=== PATIENT | female | born 1985 | race Caucasian/White ===

== ENCOUNTER 2021-03-14 15:53 | Emergency (ER) | payer MEDICAID, SELFPAY ==
--- NOTE | ~2021-03-14 | XR_ITS ---
EXAMINATION: XR CHEST CLINICAL INFORMATION: Cough and pain COMPARISON: 09/13/2017. TECHNIQUE: 2 views of the chest were obtained. FINDINGS: No significant abnormality is noted involving the heart, lungs, mediastinum, bony thorax or soft tissues. XR/XR chest 2V IMPRESSION: Unremarkable examination.
--- NOTE | 2021-03-14 18:36 | ED_ITS ---
HPI - URI/Sore Throat General Chief Complaint: Upper Respiratory Symptoms Stated Complaint: sore throat, cp, headache Time Seen by Provider: 03/14/21 18:30 Source: patient and spanish medical interpreter Mode of arrival: ambulatory Limitations: language barrier History of Present Illness HPI Narrative: 35-year-old female previously healthy here with complaints of sore throat, chest discomfort with coughing, bilateral ear pain since yesterday. No fevers, chills or shortness of breath. Patient has not received a COVID vaccine. Related Data Previous Rx's Medication Instructions Recorded benzonatate 100 mg capsule 100 mg PO TID PRN #10 cap 03/14/21 (Tessalon Perles) cyclobenzaprine 10 mg tablet 10 mg PO TID PRN #10 tab 03/14/21 ibuprofen 600 mg tablet 600 mg PO Q8H PRN #15 tab 03/14/21 Allergies Allergy/AdvReac Type Severity Reaction Status Date / Time shellfish derived Allergy Severe SWELLING Unverified 03/14/21 18:47 [SHELLFISH DERIVED] Review of Systems Review of Systems: Yes all other systems are reviewed and are negative Constitutional: Constitutional: Reports no additional constitutional complaints, Denies body ache(s), Denies chills, Denies fever(s), Denies headache(s) and Denies weakness Eyes: Eyes: Reports no additional eye complaints and Denies change in vision ENT: Reports system reviewed and no additional complaints, except as documented, Denies dizziness, Reports otalgia, Denies headache(s), Denies nasal congestion, Denies nasal discharge, Denies neck pain and Reports sore throat Cardiovascular: Cardiovascular: Reports no additional cardiovascular complaints, Reports chest pain (With coughing only), Denies leg edema and Denies dyspnea Respiratory: Respiratory: Reports no additional respiratory complaints, Reports cough and Denies dyspnea Gastrointestinal: Gastrointestinal: Reports no additional gastrointestinal complaints, Denies abdominal pain, Denies diarrhea, Denies nausea and Denies vomiting Genitourinary: Genitourinary: Reports no additional female genitourinary complaints and Denies urinary incontinence Musculoskeletal: Musculoskeletal: Reports no additional musculoskeletal complaints, Denies back pain, Denies arthralgias, Denies joint swelling, Denies neck pain, Denies numbness and Denies tingling Integumentary/Breasts: Skin/Breast: Reports system reviewed and no additional complaints, except as docu and Denies rash Neurologic: Reports system reviewed and no additional complaints, except as documented, Denies Abnormal speech present, Denies dizziness, Denies headache(s), Denies numbness, Denies tingling and Denies weakness PMFSH Past Medical History Attestation statement: The following information was validated with the patient. Source: old records reviewed and nursing notes reviewed Medical History (Updated 03/14/21 @ 20:06 by Romy Black NP) COVID-19 Social History Social History Advance Directives: No Advance Directives Information Provided: Yes Patient : No Physical Exam Vital Signs: Vital Signs: Last Vital Signs Temp 98.8 F 03/14/21 18:43 Pulse 66 03/14/21 18:43 Resp 16 03/14/21 18:43 BP 136/87 03/14/21 18:43 Pulse Ox 100 03/14/21 18:43 Body Mass Index 34.3 Const: General: cooperative, healthy appearing, comfortable and no acute distress Orientation/consciousness: patient oriented x3 Limitations: no limitations HENMT: Head: Yes normal to inspection Ears: hearing grossly normal bilaterally and TM's normal bilaterally General nose exam: Normal external nose present Face and sinus: Yes normal facial exam Mouth: Normal oral and palatal mucosa present Throat: Yes posterior oropharynx normal, Yes uvula midline, Yes abnormal tonsil (Bilateral erythema. No exudate) and No peritonsillar mass Eyes: General: appearance normal, both eyes and all related structures Pupils: Equal, round and reactive pupils present Neck: Neck: Yes normal visual inspection, Yes full ROM and Yes no lymphadenopathy Chest: Chest palpation & inspection: normal inspection of the chest Resp: Effort & Inspection: normal respiratory effort Auscultation: clear to auscultation bilaterally Cardio: Rate: regular rate Rhythm: regular rhythm Peripheral pulses: Peripheral pulses 2+ throughout GI: Inspection: Yes normal to inspection Palpation (GI): Soft to palpation and nontender Auscultation: normal bowel sounds Back/Spine/Pelvis: Thoracic/Lumbar Spine: thoracic and lumbar spine normal to inspection Skin: General skin exam: no rashes or lesions noted Neuro: General: patient oriented x3, no focal motor deficits and normal sensation to monofilament Cranial nerves: Yes Equal, round and reactive pupils present Cognition (Neuro): normal cognition Speech: No Abnormal speech present Gait exam (Neuro): Normal gait present Motor exam (neuro): 5/5 motor strength present throughout Extrem: General: Yes normal to inspection Course Course Course Narrative: 35-year-old female here with upper respiratory symptoms since yesterday. Will check COVID screen, strep screen, chest x-ray 2020-COVID screen and strep negative. Chest x-ray shows no acute finding. Hemodynamically stable. Saturations are stable. There was report that the patient was feeling short of breath however she speaking full sentences with no tachypnea noted. PERC score 0. Patient is well-appearing is tolerating p.o.. Reviewed worrisome signs and symptoms and when to return to the emergency department. Comfortable discharge home. MDM - URI/Sore Throat Medical Records Attestation: I reviewed the patient's medical records. Lab Data Attestation: I reviewed the patient's lab results. Labs: Lab Results 03/14/21 03/14/21 Range/Units 18:57 18:57 COVID-19 (STEFANI) Negative (Negative) COVID-19 Clin Com See Note S. pyogenes GrpA ANUSHA Negative (Negative) Imaging Data Chest x-ray: Attestation: I personally reviewed and interpreted this imaging study as follows: Radiologist's impression: [place] [id number] XRay Report Signed Patient: Mary Gonzalez MR#: [id number] : 1985 Acct:[id number] Age/Sex: 35 / F ADM Date: 03/14/21 Loc: .ED Attending Dr: Ordering Physician: Romy Black NP Date of Service: 03/14/21 Procedure(s): XR chest 2V Accession Number(s): [id number] cc: Romy Black NP~ EXAMINATION: XR CHEST CLINICAL INFORMATION: Cough and pain COMPARISON: 09/13/2017. TECHNIQUE: 2 views of the chest were obtained. FINDINGS: No significant abnormality is noted involving the heart, lungs, mediastinum, bony thorax or soft tissues. XR/XR chest 2V IMPRESSION: Unremarkable examination. Discharge Plan Discharge Clinical Impression: Upper respiratory infection, Chest wall muscle strain Patient Disposition: Home, Self-Care Instructions: Upper Respiratory Infection (ED), Chest Wall Pain (ED) Additional Instructions: Your COVID screen and strep test are negative Increase fluids, rest Your chest x-ray showed no evidence of pneumonia Prescriptions: New benzonatate [Tessalon Perles] 100 mg capsule 100 mg PO TID PRN (Reason: cough) Qty: 10 RF: 0 cyclobenzaprine 10 mg tablet 10 mg PO TID PRN (Reason: muscle spasm) Qty: 10 RF: 0 ibuprofen 600 mg tablet 600 mg PO Q8H PRN (Reason: pain) Qty: 15 RF: 0 Referrals: Betsy Naqvi MD [Primary Care Provider] - 2 days Stand Alone Forms: Work/School Release Interventions: ED Discharge Assessment Last Done: 03/14/21 20:19 Print Language: Ukrainian
[2021-03-14 18:43] VITALS: BP 136/87; PULSE 66; RESP 16; TEMP 37.1; O2SAT 100; BMI 34.3
[2021-03-14 19:16] LABS: Strep A Nucleic Acid Negative (Negative)
[2021-03-14 19:27] LABS: COVID-19 Test Negative (Negative); IDNOW Serial# 9DD0AD1C
== END 2021-03-14 20:20 | disposition home or self-care (01) ==
PROVIDERS: Nurse Practitioner Family; Emergency Provider Internal Medicine; PCP Pediatrics
DX: J06.9 Acute upper respiratory infection, unspecified (principal); R51.9 Headache, unspecified; H92.03 Otalgia, bilateral; Z79.899 Other long term (current) drug therapy; Z20.822 Contact with and (suspected) exposure to COVID-19
CPT/HCPCS: 36415; 71046; 87635; 87651; 99283

== ENCOUNTER 2021-05-20 15:05 | Outpatient (REF) | payer MEDICAID, SELFPAY ==
--- NOTE | ~2021-05-20 | XR_ITS ---
EXAMINATION: XR HIP, LEFT CLINICAL INFORMATION: Left hip pain since trauma 2 days ago. Unable to ambulate. COMPARISON: None TECHNIQUE: Two views of the left hip. FINDINGS: There is no fracture or dislocation. 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 The left bony pelvis appears intact. No joint narrowing or erosive change. XR/XR hip LT min 2V IMPRESSION: No fracture or dislocation.
== END 2021-05-20 15:06 | disposition home or self-care (01) ==
LOC: HO.XRAY 15:05
PROVIDERS: Absent Provider Pediatrics; PCP Pediatrics; Visit Provider Internal Medicine
DX: M25.552 Pain in left hip (principal)
CPT/HCPCS: 73502

== ENCOUNTER 2021-07-08 09:45 | Outpatient (REF) | payer MEDICAID, SELFPAY ==
--- NOTE | ~2021-07-08 | US_ITS ---
EXAMINATION: US ABDOMEN COMPLETE CLINICAL INFORMATION: Elevated liver transaminase levels. COMPARISON: None TECHNIQUE: Real-time imaging of the abdominal viscera. FINDINGS: PANCREAS: The pancreas is partly obscured. Visualized portions are unremarkable. ABDOMINAL AORTA: The proximal, mid, and distal segments are normal in caliber. INFERIOR VENA CAVA: Visualized portions are normal. LIVER: The liver is mildly echogenic consistent with hepatic steatosis. Focal fatty sparing is seen in the gallbladder fossa and kika hepatis. The liver contour is normal. Liver size is unremarkable. No focal hepatic lesion. There is no intrahepatic biliary duct dilatation seen. GALLBLADDER: Normal. The gallbladder is physiologically distended without evidence of stones, sludge, polyps, wall thickening or pericholecystic fluid. COMMON BILE DUCT: Normal in caliber measuring 0.3 cm in diameter. RIGHT KIDNEY: Normal. No hydronephrosis. No renal calculi or focal parenchymal lesions. The kidney measures 12.2 cm in maximum dimension. LEFT KIDNEY: Normal. No hydronephrosis. No renal calculi or focal parenchymal lesions. The kidney measures 11.0 cm in maximum dimension. SPLEEN: Normal. The spleen measures 11.4 cm in maximum dimension. FREE FLUID: None. US/US abdomen complete IMPRESSION: Mildly increased hepatic echogenicity consistent with hepatic steatosis. Focal fatty sparing is evident. No other abnormality.
== END 2021-07-08 09:46 | disposition home or self-care (01) ==
LOC: HO.HMGCX 09:45
PROVIDERS: Visit Provider Pediatrics
DX: R74.01 Elevation of levels of liver transaminase levels (principal)
CPT/HCPCS: 76700

== ENCOUNTER 2021-07-28 13:07 | Outpatient (REF) | payer MEDICAID, SELFPAY ==
[2021-07-28 15:00] LABS: MANUAL DIFF FLAG NO
[2021-07-28 15:08] LABS: Basophils Absolute Auto 0.1 X10*3/uL (0.0-0.2); Basophils Percent Auto 0.7 % (0-2); Eosinophils Absolute Auto 0.4 X10*3/uL (0.0-0.4); Eosinophils Percent Auto 3.4 % (0-4); Hematocrit 42.1 % (37.0-47.0); Hemoglobin 13.5 g/dl (12.0-16.0); Imm Gran Abs Auto 0.02 X10*3/uL (0.00-0.03); Imm Gran Pct Auto 0.2 % (0.0-0.4); Lymphocytes Absolute Auto 1.8 X10*3/uL (1.2-4.9); Lymphocytes Percent Auto 16.6 % (20-40); Mean Corpuscular HGB Conc 32.1 g/dl (31.0-35.0); Mean Corpuscular Hemoglobin 27.3 pg (27.0-33.0); Mean Corpuscular Volume 85.1 fL (80.0-98.0); Mean Platelet Volume 9.6 fL (9.4-12.3); Monocytes Absolute Auto 0.7 X10*3/uL (0.1-1.2); Monocytes Percent Auto 6.5 % (2-11); Neutrophils Percent Auto 72.6 % (45-73); Platelet Count 293 X10*3/uL (160-400); Red Blood Count 4.95 X10*6/uL (4.20-5.50)
[2021-07-28 15:38] LABS: Alanine Aminotransferase 328 U/L (0-31); Albumin Level 4.6 g/dL (3.5-5.0); Alkaline Phosphatase 76 U/L (39-117); Anion Gap 12 (12-20); Aspartate Amino Transferase 178 U/L (5-31); Bilirubin Total 0.4 mg/dL (0.0-1.0); Blood Urea Nitrogen 9 mg/dL (9-16); Calcium 10.3 mg/dL (8.4-10.2); Carbon Dioxide 30 mmol/L (22-29); Chloride 104 mmol/L (96-108); Estimated Glomerular Filt Rate > 60; Gamma Glutamyl Transpeptidase 324 U/L (7-33); Glucose Random 82 mg/dL (60-115); Potassium 4.7 mmol/L (3.3-5.1); Sodium 141 mmol/L (135-145); Total Protein 7.8 g/dL (6.5-8.0)
[2021-07-28 15:56] LABS: Ferritin 163 ng/mL (10-122)
[2021-07-29 08:21] LABS: HBS Num1 168.88 mIU/mL (0-7.99); HIV AB/AG Nonreactive (Nonreactive); HIV Num 1 0.04 S/CO (0.00-0.99); ~Hepatitis B Surface Antibody REACTIVE (Nonreactive)
[2021-07-29 08:35] LABS: HBc Num1 0.09 S/CO (0.00-0.79); HBsAGNum1 0.23 S/CO (0.00-0.99); Hepatitis B Core Antibody Nonreactive (Nonreactive); Hepatitis B Surface Antigen Negative (Negative)
[2021-07-29 14:15] LABS: Anti Nuclear Antibody Screen NEGATIVE (NEGATIVE)
[2021-08-01 13:16] LABS: Alpha Fetoprotein 4.2 ng/mL
[2021-08-02 15:27] LABS: Mitochondrial Antibodies NEGATIVE (NEGATIVE)
[2021-08-03 14:02] LABS: Smooth Muscle Antibody <20 U (<20)
== END 2021-07-28 13:08 | disposition home or self-care (01) ==
LOC: HO.LAB 13:07
PROVIDERS: PCP Pediatrics; Referring Provider Pediatrics; Visit Provider Nurse Practitioner
DX: Z11.4 Encounter for screening for human immunodeficiency virus [HIV] (principal); R79.89 Other specified abnormal findings of blood chemistry; K21.9 Gastro-esophageal reflux disease without esophagitis
CPT/HCPCS: 36415; 80053; 82105; 82728; 82977; 85025; 86015; 86038; 86039; 86255; 86256; 86704; 86706; 87340; 87389; 99202

== ENCOUNTER 2021-08-01 10:00 | Outpatient (RCR) | payer MEDICAID, SELFPAY | END 2021-08-23 13:51 | disposition home or self-care (01) | LOC: HO.PT 10:00 | PROVIDERS: PCP Pediatrics; Visit Provider Family Medicine | DX: M54.50 Low back pain, unspecified (principal); M25.552 Pain in left hip | CPT/HCPCS: 97110; 97162; 97530 ==

== ENCOUNTER 2021-08-24 11:05 | Outpatient (REF) | payer MEDICAID, SELFPAY ==
--- NOTE | ~2021-08-24 | US_ITS ---
EXAMINATION: US ABDOMEN LIMITED WITH LIVER ELASTOGRAPHY CLINICAL INFORMATION: [place] COMPARISON: Previous exam June 2021 TECHNIQUE: Real-time imaging of the abdominal viscera. Noninvasive ultrasound liver fibrosis assessment is performed using Justin ElastPQ point quantification shear wave elastography (2D-SWE) with a C5-2 MHz transducer. Multiple elastography samples are obtained. FINDINGS: PANCREAS: The visualized pancreatic body is normal in appearance. The remainder of the pancreas is obscured from visualization by the overlying bowel gas. LIVER: Liver echotexture is increased probably representing fatty infiltration. There are hypoechoic areas in the liver probably representing areas of focal fatty sparing. No other focal liver lesion is seen. There is no biliary duct dilatation. The liver is slightly enlarged. The right lobe measures 20 cm in length. The left lobe measures 12 cm in length. Portal flow is normal/hepatopedal Shear wave liver elastography median stiffness is 1. 9 m/s (reference: normal median stiffness is 1.3 m/s or less). IQR/median stiffness to assess sampling precision is 0.1 (reference: good quality data set is IQR/median stiffness of 0.15 or less). GALLBLADDER: Normal. The gallbladder is physiologically distended without evidence of stones, sludge, polyps, wall thickening or pericholecystic fluid. COMMON BILE DUCT: Normal in caliber measuring 0.3 cm in diameter. RIGHT KIDNEY: Normal. No hydronephrosis. No renal calculi or focal parenchymal lesions. The kidney measures 11.3 cm in maximum dimension. FREE FLUID: None. US/US abdomen angulo w elastography IMPRESSION: 1. Impression slightly enlarged echogenic liver suggestive of fatty infiltration with areas of focal fatty sparing. 2. Liver elastography: Adequate liver sampling. Suggestive of compensated advanced chronic liver disease but need further test for confirmation. REFERENCE: Society of Radiologists in Ultrasound Liver Stiffness Thresholds (2020): LIVER STIFFNESS THRESHOLDS: *Liver Stiffness equal or less than 1.3 m/s: High probability of being normal. *Liver Stiffness less than 1.7 m/s: In the absence of other known clinical signs, rules out compensated advanced chronic liver disease. *Liver Stiffness 1.7-2.1 m/s: Suggestive of compensated advanced chronic liver disease but need further test for confirmation. *Liver Stiffness over 2.1 m/s: Rules in compensated advanced chronic liver disease. *Liver Stiffness over 2.4 m/s: Suggestive of clinically significant portal hypertension. QUALITY OF DATA SET: *IQR/Median value equal or less than 0.15 implies a quality data set. *IQR/Median value over 0.15 implies a poor quality data set. SIGNIFICANT CHANGE FROM PRIOR EXAM: Significant change if liver stiffness measurement is 10% or greater from prior exam. OTHER CONSIDERATIONS: The stage of liver fibrosis may be overestimated in the setting of acute hepatitis, liver inflammation, elevated liver function tests, hepatic vascular congestion, obstructive cholestasis, non-fasting state, and infiltrative diseases such as amyloidosis and lymphoma. In some patients with NAFLD, the liver stiffness thresholds for compensated advanced chronic liver disease may be lower. In causes other than viral hepatitis and NAFLD, liver stiffness thresholds are not well established.
== END 2021-08-24 11:06 | disposition home or self-care (01) ==
LOC: HO.US 11:05
PROVIDERS: PCP Pediatrics; Visit Provider Nurse Practitioner
DX: R79.89 Other specified abnormal findings of blood chemistry (principal); K75.81 Nonalcoholic steatohepatitis (NASH)
CPT/HCPCS: 76705; 76981

== ENCOUNTER 2022-02-01 08:50 | Emergency (ER) | payer MEDICAID, SELFPAY ==
--- NOTE | ~2022-02-01 | XR_ITS ---
EXAMINATION: XR HAND, LEFT CLINICAL INFORMATION: Pain and swelling COMPARISON: None TECHNIQUE: PA, lateral, and oblique views of the left hand. FINDINGS: The bones and soft tissues are normal. No fracture. Alignment is anatomic. Joint spaces are maintained. No erosions or soft tissue calcifications. XR/XR hand LT min 3V IMPRESSION: Normal left hand.
[2022-02-01 09:02] VITALS: BP 130/86; PULSE 72; RESP 16; TEMP 36.6; O2SAT 95; BMI 37.4
--- NOTE | 2022-02-01 09:12 | ED.GENADULT ---
HPI - General Adult General Chief complaint: Extremity Problem Stated complaint: left hand pain swollen Time Seen by Provider: 02/01/22 09:12 Source: patient and foreign language interpreter Mode of arrival: ambulatory Limitations: language barrier History of Present Illness HPI narrative: Patient is a 36 year old female presenting to the emergency department today with left hand and wrist pain. Patient states that starting yesterday, her left wrist began to hurt and cause pain down into her left hand. Patient denies any dizziness, lightheadedness, abdominal pain, nausea, vomiting, fever, chills, blurry vision, double vision, loss of vision, chest pain, difficulty breathing, shortness of breath, back pain, night sweats, pain with urination, increased urinary frequency, increased urinary urgency, blood in her urine or stool, syncope or a near syncopal episode, recent trauma or falls, bowel incontinence, bladder incontinence, bowel retention, bladder retention, or any other complaints at this time. Onset (ago): day(s) (1) Severity: mild Severity scale (1-10): 3 Relieving factors: none Exacerbating factors: movement Associated symptoms: denies other symptoms Treatments prior to arrival: none Related Data Home Medications Medication Instructions Recorded Confirmed albuterol sulfate 90 mcg/actuation 0 mcg inhalation 07/28/21 aerosol inhaler (ProAir HFA) duloxetine 20 mg capsule,delayed 20 mg PO DAILY 07/28/21 release fluticasone propionate 110 2 puff inhalation BID 07/28/21 mcg/actuation HFA aerosol inhaler (Flovent HFA) Previous Rx's Medication Instructions Recorded benzonatate 100 mg capsule 100 mg PO TID PRN cough #10 caps 03/14/21 (Bertha Jean) cyclobenzaprine 10 mg tablet 10 mg PO TID PRN muscle spasm #10 03/14/21 tabs ibuprofen 600 mg tablet 600 mg PO Q8H PRN pain #15 tabs 03/14/21 famotidine 40 mg tablet (Pepcid) 40 mg PO BEDTIME #30 tabs 07/28/21 naproxen 500 mg tablet 500 mg PO BID 7 days #14 tabs 02/01/22 Allergies Allergy/AdvReac Type Severity Reaction Status Date / Time shellfish derived Allergy Severe SWELLING Verified 07/28/21 13:33 [SHELLFISH DERIVED] Review of Systems Constitutional: Constitutional: Reports no additional constitutional complaints, Denies chills, Denies fever(s) and Denies night sweats Eyes: Eyes: Reports no additional eye complaints, Denies blurry vision, Denies change in vision, Denies diplopia, Denies eye discharge, Denies loss of vision and Denies eye pain ENT: Denies dizziness Cardiovascular: Cardiovascular: Reports no additional cardiovascular complaints, Denies chest pain, Denies lightheadedness, Denies Loss of Consciousness and Denies dyspnea Respiratory: Respiratory: Reports no additional respiratory complaints and Denies dyspnea Gastrointestinal: Gastrointestinal: Reports no additional gastrointestinal complaints, Denies abdominal pain, Denies melena, Denies hematochezia, Denies change in bowel habits and Denies change in stool character Genitourinary: Genitourinary: Denies hematuria, Denies urinary frequency, Denies dysuria, Denies urinary incontinence, Denies urinary hesitancy and Denies urinary urgency Musculoskeletal: Musculoskeletal: Reports no additional musculoskeletal complaints, Denies numbness and Denies tingling Comments: left wrist pain Neurologic: Denies dizziness, Denies loss of vision, Denies numbness and Denies tingling Psychiatric: Psychiatric: Reports no additional psychiatric complaints Endocrine: Endocrine: Reports no additional endocrine complaints Hematologic/Lymphatic: Hematologic/Lymphatic: Reports no additional hematologic/lymphatic complaints Allergic/Immunologic: Allergic/Immunologic: Reports no additional allergic/immunologic complaints PMFSH Past Medical History Attestation statement: The following information was validated with the patient. Source: old records reviewed Medical History COVID-19 Social History Social History Advance Directives: No Advance Directives Information Provided: Yes Physical Exam ED Vital Signs: Vital Signs - 24 hr 02/01/22 09:02 Temperature 98 F Pulse Rate 72 Respiratory Rate 16 Blood Pressure 130/86 Pulse Oximetry 95 Oxygen Delivery Method Room Air BMI result Body Mass Index 37.4 Const General: cooperative, no acute distress, alert and awake Nutritional Appearance: well nourished Orientation/consciousness: patient oriented x3 Limitations: no limitations HENMT Head: Yes normal to inspection and Yes atraumatic Ears: hearing grossly normal bilaterally and external ears normal General nose exam: Normal external nose present, no nasal discharge noted and no epistaxis Face and sinus: Yes normal facial exam, No abrasion and No laceration Mouth: Normal oral and palatal mucosa present, no drooling and no muffled voice Eyes General: appearance normal, both eyes and all related structures Periorbital: periorbital findings normal Eyelids: Yes eyelids normal Conjunctivae: conjunctivae normal Pupils: Equal, round and reactive pupils present EOM: EOMs intact bilaterally Neck Neck: Yes normal visual inspection, Yes full ROM and Yes no lymphadenopathy Chest Chest palpation & inspection: normal inspection of the chest Resp Effort & Inspection: normal respiratory effort and able to speak in complete sentences Auscultation: clear to auscultation bilaterally Cardio Rate: regular rate Rhythm: regular rhythm GI Inspection: Yes normal to inspection Neuro General: patient oriented x3 and moves all extremities Cranial nerves: Yes Equal, round and reactive pupils present Cognition (Neuro): normal cognition Motor exam (neuro): 5/5 motor strength present throughout Sensory Exam: Normal double simultaneous stimulation for sensation Coordination: [id number] test normal Extrem Other: Pain secondary to ROM. Tinel test positive. General: Yes normal to inspection, Yes full ROM and Yes capillary refill normal Psych Appearance: grossly normal Mental Status: mental status grossly normal Affect: normal affect Attitude: cooperative Thought process: Normal thought process present Thought content: Normal thought content present Insight: Good insight present (Psych) Procedures Orthopedic Splinting/Casting Injury #1: Side: left Upper Extremity Injury Location: wrist Upper Extremity Immobilizer: wrist splint Medical Decision Making [facility] Narrative Medical decision making narrative: Patient is a 36 year old female presenting to the emergency department today with left wrist pain. Patient's physical exam showed a positive tinel test of the left wrist. Patient's left hand x-ray showed no acute process. I explained my physical exam findings as well as all test results to the patient. I answered all questions asked by the patient. Patient received IM Toradol which she stated helped her symptoms significantly. Patient's left wrist was placed in a velcro splint, without incident. I stressed the importance of the patient taking her medication as prescribed. I stressed the importance of the patient following up with her primary care provider and an orthopedic provider. I stressed the importance of the patient returning to the emergency department immediately if her symptoms were to worsen or if she were to develop any dizziness, shortness of breath, difficulty breathing, chest pain, blurry vision, loss of vision, nausea, vomiting, abdominal pain, fever, chills, back pain, or any other complaints. Patient verbalized agreement and understanding with this treatment plan and discharge. Differential Diagnosis Differential Diagnosis: Carpal tunnel syndrome Medical Records Medical records reviewed: Yes I reviewed the patient's medical records. Imaging Data Left hand x-ray: Attestation: I personally reviewed and interpreted this imaging study as follows: My impression: No acute process. Radiologist's impression: EXAMINATION: XR HAND, LEFT CLINICAL INFORMATION: Pain and swelling? COMPARISON: None? TECHNIQUE: PA, lateral, and oblique views of the left hand. FINDINGS: The bones and soft tissues are normal. No fracture. Alignment is anatomic. Joint spaces are maintained. No erosions or soft tissue calcifications.? XR/XR hand LT min 3V IMPRESSION: Normal left hand. Dictated By: Clau Cantu MD Signed By: Electronically signed by Clau Cantu MD 02/01/22 1058 Discharge Plan Discharge Clinical Impression: Carpal tunnel syndrome Patient Disposition: Home, Self-Care Instructions: Carpal Tunnel Surgery (DC) Additional Instructions: Follow up with your primary care provider and an orthopedic provider. Return to the emergency department immediately if your symptoms worsen or if you develop any dizziness, shortness of breath, difficulty breathing, chest pain, blurry vision, loss of vision, nausea, vomiting, abdominal pain, fever, chills, back pain, or any other complaints. Fab un seguimiento con grace proveedor de atenci?n primaria y un proveedor ortop?dico. Regrese al departamento de emergencias de inmediato si valorie s?ntomas empeoran o si presenta mareos, falta de aire, dificultad para respirar, dolor en el pecho, visi?n borrosa, p?rdida de la visi?n, n?useas, v?mitos, dolor abdominal, fiebre, escalofr?os, dolor de espalda o cualquier otras quejas. Prescriptions: New naproxen 500 mg tablet 500 mg PO BID 7 Days Qty: 14 0RF Rx Instructions: Do NOT start until 02/02/2022 No Action benzonatate [Tessalon Perles] 100 mg capsule 100 mg PO TID PRN (Reason: cough) Qty: 10 0RF cyclobenzaprine 10 mg tablet 10 mg PO TID PRN (Reason: muscle spasm) Qty: 10 0RF ibuprofen 600 mg tablet 600 mg PO Q8H PRN (Reason: pain) Qty: 15 0RF Flovent HFA 110 mcg/actuation HFA aerosol inhaler 2 puff inhalation BID duloxetine 20 mg capsule,delayed release(DR/EC) 20 mg PO DAILY albuterol sulfate [ProAir HFA] 90 mcg/actuation HFA aerosol inhaler 0 mcg inhalation famotidine [Pepcid] 40 mg tablet 40 mg PO BEDTIME Qty: 30 6RF Referrals: [facility] [place] [facility] [Provider Group] (Follow up with an orthopedic provider. Seguimiento con un proveedor ortop?dico.) Betsy Naqvi MD [Primary Care Provider] - (Follow up with your primary care provider. Fab un seguimiento con grace proveedor de atenci?n primaria.) Stand Alone Forms: Work/School Release Interventions: ED Discharge Assessment Last Done: 02/01/22 10:38 Discharge Date/Time: 02/01/22 10:39 Print Language: Slovak
[2022-02-01] MEDS: Ketorolac Tromethamine 15 MG/ML VIAL IM (10:16)
== END 2022-02-01 10:39 | disposition home or self-care (01) ==
PROVIDERS: Emergency Provider Emergency Medicine; PCP Pediatrics
DX: G56.02 Carpal tunnel syndrome, left upper limb (principal)
CPT/HCPCS: 73130; 96372; 99284; J1885

== ENCOUNTER 2022-05-04 17:31 | Emergency (ER) | payer MEDICAID, SELFPAY ==
--- NOTE | ~2022-05-04 | US_ITS ---
EXAMINATION: US VENOUS WITH DOPPLER UPPER EXTREMITY, RIGHT CLINICAL INFORMATION: On blood thinners right arm swelling, lump, history of PE COMPARISON: None TECHNIQUE: Ultrasound of the upper extremity is performed using compression sonography and color and pulse Doppler flow with assessment of augmentation of flow. There is also imaging and Doppler assessment of the jugular and subclavian veins. Spectral analysis with color-flow imaging is performed. FINDINGS: Respiratory variation, normal compression, and augmented flow are noted throughout the upper extremity including the axillary, brachial, cubital, and radial and ulnar veins. There is normal flow in the internal jugular and subclavian veins. There is no visible deep or superficial thrombophlebitis. If the patient's symptoms progress, a followup ultrasound in 5 -7 days might be of value to exclude proximal propagation from a nonvisualized distal arm vein. US/US venous duplex UE RT IMPRESSION: No DVT demonstrated in the right upper extremity. 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 Mid forearm. Measures 1.1 x 0.6 x 1.3 cm. Approximately 5 mm deep to the skin This could represent an abscess versus complex cystic lesion of other etiology. Correlation recommended clinically. If further evaluation is warranted consider MR
[2022-05-04 18:12] VITALS: BP 135/80; PULSE 74; RESP 18; TEMP 36.2; O2SAT 100; BMI 45.7
--- NOTE | 2022-05-04 20:32 | ED.SKABFB ---
HPI - Skin/Abscess/Foreign Bdy General Chief complaint: Skin/Abscess/Foreign Body Stated complaint: lump in right forearm 4x days Time Seen by Provider: 05/04/22 18:36 Source: patient and family Mode of arrival: ambulatory Limitations: no limitations History of Present Illness complaint: abscess/boil Onset (ago): day(s) (4) Location: RUE Severity: moderate Quality: aching and constant Pain Consistency: constant Relieving factors: none Exacerbating factors: palpation Context: none Associated symptoms: denies other symptoms Treatments prior to arrival: none Related Data Home Medications Medication Instructions Recorded Confirmed albuterol sulfate 90 mcg/actuation 0 mcg inhalation 07/28/21 aerosol inhaler (ProAir HFA) duloxetine 20 mg capsule,delayed 20 mg PO DAILY 07/28/21 release fluticasone propionate 110 2 puff inhalation BID 07/28/21 mcg/actuation HFA aerosol inhaler (Flovent HFA) Previous Rx's Medication Instructions Recorded benzonatate 100 mg capsule 100 mg PO TID PRN cough #10 caps 03/14/21 (Bertha Jean) cyclobenzaprine 10 mg tablet 10 mg PO TID PRN muscle spasm #10 03/14/21 tabs ibuprofen 600 mg tablet 600 mg PO Q8H PRN pain #15 tabs 03/14/21 famotidine 40 mg tablet (Pepcid) 40 mg PO BEDTIME #30 tabs 07/28/21 naproxen 500 mg tablet 500 mg PO BID 7 days #14 tabs 02/01/22 cephalexin 500 mg capsule 500 mg PO Q6H 10 days #40 caps 05/04/22 doxycycline monohydrate 100 mg 100 mg PO BID 10 days #20 tabs 05/04/22 tablet ibuprofen 800 mg tablet 800 mg PO Q8H PRN pain #14 tabs 05/04/22 oxycodone 5 mg tablet 5 mg PO Q6H PRN pain #10 tabs 05/04/22 Allergies Allergy/AdvReac Type Severity Reaction Status Date / Time shellfish derived Allergy Severe SWELLING Verified 07/28/21 13:33 [SHELLFISH DERIVED] Review of Systems Review of Systems: Constitutional : Denies history of same, Denies any other sites involved, Denies IV drug use, Denies history of MRSA, Denies swollen glands, Denies injury, Denies Fever, Denies Chills, + Sig Pain, Denies Systemic symptoms Cardiovascular : No Chest Pain, No SOB Respiratory : No Dyspnea Gastrointestinal : No abdominal pain Musculoskeletal : No Joint Swelling Skin : + abscess, No surrounding erythema, No skin laceration, No Foreign bodies, No spreading rash, Denies bites, Denies discharge, Neuro : No Weakness, No Numbness/tingling Psych : No SI/HI/thoughts of self injury Yes all other systems are reviewed and are negative [facility] Past Medical History Attestation statement: The following information was validated with the patient. Source: old records reviewed, obtained from family and nursing notes reviewed Medical History COVID-19 Social History Social History Advance Directives: No Advance Directives Information Provided: No Physical Exam Vital Signs: Vital Signs: Last Vital Signs Temp 97.2 F 05/04/22 18:12 Pulse 74 05/04/22 18:12 Resp 18 05/04/22 18:12 BP 135/80 05/04/22 18:12 Pulse Ox 100 05/04/22 18:12 O2 Del Method 05/04/22 18:12 BMI result Body Mass Index 45.7 vital signs have been reviewed as normal and appeared to be correct. Blood pressure normal Heart rate normal. Respiration rate normal. Temperature normal. Oxygen saturation normal. Appearance: Alert. Oriented X3. No acute distress. Head: Normal external exam. Normocephalic. Atraumatic. Eyes: PERRLA. EOMI. Conjunctiva and sclera normal. Eyelids normal. ENT: Pharynx normal. Uvula midline. Moist mucous membranes. Neck: Normal inspection. Neck supple. FROM. CVS: Normal heart rate and rhythm. Respiratory: No respiratory distress. Painless inspiration. Skin: Skin warm and dry. Normal skin color. Normal skin turgor. No rashes/lesions/lacerations noted. Extremities: Patient with fluctuant tenderness to mid forearm questioning DVT versus abscess. No surrounding erythema/purulent drainage/foreign bodies or rashes noted. Otherwise patient moving all extremities and all other extremities are nontender. Neuro: Oriented X 3. No motor deficit. No sensory deficit. Reflexes normal. Normal steady gait. No focal neuro deficits noted. Vascular: + radial pulses/+ 2 distal pedal pulses/+2 dorsalis pedis b/l. Normal cap refill. No cyanosis noted to upper extremity nails and lower extremity toes nails. Course Course Course Narrative: IMP/Plan: abscess. No systemic toxicity, and pt looks well. No surrounding cellulitis. Not c/w nec fasc/ myositis/ DVT/ osteomyelitis. patient now status post I&D of abscess and patient tolerated procedure well. Only some mild bloody drainage. No additional labs or imaging indicated as ultrasound revealed possible abscess versus cyst. No complications. Will DC home antibiotics and symptomatic treatment instructions return if any new or worsening symptoms to follow up with primary care provider/general surgeon. Patient understands agrees this plan. Procedures Abscess I/D Site: upper extremity Side (if applicable): right Local Anesthetic: lidocaine 1% Amount of anesthesia used (mL): 5 Technique: needle aspiration and incised with blade Amount of fluid expressed (mL): 1 Sent for culture/gram staining?: No Irrigation: Yes Packing used?: none Complications: other (No complications) Discharge Plan Discharge Clinical Impression: Abscess of skin or subcutaneous tissue Patient Disposition: Home, Self-Care Instructions: Abscess Incision and Drainage (DC) Prescriptions: New doxycycline monohydrate 100 mg tablet 100 mg PO BID 10 Days Qty: 20 0RF cephalexin 500 mg capsule 500 mg PO Q6H 10 Days Qty: 40 0RF ibuprofen 800 mg tablet 800 mg PO Q8H PRN (Reason: pain) Qty: 14 0RF oxycodone 5 mg tablet 5 mg PO Q6H PRN (Reason: pain) Qty: 10 0RF Rx Instructions: Partial Fill upon patient request. No Action benzonatate [Tessalon Perles] 100 mg capsule 100 mg PO TID PRN (Reason: cough) Qty: 10 0RF cyclobenzaprine 10 mg tablet 10 mg PO TID PRN (Reason: muscle spasm) Qty: 10 0RF ibuprofen 600 mg tablet 600 mg PO Q8H PRN (Reason: pain) Qty: 15 0RF naproxen 500 mg tablet 500 mg PO BID 7 Days Qty: 14 0RF Rx Instructions: Do NOT start until 02/02/2022 Flovent HFA 110 mcg/actuation HFA aerosol inhaler 2 puff inhalation BID duloxetine 20 mg capsule,delayed release(DR/EC) 20 mg PO DAILY albuterol sulfate [ProAir HFA] 90 mcg/actuation HFA aerosol inhaler 0 mcg inhalation famotidine [Pepcid] 40 mg tablet 40 mg PO BEDTIME Qty: 30 6RF Referrals: Betsy Naqvi MD [Primary Care Provider] - 3 days Tho Andersen MD [Physician] - (Call to make a follow-up appointment) Stand Alone Forms: Work/School Release
== END 2022-05-04 20:47 | disposition home or self-care (01) ==
PROVIDERS: Emergency Provider Emergency Medicine; PCP Pediatrics
DX: L02.413 Cutaneous abscess of right upper limb (principal); M79.631 Pain in right forearm
CPT/HCPCS: 10060; 93971; 99282; 99284

== ENCOUNTER 2023-03-07 10:05 | Outpatient (REF) | payer MEDICAID, SELFPAY ==
[2023-03-07 14:18] LABS: MANUAL DIFF FLAG NO
[2023-03-07 14:33] LABS: Basophils Absolute Auto 0.1 X10*3/uL (0.0-0.2); Eosinophils Absolute Auto 0.4 X10*3/uL (0.0-0.4); Eosinophils Percent Auto 6.5 % (0-4); Hematocrit 39.6 % (37.0-47.0); Hemoglobin 12.5 g/dl (12.0-16.0); Imm Gran Abs Auto 0.01 X10*3/uL (0.00-0.03); Imm Gran Pct Auto 0.2 % (0.0-0.4); Mean Corpuscular HGB Conc 31.6 g/dl (31.0-35.0); Mean Corpuscular Hemoglobin 26.3 pg (27.0-33.0); Mean Corpuscular Volume 83.2 fL (80.0-98.0); Mean Platelet Volume 10.1 fL (9.4-12.3); Monocytes Absolute Auto 0.3 X10*3/uL (0.1-1.2); Monocytes Percent Auto 4.7 % (2-11); Neutrophils Absolute Auto 3.4 x10*3/uL (2.0-8.3); Neutrophils Percent Auto 55.6 % (45-73); Platelet Count 273 X10*3/uL (160-400); Red Blood Count 4.76 X10*6/uL (4.20-5.50); Red Cell Distribution Width 15.4 % (11.0-16.0); White Blood Count 6.2 X10*3/uL (4.8-10.8)
[2023-03-07 14:39] LABS: Estimated Average Glucose 108 mg/dL; Hemoglobin A1c % 5.4 %
[2023-03-07 14:48] LABS: Appearance Urine Cloudy; Color Urine Yellow; Glucose Urine UA Negative (Negative); Leukocyte Esterase Urine Negative (Negative); Nitrite Urine Negative (Negative); Urine Blood Negative (Negative); Urine Ketones Negative (Negative); Urine Protein Negative (Neg-Trace)
[2023-03-07 15:42] LABS: Alanine Aminotransferase 41 U/L (0-31); Alkaline Phosphatase 56 U/L (39-117); Anion Gap 14 (12-20); Aspartate Amino Transferase 32 U/L (5-31); Bilirubin Direct 0.1 mg/dL (0.0-0.5); Bilirubin Total 0.5 mg/dL (0.0-1.0); Blood Urea Nitrogen 12 mg/dL (9-16); C Reactive Protein 0.54 mg/dL (< or = 0.50); Calcium 9.3 mg/dL (8.4-10.2); Carbon Dioxide 26 mmol/L (22-29); Chloride 102 mmol/L (96-108); Cholesterol 262 mg/dL; Estimated Glomerular Filt Rate > 60; Glucose Fasting 136 mg/dL (60-99); HDL Cholesterol 50 mg/dL; LDL Cholesterol Calculated 163 mg/dl; Potassium 3.8 mmol/L (3.3-5.1); Sodium 138 mmol/L (135-145); Total Protein 6.8 g/dL (6.5-8.0); Triglycerides 245 mg/dL
[2023-03-07 15:43] LABS: TSH reflex Free T4 33.51 uIU/mL (0.32-4.0); Vitamin D 25-OH Total 15.9 ng/mL (>30)
[2023-03-07 16:21] LABS: Free T4 (Free Thyroxine) 0.64 ng/dL (0.71-1.85)
== END 2023-03-07 10:06 | disposition home or self-care (01) ==
LOC: HO.CHCLDS 10:05
PROVIDERS: Visit Provider Pediatrics
DX: R79.89 Other specified abnormal findings of blood chemistry (principal); E03.8 Other specified hypothyroidism; E06.9 Thyroiditis, unspecified
CPT/HCPCS: 36415; 80048; 80061; 80076; 81003; 82306; 83036; 84439; 84443; 85025; 86140

== ENCOUNTER 2023-04-13 08:18 | Outpatient (REF) | payer MEDICAID, SELFPAY ==
[2023-04-13 15:09] LABS: TSH reflex Free T4 2.57 uIU/mL (0.32-4.0)
== END 2023-04-13 08:19 | disposition home or self-care (01) ==
LOC: HO.CHCLDS 08:18
PROVIDERS: Visit Provider Pediatrics
DX: E03.8 Other specified hypothyroidism (principal); E06.9 Thyroiditis, unspecified
CPT/HCPCS: 36415; 84443

== ENCOUNTER 2023-08-09 11:22 | Outpatient (REF) | payer MEDICAID, SELFPAY ==
[2023-08-09 15:34] LABS: TSH reflex Free T4 0.04 uIU/mL (0.32-4.0); Vitamin D 25-OH Total 35.1 ng/mL (>30)
[2023-08-09 16:17] LABS: Free T4 (Free Thyroxine) 0.93 ng/dL (0.71-1.85)
== END 2023-08-09 11:23 | disposition home or self-care (01) ==
LOC: HO.CHCLDS 11:22
PROVIDERS: Visit Provider Pediatrics
DX: E03.8 Other specified hypothyroidism (principal); E06.9 Thyroiditis, unspecified; R79.89 Other specified abnormal findings of blood chemistry
CPT/HCPCS: 36415; 82306; 84439; 84443

== ENCOUNTER → 2023-11-27 13:40 | Outpatient (BNVA) | payer MEDICAID, SELFPAY | PROVIDERS: PCP Pediatrics; Visit Provider Physician Assistant Surgical ==

== ENCOUNTER 2023-11-30 16:51 | Emergency (ER) | payer MEDICAID, SELFPAY ==
[2023-11-30 17:16] VITALS: BP 156/86; PULSE 83; RESP 20; TEMP 37.1; O2SAT 97; BMI 35.9
--- NOTE | 2023-11-30 17:25 | ED_ITS ---
HPI - Eye Problem General Chief complaint: Eye Problems Stated complaint: L eye swelling Time Seen by Provider: 11/30/23 17:53 Source: patient Mode of arrival: ambulatory Limitations: no limitations History of Present Illness HPI Narrative: This is a 37yof with pmhx anxiety/depression, hypothyroidism, fatty liver, allergic rhinitis who presents for left eye edema and pruritus. She states she has had these symptoms intermittently over the last few weeks. She states associated nasal congestion. She reports taking Avelina and daily for the last several days. She reports also using a nasal spray. She says she also used ?Visine eyedrops ?. She reports that she felt like her eyes were getting itchy and watery over the last few hours for this reason she comes to the emergency room. She states sensation of eyelid puffiness. She states no vision change or loss. She states no eye pain. She states no recent fever, headache or hearing changes. She says the trauma or falls. Related Data Home Medications ?Medication ?Instructions ?Recorded ?Confirmed albuterol sulfate 90 mcg/actuation 0 mcg inhalation 07/28/21 aerosol inhaler (ProAir HFA) duloxetine 20 mg capsule,delayed 20 mg PO DAILY 07/28/21 release fluticasone propionate 110 2 puff inhalation BID 07/28/21 mcg/actuation HFA aerosol inhaler (Flovent HFA) ergocalciferol (vitamin D2) 1,250 1,250 mcg PO QWEEK 11/27/23 mcg (50,000 unit) capsule fluticasone propionate 50 1 - 2 spray intranasal DAILY PRN 11/27/23 mcg/actuation nasal spray,suspension Previous Rx's ?Medication ?Instructions ?Recorded benzonatate 100 mg capsule 100 mg PO TID PRN cough #10 caps 03/14/21 (Bertha Jean) cyclobenzaprine 10 mg tablet 10 mg PO TID PRN muscle spasm #10 03/14/21 tabs ibuprofen 600 mg tablet 600 mg PO Q8H PRN pain #15 tabs 03/14/21 famotidine 40 mg tablet (Pepcid) 40 mg PO BEDTIME #30 tabs 07/28/21 naproxen 500 mg tablet 500 mg PO BID 7 days #14 tabs 02/01/22 doxycycline monohydrate 100 mg 100 mg PO BID 10 days #20 tabs 05/04/22 tablet ibuprofen 800 mg tablet 800 mg PO Q8H PRN pain #14 tabs 05/04/22 oxycodone 5 mg tablet 5 mg PO Q6H PRN pain #10 tabs 05/04/22 cetirizine 10 mg capsule (Zyrtec) 10 mg PO DAILY #10 caps 11/30/23 oxymetazoline 0.05 % nasal mist 2 spray intranasal Q12H PRN nasal 11/30/23 (Afrin (oxymetazoline)) congestion 3 days #15 mL Allergies Allergy/AdvReac Type Severity Reaction Status Date / Time shellfish derived Allergy Severe SWELLING Verified 11/30/23 17:18 [SHELLFISH DERIVED] Review of Systems Review of Systems: ROS as per HPI [facility] Past Medical History Medical History (Updated 11/30/23 @ 18:34 by Bin Andrews MD) COVID-19 Surgical History (Updated 11/27/23 @ 13:58 by Joyce Avalos CMA) No history of previous surgery Family History Family History (Updated 11/27/23 @ 14:01 by Joyce Avalos CMA) Mother No problems noted. Father Hypertension Diabetes Heart problem Daughter No problems noted. Son No problems noted. Social History Social History (Updated 11/27/23 @ 13:58 by Joyce Avalos CMA) Alcohol intake: current Alcohol intake frequency: holidays/special occasions only Patient Tobacco Use Status: Never used Tobacco Advance Directives: No Advance Directives Information Provided: No Do you have a plan to hurt others: No Plan Physical Exam Vital Signs: Vital Signs: Last Vital Signs Temp 98.8 F 11/30/23 17:16 Pulse 83 11/30/23 17:16 Resp 20 11/30/23 17:16 BP 156/86 H 11/30/23 17:16 Pulse Ox 97 11/30/23 17:16 O2 Del Method Room Air 11/30/23 17:16 BMI result Body Mass Index 35.9 Gen: NAD, AOx3 HEENT: NCAT, EOMI without pain, mild bilateral clear drainage, mild bilateral upper eyelid edema L>R, faint bilateral conjunctival infection, no purulent drainage to bilateral eyes, no ocular proptosis, no blepharitis, no hyphema or hypopyon CV: RRR Pulm: CTAB, no increased work of breathing GI: Soft, NTND, no rebound, guarding or rigidity Neuro: Grossly non focal Course Course Course Narrative: This is a rapid medical exam performed by Raina Falcon NP: Additional HPI, ROS, PE not included below will be deferred to primary provider. Patient is a 37-year-old female presenting to the emergency department with complaint of left eye pain. States while driving she developed itching, then went home and washed her eye with water and used red eye drops. Denies current itching but complains of pain and some blurred vision. Wears glasses, no contacts. Plan: visual acuity, tetracaine and fluorescein ordered Medical Decision Making Medical Decision Making MDM Narrative: Differential diagnosis includes, but is not limited to allergic conjunctivitis, allergic rhinitis, viral conjunctivitis. Considered corneal abrasion/foreign body, but history is not suggestive of this. Considered infectious etiology, but history and exam are not suggestive periorbital cellulitis or orbital cellulitis. I do not suspect globe rupture given history and exam. Patient is afebrile and hemodynamically stable on room air. Exam is benign and reassuring. Given past medical history of allergic rhinitis and reported seasonal allergies, I do have high clinical suspicion for allergic conjunctivitis/rhinitis and I will treat it as such. Patient is currently taking Avelina and Flonase. I will provide patient with prescription for Cetirizine and trial of Afrin for relief of congestion. I recommended that she discontinue Avelina while trialing cetirizine. On re-examination, patient is well-appearing and in no acute distress. ?There is no indication for further emergent evaluation in this otherwise well-appearing patient as above. ?Patient is provided written and verbal instructions, prescription for cetirizine and Afrin, educational materials, recommendations for outpatient follow-up, strict return precautions and teach back is performed. ?Patient states understanding and agreement with plan of care. ?Patient is disch arged home in stable and improved condition. Discharge Plan Discharge Clinical Impression: Allergic rhinitis Qualifiers: Allergic rhinitis trigger: unspecified Patient Disposition: Home, Self-Care Additional Instructions: You were evaluated in the emergency room. Please continue using your Flonase nasal spray once per day in each nostril. A prescription for Cetirizine is sent to your pharmacy. Please take every day in the morning for the next several days. Please do not take Avelina when using this medication. Please continue using your Flonase 1 spray per nostril per day. You are also given a prescription for Afrin nasal. Please use this as directed for the next few days and then discontinue use. Please follow up with your primary care doctor and consider allergy testing as an outpatient. Please return to the emergency room if you develop any new or worsening symptoms including, but not limited to vision loss, eye pain, fever or increased redness/swelling to your eye. Prescriptions: New Afrin (oxymetazoline) 0.05 % mist 2 spray intranasal Q12H PRN (Reason: nasal congestion) 3 Days Qty: 15 0RF Zyrtec 10 mg capsule 10 mg PO DAILY Qty: 10 0RF No Action benzonatate [Tessalon Perles] 100 mg capsule 100 mg PO TID PRN (Reason: cough) Qty: 10 0RF cyclobenzaprine 10 mg tablet 10 mg PO TID PRN (Reason: muscle spasm) Qty: 10 0RF ibuprofen 600 mg tablet 600 mg PO Q8H PRN (Reason: pain) Qty: 15 0RF naproxen 500 mg tablet 500 mg PO BID 7 Days Qty: 14 0RF Rx Instructions: Do NOT start until 02/02/2022 doxycycline monohydrate 100 mg tablet 100 mg PO BID 10 Days Qty: 20 0RF ibuprofen 800 mg tablet 800 mg PO Q8H PRN (Reason: pain) Qty: 14 0RF oxycodone 5 mg tablet 5 mg PO Q6H PRN (Reason: pain) Qty: 10 0RF Rx Instructions: Partial Fill upon patient request. Flovent HFA 110 mcg/actuation HFA aerosol inhaler 2 puff inhalation BID duloxetine 20 mg capsule,delayed release(DR/EC) 20 mg PO DAILY albuterol sulfate [ProAir HFA] 90 mcg/actuation HFA aerosol inhaler 0 mcg inhalation famotidine [Pepcid] 40 mg tablet 40 mg PO BEDTIME Qty: 30 6RF ergocalciferol (vitamin D2) 1,250 mcg (50,000 unit) capsule 1,250 mcg PO QWEEK fluticasone propionate 50 mcg/actuation spray,suspension 1 - 2 spray intranasal DAILY PRN Print Language: Belgian
[2023-11-30 19:03] VITALS: BP 156/86; PULSE 83; RESP 20; TEMP 37.1; O2SAT 97
--- NOTE | 2023-11-30 19:05 | PC.NURSE ---
Patient discharged prior to my arrival in [facility] by provider.
== END 2023-11-30 19:05 | disposition home or self-care (01) ==
PROVIDERS: Emergency Provider Emergency Medicine; PCP Pediatrics
DX: J30.9 Allergic rhinitis, unspecified (principal); H02.845 Edema of left lower eyelid; R09.81 Nasal congestion
CPT/HCPCS: 99282; 99283

== ENCOUNTER 2024-01-11 18:09 | Emergency (ER) | payer MEDICAID, SELFPAY ==
[2024-01-11 18:11] VITALS: BP 115/71; PULSE 99; RESP 18; TEMP 36.1; O2SAT 96; BMI 36.1
--- NOTE | 2024-01-11 18:12 | ED.GENADULT ---
HPI - General Adult General Chief complaint: Urogenital-Female Stated complaint: Dark urine Time Seen by Provider: 01/11/24 18:54 Source: patient and coal pulverizing operator (All interactions with this patient were facilitated with an [facility] pastry decorator) Mode of arrival: ambulatory Limitations: language barrier (All interactions with this patient were facilitated with an [facility] pastry decorator) History of Present Illness ED Provider: Laura Zuniga PA-C HPI narrative: Patient is a 38 year old assigned female at with a history of GERD presenting to the emergency department today with dark urine. Patient states that she urinated and noticed it was darker in color than usual. Patient denies any dizziness, lightheadedness, abdominal pain, nausea, vomiting, fever, chills, blurry vision, double vision, loss of vision, chest pain, difficulty breathing, shortness of breath, back pain, night sweats, pain with urination, increased urinary frequency, increased urinary urgency, blood in her urine or stool, syncope or a near syncopal episode, recent trauma or falls, bowel incontinence, bladder incontinence, or any other complaints at this time. Relieving factors: none Exacerbating factors: none Associated symptoms: denies other symptoms Treatments prior to arrival: none Related Data Home Medications ?Medication ?Instructions ?Recorded ?Confirmed albuterol sulfate 90 mcg/actuation 0 mcg inhalation 07/28/21 aerosol inhaler (ProAir HFA) duloxetine 20 mg capsule,delayed 20 mg PO DAILY 07/28/21 release fluticasone propionate 110 2 puff inhalation BID 07/28/21 mcg/actuation HFA aerosol inhaler (Flovent HFA) ergocalciferol (vitamin D2) 1,250 1,250 mcg PO QWEEK 11/27/23 mcg (50,000 unit) capsule fluticasone propionate 50 1 - 2 spray intranasal DAILY PRN 11/27/23 mcg/actuation nasal spray,suspension Previous Rx's ?Medication ?Instructions ?Recorded benzonatate 100 mg capsule 100 mg PO TID PRN cough #10 caps 03/14/21 (Bertha Jean) cyclobenzaprine 10 mg tablet 10 mg PO TID PRN muscle spasm #10 03/14/21 tabs ibuprofen 600 mg tablet 600 mg PO Q8H PRN pain #15 tabs 03/14/21 famotidine 40 mg tablet (Pepcid) 40 mg PO BEDTIME #30 tabs 07/28/21 naproxen 500 mg tablet 500 mg PO BID 7 days #14 tabs 02/01/22 doxycycline monohydrate 100 mg 100 mg PO BID 10 days #20 tabs 05/04/22 tablet ibuprofen 800 mg tablet 800 mg PO Q8H PRN pain #14 tabs 05/04/22 oxycodone 5 mg tablet 5 mg PO Q6H PRN pain #10 tabs 05/04/22 cetirizine 10 mg capsule (Zyrtec) 10 mg PO DAILY #10 caps 11/30/23 oxymetazoline 0.05 % nasal mist 2 spray intranasal Q12H PRN nasal 11/30/23 (Afrin (oxymetazoline)) congestion 3 days #15 mL Allergies Allergy/AdvReac Type Severity Reaction Status Date / Time shellfish derived Allergy Severe SWELLING Verified 01/11/24 18:14 [SHELLFISH DERIVED] Review of Systems Constitutional: Constitutional: Reports no additional constitutional complaints, Denies chills, Denies fever(s) and Denies night sweats Eyes: Eyes: Reports no additional eye complaints, Denies blurry vision, Denies change in vision, Denies diplopia, Denies eye discharge, Denies loss of vision and Denies eye pain ENT: Denies dizziness Cardiovascular: Cardiovascular: Reports no additional cardiovascular complaints, Denies chest pain, Denies lightheadedness, Denies Loss of Consciousness and Denies dyspnea Respiratory: Respiratory: Reports no additional respiratory complaints and Denies dyspnea Gastrointestinal: Gastrointestinal: Reports no additional gastrointestinal complaints, Denies abdominal pain, Denies melena, Denies hematochezia, Denies change in bowel habits and Denies change in stool character Genitourinary: Genitourinary: Denies hematuria, Denies urinary frequency, Denies dysuria, Denies urinary incontinence, Denies urinary hesitancy and Denies urinary urgency Comments: dark urine Musculoskeletal: Musculoskeletal: Reports no additional musculoskeletal complaints, Denies numbness and Denies tingling Neurologic: Denies dizziness, Denies loss of vision, Denies numbness and Denies tingling Psychiatric: Psychiatric: Reports no additional psychiatric complaints Endocrine: Endocrine: Reports no additional endocrine complaints Hematologic/Lymphatic: Hematologic/Lymphatic: Reports no additional hematologic/lymphatic complaints Allergic/Immunologic: Allergic/Immunologic: Reports no additional allergic/immunologic complaints PMFSH Past Medical History Attestation statement: The following information was validated with the patient. Source: old records reviewed and nursing notes reviewed Medical History COVID-19 Surgical History No history of previous surgery Family History Family History Mother No problems noted. Father Hypertension Diabetes Heart problem Daughter No problems noted. Son No problems noted. Social History Social History Alcohol intake: current Alcohol intake frequency: holidays/special occasions only Patient Tobacco Use Status: Never used Tobacco Advance Directives: No Advance Directives Information Provided: No Do you have a plan to hurt others: No Plan Physical Exam ED Vital Signs: Vital Signs - 24 hr 01/11/24 18:11 01/11/24 19:38 Temperature 96.9 F 98.0 F Pulse Rate 99 84 Respiratory Rate 18 16 Blood Pressure 115/71 126/52 L Pulse Oximetry 96 96 Oxygen Delivery Method Room Air Room Air BMI result Body Mass Index 36.1 Const General: cooperative, no acute distress, alert and awake Nutritional Appearance: well nourished Orientation/consciousness: patient oriented x3 Limitations: no limitations HENMT Head: Yes normal to inspection and Yes atraumatic Ears: hearing grossly normal bilaterally and external ears normal General nose exam: Normal external nose present, no nasal discharge noted and no epistaxis Face and sinus: Yes normal facial exam, No abrasion and No laceration Mouth: Normal oral and palatal mucosa present, no drooling and no muffled voice Eyes General: appearance normal, both eyes and all related structures Periorbital: periorbital findings normal Eyelids: Yes eyelids normal Conjunctivae: conjunctivae normal Pupils: Equal, round and reactive pupils present EOM: EOMs intact bilaterally Neck Neck: Yes normal visual inspection, Yes full ROM and Yes no lymphadenopathy Chest Chest palpation & inspection: normal inspection of the chest Resp Effort & Inspection: normal respiratory effort and able to speak in complete sentences GI Inspection: Yes normal to inspection Neuro General: patient oriented x3 and moves all extremities Cranial nerves: Yes Equal, round and reactive pupils present Cognition (Neuro): normal cognition Motor exam (neuro): 5/5 motor strength present throughout Sensory Exam: Normal double simultaneous stimulation for sensation Coordination: [id number] test normal Extrem General: Yes normal to inspection, Yes full ROM and Yes capillary refill normal Psych Appearance: grossly normal Mental Status: mental status grossly normal Affect: normal affect Attitude: cooperative Thought process: Normal thought process present Thought content: Normal thought content present Insight: Good insight present (Psych) Course Course Course Narrative: RME performed by Laura Zuniga PA-C. Patient is a 38 year old assigned female at presenting to the emergency department with dark urine. Patient states she noticed when she urinated today, it was dark. Detailed physical exam and review of systems are deferred to the director of primary care. Labs ordered. Patient placed back in the waiting room pending room availability and results. Medical Decision Making Medical Decision Making [facility] Narrative: Patient is a 38 year old assigned female at with a history of GERD presenting to the emergency department today with dark urine. Patient's physical exam was unremarkable. Patient's blood work showed chronic elevated LFTs but were otherwise unremarkable. Patient's urine showed no acute process. I explained my physical exam findings as well as all test results to the patient. I answered all questions asked by the patient. I stressed the importance of the patient taking her medication as prescribed. I stressed the importance of the patient following up with her primary care provider. I stressed the importance of the patient returning to the emergency department immediately if her symptoms were to worsen or if she were to develop any dizziness, shortness of breath, difficulty breathing, chest pain, blurry vision, loss of vision, nausea, vomiting, abdominal pain, fever, chills, back pain, or any other complaints. Patient verbalized agreement and understanding with this treatment plan and discharge. Differential Diagnosis Differential Diagnoses: The differential diagnosis associated with the presentation includes Dehydration Kidney failure Kidney disease Admission/Observation Consideration of admission/observation: Escalation of care including admission/observation considered Patient would have been admitted to the hospital had her work up had any findings where hospital admission was appropriate and her clinical presentation warranted hospital admission. Lab Data [facility] Lab Attestation statement: I reviewed the patient's lab results. My interpretation of these results are in the [facility] Rationale portion of this note. 01/11/24 18:36 01/11/24 18:36 Labs: Lab Results 01/11/24 Range/Units 18:36 WBC 11.9 H (4.8-10.8) X10*3/uL RBC 5.26 (4.20-5.50) X10*6/uL Hgb 13.5 (12.0-16.0) g/dl Hct 41.0 (37.0-47.0) % MCV 77.9 L (80.0-98.0) fL MCH 25.7 L (27.0-33.0) pg MCHC 32.9 (31.0-35.0) g/dl RDW 13.8 (11.0-16.0) % Plt Count 282 (160-400) X10*3/uL MPV 9.4 (9.4-12.3) fL Immature Gran % (Auto) 0.3 (0.0-0.4) % Neut % (Auto) 62.4 (45-73) % Lymph % (Auto) 27.2 (20-40) % Tate % (Auto) 5.7 (2-11) % Eos % (Auto) 3.8 (0-4) % Baso % (Auto) 0.6 (0-2) % Lymph # (Auto) 3.3 (1.2-4.9) X10*3/uL Tate # (Auto) 0.7 (0.1-1.2) X10*3/uL Eos # (Auto) 0.5 H (0.0-0.4) X10*3/uL Baso # (Auto) 0.1 (0.0-0.2) X10*3/uL Abs Immat Gran (auto) 0.04 H (0.00-0.03) X10*3/uL Absolute Neuts (auto) 7.4 (2.0-8.3) x10*3/uL Absolute Nucleated RBC 0.000 (0.0-0.012) X10*3/uL Nucleated RBC % (auto) 0.0 (0.0-0.2) /100WBC Sodium 138 (135-145) mmol/L Potassium 3.6 (3.3-5.1) mmol/L Chloride 103 (96-108) mmol/L Carbon Dioxide 24 (22-29) mmol/L Anion Gap 15 (12-20) BUN 15 (9-16) mg/dL Creatinine 0.77 (0.5-1.4) mg/dL Estim Creat Clear Calc 113.2 Estimated GFR > 60 Random Glucose 114 (60-115) mg/dL Calcium 9.9 D (8.4-10.2) mg/dL Total Bilirubin 0.4 (0.0-1.0) mg/dL AST 79 H (5-31) U/L ALT 120 H (0-31) U/L Alkaline Phosphatase 65 (39-117) U/L Total Protein 7.7 (6.5-8.0) g/dL Albumin 4.5 (3.5-5.0) g/dL Beta HCG, Quant < 2 mIU/mL Urine Color Yellow Urine Appearance Clear Urine pH 5.5 (5.0-9.0) Ur Specific Hickman 1.010 (1.005-1.025) Urine Protein Negative (Neg-Trace) mg/dL Urine Glucose (UA) Negative (Negative) mg/dL Urine Ketones Negative (Negative) mg/dL Urine Blood Small (1+) H (Negative) Urine Nitrite Negative (Negative) Ur Leukocyte Esterase Negative (Negative) Urine RBC 0-2 (0-2) /HPF Urine WBC 0-5 (0-5) /HPF Ur Squamous Epith Cells 0-2 (0-2) /HPF Urine Bacteria None Seen (None Seen) Hyaline Casts 0-2 (0-2) /LPF Discharge Plan Discharge Clinical Impression: Dark urine Patient Disposition: Home, Self-Care Instructions: Normal Exam (ED) Additional Instructions: Your labs and urine were normal. Follow up with your primary care provider. Return to the emergency department immediately if your symptoms worsen or if you develop any dizziness, shortness of breath, difficulty breathing, chest pain, blurry vision, loss of vision, nausea, vomiting, abdominal pain, fever, chills, back pain, or any other complaints. Prescriptions: No Action benzonatate [Tessalon Perles] 100 mg capsule 100 mg PO TID PRN (Reason: cough) Qty: 10 0RF cyclobenzaprine 10 mg tablet 10 mg PO TID PRN (Reason: muscle spasm) Qty: 10 0RF ibuprofen 600 mg tablet 600 mg PO Q8H PRN (Reason: pain) Qty: 15 0RF naproxen 500 mg tablet 500 mg PO BID 7 Days Qty: 14 0RF Rx Instructions: Do NOT start until 02/02/2022 doxycycline monohydrate 100 mg tablet 100 mg PO BID 10 Days Qty: 20 0RF ibuprofen 800 mg tablet 800 mg PO Q8H PRN (Reason: pain) Qty: 14 0RF oxycodone 5 mg tablet 5 mg PO Q6H PRN (Reason: pain) Qty: 10 0RF Rx Instructions: Partial Fill upon patient request. Afrin (oxymetazoline) 0.05 % mist 2 spray intranasal Q12H PRN (Reason: nasal congestion) 3 Days Qty: 15 0RF Zyrtec 10 mg capsule 10 mg PO DAILY Qty: 10 0RF Flovent HFA 110 mcg/actuation HFA aerosol inhaler 2 puff inhalation BID duloxetine 20 mg capsule,delayed release(DR/EC) 20 mg PO DAILY albuterol sulfate [ProAir HFA] 90 mcg/actuation HFA aerosol inhaler 0 mcg inhalation famotidine [Pepcid] 40 mg tablet 40 mg PO BEDTIME Qty: 30 6RF ergocalciferol (vitamin D2) 1,250 mcg (50,000 unit) capsule 1,250 mcg PO QWEEK fluticasone propionate 50 mcg/actuation spray,suspension 1 - 2 spray intranasal DAILY PRN Referrals: Betsy Naqvi MD [Primary Care Provider] - Stand Alone Forms: Work/School Release Interventions: ED Discharge Assessment Last Done: 01/11/24 19:38 Discharge Date/Time: 01/11/24 19:38 Print Language: Iraqi
[2024-01-11 18:41] LABS: MANUAL DIFF FLAG NO
[2024-01-11 18:43] LABS: Appearance Urine Clear; Color Urine Yellow; Glucose Urine UA Negative (Negative); Leukocyte Esterase Urine Negative (Negative); Nitrite Urine Negative (Negative); PH 5.5 (5.0-9.0); UMIC TRIGGER UACC YES; Urine Blood Small (1+) (Negative); Urine Ketones Negative (Negative); Urine Protein Negative (Neg-Trace)
[2024-01-11 18:49] LABS: Basophils Absolute Auto 0.1 X10*3/uL (0.0-0.2); Basophils Percent Auto 0.6 % (0-2); Eosinophils Absolute Auto 0.5 X10*3/uL (0.0-0.4); Eosinophils Percent Auto 3.8 % (0-4); Hemoglobin 13.5 g/dl (12.0-16.0); Imm Gran Abs Auto 0.04 X10*3/uL (0.00-0.03); Imm Gran Pct Auto 0.3 % (0.0-0.4); Lymphocytes Absolute Auto 3.3 X10*3/uL (1.2-4.9); Lymphocytes Percent Auto 27.2 % (20-40); Mean Corpuscular HGB Conc 32.9 g/dl (31.0-35.0); Mean Corpuscular Hemoglobin 25.7 pg (27.0-33.0); Mean Corpuscular Volume 77.9 fL (80.0-98.0); Mean Platelet Volume 9.4 fL (9.4-12.3); Monocytes Absolute Auto 0.7 X10*3/uL (0.1-1.2); Monocytes Percent Auto 5.7 % (2-11); Neutrophils Absolute Auto 7.4 x10*3/uL (2.0-8.3); Neutrophils Percent Auto 62.4 % (45-73); Platelet Count 282 X10*3/uL (160-400); Red Blood Count 5.26 X10*6/uL (4.20-5.50); Red Cell Distribution Width 13.8 % (11.0-16.0); White Blood Count 11.9 X10*3/uL (4.8-10.8)
[2024-01-11 18:50] LABS: Bacteria Urine None Seen (None Seen); Hyaline Casts Urine 0-2 /LPF (0-2); RBC Urine 0-2 /HPF (0-2); Squamous Epithelial Cell Urine 0-2 /HPF (0-2); WBC Urine 0-5 /HPF (0-5)
[2024-01-11 19:15] LABS: Alanine Aminotransferase 120 U/L (0-31); Albumin Level 4.5 g/dL (3.5-5.0); Alkaline Phosphatase 65 U/L (39-117); Anion Gap 15 (12-20); Aspartate Amino Transferase 79 U/L (5-31); Bilirubin Total 0.4 mg/dL (0.0-1.0); Blood Urea Nitrogen 15 mg/dL (9-16); Calcium 9.9 mg/dL (8.4-10.2); Carbon Dioxide 24 mmol/L (22-29); Chloride 103 mmol/L (96-108); Creatinine Clr Calc Pharmacy 113.2; Estimated Glomerular Filt Rate > 60; Glucose Random 114 mg/dL (60-115); HCG Quantitative < 2 mIU/mL; Potassium 3.6 mmol/L (3.3-5.1); Sodium 138 mmol/L (135-145); Total Protein 7.7 g/dL (6.5-8.0)
[2024-01-11 19:38] VITALS: BP 126/52; PULSE 84; RESP 16; TEMP 36.7; O2SAT 96
== END 2024-01-11 19:38 | disposition home or self-care (01) ==
PROVIDERS: Physician Assistant Medical; Emergency Provider Emergency Medicine; PCP Pediatrics
DX: R82.90 Unspecified abnormal findings in urine (principal); Z79.899 Other long term (current) drug therapy
CPT/HCPCS: 36415; 80053; 81001; 84702; 85025; 99282; 99283

== ENCOUNTER 2024-08-21 11:45 | Outpatient (REF) | payer MEDICAID, SELFPAY ==
--- OUTSIDE RECORDS SUMMARY | 2024-08-21 15:39 | XMS_ITS | Encounter Summary ---
Author Organization [employer] Address [address] [place] [address] Care Team Providers Care Franchise Consultant Name Role Phone Betsy Naqvi MD Primary Care Provider [phone] Reason for Visit * Reason Onset Date Comments Chart Prep 08/20/2024 Encounter Details Date Type Department Care Team ([facility] Contact Info) Description 08/20/2024 Telephone [facility] MED & PEDS [address] [place] [address] Betsy Naqvi MD [address] [place] [address] Chart Prep Social History Tobacco Use Types Packs/Day Years Used Date Smoking Tobacco: Never Passive Smoke Exposure: Never Smokeless Tobacco: Never Depression Answer Date Recorded Patient Health Questionnaire-9 Score 0 03/13/2023 Housing Stability Answer Date Recorded What is your housing situation today? I have esha alarcon 05/21/[address] you li ve. Do you have problems with any of the following? None of the above 05/21/2023 Food Insecurity Answer Date Recorded Within the past 12 months, y ou worried that your food would run out before you got money to buy more: Never True 05/21/2023 Within the past 12 months,th e food you bought just didn't last and you didn't have enough money to get more: Never True Transportation Answer Date Recorded In the past 12 months, has l ack of transportation kept you from medical appts, meetings, work or from getting things needed for daily living? No 05/21/2023 Utilities Answer Date Recorded In the past 12 months, has t he electric, gas, oil or water company threatened to shut off services in your home? No 05/21/2023 Depression Answer Date Recorded Patient Health Questionnaire-2 Score 0 03/13/2023 Comments No Sex and Gender Information Value Date Recorded Sex Assigned at Female 05/22/2022 10:32 AM EDT Legal Sex Female 10:32 AM EDT Gender Identity Female 12/21/2023 3:24 PM EDT Sexual Orientation Straight 12/21/2023 3: 24 PM EDT documented as of this encounter Miscellaneous Notes * Telephone Encounter - Sera Palomino [place] - 08/20/2024 11:56 AM EST Chart Prep Labs: done Images: done Vaccines due: yes Referrals: complete Screenings: STI screening Overdue care gaps: SDOH, PHQ-9, PISQ documented in this encounter Plan of Treatment Upcoming Encounters Date Type Department Care Team (Late st Contact Info) Description 10/03/2024 9:30 AM EDT Clinical Support [facility] MED & PEDS [address] [place] [address] documented as of this encounter Visit Diagnoses Not on filedocumented in this encounter Additional Health Concerns Assessment Noted Time PHQ-9 Depression Total Score: 0 03/13/20 23 9:01 AM EDT documented as of this encounter Care Teams Franchise Consultant Relationship Specialty Start Date End Date Betsy Naqvi MD [address] [place] [address] PCP - General Family Medicine 09/11/18 documented as of this encounter
--- OUTSIDE RECORDS SUMMARY | 2024-08-21 15:39 | XMS_ITS | Encounter Summary ---
Author Organization [employer] Address [address] [facility] [address] [place] [address] Care Team Providers Care Dobie Man Name Role Phone Betsy Naqvi MD Primary Care Provider [phone] Encounter Details Date Type Department Care Team (Late st Contact Info) Description 08/06/2024 Orders Only [facility] [address] [place], [place] [phone] Provider, MD Lv Social History Tobacco Use Types Packs/Day Years [...] PM EDT documented as of this encounter Plan of Treatment Upcoming Encounters Date Type Department Care Team (Late st Contact Info) Description 10/03/2024 9:30 AM EDT Clinical Support [facility] MED & PEDS [address] [place] [address] documented as of this encounter Procedures Procedure Name Priority Date/Time Associated Diagnosis Comments BASIC METABOLIC PANEL Routine 08/06/2024 3:11 PM EST documented in this encounter Results * Basic Metabolic Panel (08/06/2024 3:11 PM EST) Blood Venous blood specimen / Unknown us Historical Provider LAB BLOOD ORDERABLES Lorna l Result documented in this encounter Visit Diagnoses Not on filedocumented in this encounter Additional Health Concerns Assessment Noted Time PHQ-9 Depression Total Score: 0 03/13/20 23 9:01 AM EDT documented as of this encounter Care Teams Dobie Man Relationship Specialty Start Date End Date Betsy Naqvi MD [address] [place] [address] PCP - General Family Medicine 09/11/18 documented as of this encounter
--- OUTSIDE RECORDS SUMMARY | 2024-08-21 15:39 | XMS_ITS | Encounter Summary ---
Author Organization [employer] Address [address] [place] [address] [address] [place] [address] Care Team Providers Care Boomswing Operator Name Role Phone Betsy Naqvi MD Primary Care Provider [phone] Encounter Details Date Type Department Care Team (Late st Contact Info) Description 02/14/2024 Orders Only [facility] [address] [place], [place] [phone] Provider, MD Lv Social History Tobacco Use Types Packs/Day Years Used Date Smoking Tobacco: Never Smokeless Tobacco: Never Depression Answer Date [...] Description 10/03/2024 9:30 AM EDT Clinical Support [facility] MED & PEDS [address] [place] [address] documented as of this encounter Procedures Procedure Name Priority Date/Time Associated Diagnosis Comments HELICOBACTER PYLORI, UREA BREATH TEST Routine 02/13/2024 3:49 PM EDT documented in this encounter Results * Helicobacter pylori, Urea Breath Test (02/13/2024 3:49 PM EDT) Breath Oral cavity structure / Unknown us Historical Provider LAB BLOOD ORDERABLES Lorna l Result documented in this encounter Visit Diagnoses Not on filedocumented in this encounter Additional Health Concerns Assessment Noted Time PHQ-9 Depression Total Score: 0 03/13/20 23 9:01 AM EDT documented as of this encounter Care Teams Boomswing Operator Relationship Specialty Start Date End Date Betsy Naqvi MD [address] [place] [address] PCP - General Family Medicine 09/11/18 documented as of this encounter
--- OUTSIDE RECORDS SUMMARY | 2024-08-21 15:39 | XMS_ITS | Encounter Summary ---
Author Organization [employer] Address [address] [place] [address] Care Team Providers Care Anesthesiologist Assistant Name Role Phone Betsy Naqvi MD Primary Care Provider [phone] Encounter Details Date Type Department Care Team (Latest Contact Info) Description 08/21/2024 Travel Social History Tobacco Use Types Packs/Day Years Used Date Smoking Tobacco: Never Passive Smoke Exposure: Never Smokeless Tobacco: Never Depression Answer Date Recorded Patient Health Questionnaire-9 Score 0 03/13/2023 Housing Stability Answer Date Recorded What is your housing situation today? I have esah dorian 05/21/[address] you li [...] Description 10/03/2024 9:30 AM EDT Clinical Support [facility] MED & PEDS [address] [place] [address] documented as of this encounter Visit Diagnoses Not on filedocumented in this encounter Additional Health Concerns Assessment Noted Time PHQ-9 Depression Total Score: 0 03/13/20 23 9:01 AM EDT documented as of this encounter Care Teams Anesthesiologist Assistant Relationship Specialty Start Date End Date Betsy Naqvi MD [address] [place] [address] PCP - General Family Medicine 09/11/18 documented as of this encounter
--- OUTSIDE RECORDS SUMMARY | 2024-08-21 15:39 | XMS_ITS | Encounter Summary ---
Author Organization [employer] Address [address] [facility] [address] [place] [address] Care Team Providers Care Chef Concierge Name Role Phone Betsy Naqvi MD Primary Care Provider [phone] Encounter Details Date Type Department Care Team (Late st Contact Info) Description 08/07/2024 Orders Only [facility] MED & PEDS [address] [place] [address] Provider, MD Lv Social History Tobacco Use [...] Upcoming Encounters Date Type Department Care Team ([facility] st Contact Info) Description 10/03/2024 9:30 AM EDT Clinical Support [facility] MED & PEDS [address] [place] [address] documented as of this encounter Procedures Procedure Name Priority Date/Time Associated Diagnosis Comments SURGICAL PATHOLOGY Routine 08/05/2024 11:23 AM EST documented in this encounter Results * Surgical Pathology (08/05/2024 11:23 AM EST) us Historical Provider LAB PATHOLOGY ORDERABLES Final Result documented in this encounter Visit Diagnoses Not on filedocumented in this encounter Additional Health Concerns Assessment Noted Time PHQ-9 Depression Total Score: 0 03/13/20 23 9:01 AM EDT documented as of this encounter Care Teams Chef Concierge Relationship Specialty Start Date End Date Betsy Naqvi MD [address] [place] [address] PCP - General Family Medicine 09/11/18 documented as of this encounter
--- OUTSIDE RECORDS SUMMARY | 2024-08-21 15:39 | XMS_ITS | Encounter Summary ---
Author Organization [employer] Address [address] [facility] [address], [place] [address] Care Team Providers Care Poultry Pinner Name Role Phone Betsy Naqvi MD Primary Care Provider [phone] Reason for Visit * Reason Onset Date Comments Paperwork/Forms 01/16/2024 Encounter Details Date Type Department Care Team ([facility] st Contact Info) Description 01/16/2024 Telephone [facility] MEDICINE [address] [place] [address] Betsy Naqvi MD [address] [facility] [place], [place] [phone] Paperwork/Forms Social History Tobacco Use Types Packs/Day Years Used Date Smoking Tobacco: Never Smokeless Tobacco: Never Depression Answer Date Recorded Patient Health Questionnaire-9 Score 0 03/13/2023 Housing Stability Answer Date Recorded What is your housing situation today? I have eshaloyda alarcon 05/21/[address] you [...] encounter Miscellaneous Notes * Telephone Encounter - Domenico Hallman - 01/16/2024 11:59 AM EDT Tc from patient calling states had given a paper to the provider to fill out for Bariatrics documented in this encounter Plan of Treatment Upcoming Encounters Date Type Department Care Team ([facility] st Contact Info) Description 10/03/2024 9:30 AM EDT Clinical Support [facility] MED & PEDS [address] [place] [address] documented as of this encounter Visit Diagnoses Not on filedocumented in this encounter Additional Health Concerns Assessment Noted Time PHQ-9 Depression Total Score: 0 03/13/20 23 9:01 AM EDT documented as of this encounter Care Teams Poultry Pinner Relationship Specialty Start Date End Date Betsy Naqvi MD [address] [place] [address] PCP - General Family Medicine 09/11/18 documented as of this encounter
--- OUTSIDE RECORDS SUMMARY | 2024-08-21 15:39 | XMS_ITS | Encounter Summary ---
Author Organization [email or web address] Address [address] [facility] 7t [place] [address] Care Team Providers Care Java Technical Architect Name Role Phone Betsy Naqvi MD Primary Care Provider [phone] Encounter Details Date Type Department Care Team (Late st Contact Info) Description 02/13/2024 Orders Only [facility] [address] [place], [place] [phone] Provider, MD Lv Social History Tobacco Use [...] 9:30 AM EDT Clinical Support [facility] MED & PEDS [address] [place] [address] documented as of this encounter Procedures Procedure Name Priority Date/Time Associated Diagnosis Comments VITAMIN D 1,25 DIHYDROXY Routine 02/13/2024 3:52 PM EDT documented in this encounter Results * Vitamin D 1,25 dihydroxy (02/13/2024 3:52 PM EDT) Blood Venous blood specimen / Unknown us Historical Provider LAB BLOOD ORDERABLES Lorna l Result documented in this encounter Visit Diagnoses Not on filedocumented in this encounter Additional Health Concerns Assessment Noted Time PHQ-9 Depression Total Score: 0 03/13/20 23 9:01 AM EDT documented as of this encounter Care Teams Java Technical Architect Relationship Specialty Start Date End Date Betsy Naqvi MD [address] [place] [address] PCP - General Family Medicine 09/11/18 documented as of this encounter
--- OUTSIDE RECORDS SUMMARY | 2024-08-21 15:39 | XMS_ITS | Encounter Summary ---
Author Organization [employer] Address [address] [facility] 7t [place] [address] Care Team Providers Care Water Engineer Name Role Phone Betsy Naqvi MD Primary Care Provider [phone] Encounter Details Date Type Department Care Team (Late st Contact Info) Description 2023 Orders Only [facility] MED & PEDS [address] [place] [address] Provider, MD Lv Social History Tobacco Use [...] Description 10/03/2024 9:30 AM EDT Clinical Support [facility] MED & PEDS [address] [place] [address] documented as of this encounter Procedures Procedure Name Priority Date/Time Associated Diagnosis Comments VITAMIN B1 Routine 12/24/2023 12:38 PM EDT documented in this encounter Results * Vitamin B1 (12/24/2023 12:38 PM EDT) Blood Venous blood specimen / Unknown us Historical Provider LAB BLOOD ORDERABLES Lorna l Result documented in this encounter Visit Diagnoses Not on filedocumented in this encounter Additional Health Concerns Assessment Noted Time PHQ-9 Depression Total Score: 0 03/13/20 23 9:01 AM EDT documented as of this encounter Care Teams Water Engineer Relationship Specialty Start Date End Date Betsy Naqvi MD [address] [place] [address] PCP - General Family Medicine 09/11/18 documented as of this encounter
--- OUTSIDE RECORDS SUMMARY | 2024-08-21 15:39 | XMS_ITS | Encounter Summary ---
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); Encounter for immunization; Primary hypertension Social History Tobacco Use Types Packs/Day Years [...] PM EDT documented as of this encounter Last Filed Vital Signs Vital Sign Reading Time Taken Comments Blood Pressure 97/68 08/21/2024 11:26 AM EST Pulse 88 08/21/2024 11:26 AM EST Temperature 36.7 ??C (98.1 ??F) 08/21/2024 11:[address] Respiratory Rate 20 08/21/2024 11:26 AM EST Oxygen Saturation 98% 08/21/2024 11:26 AM EST Inhaled Oxygen Concentration - - Weight 81.2 kg (179 lb) 08/21/2024 11:26 AM EST Height 162.6 cm (5' 4 ) 08/21/2024 11:26 AM EST Body Mass Index 30.73 08/21/2024 11:26 AM EST documented in this encounter Progress Notes * Betsy Naqvi MD - 08/21/2024 11:30 AM EST Subjective Patient ID: Mary Baldwin is a 38 y.o. female who presents for follow up s/p GI bypass. Mary is a 38-year-old female patient of [facility] with history of hypothyroidism obesity and hypertension here for follow-up after she had a gastric sleeve procedure done on August 05 of this year. Feels overall well. BP running low since surgeon switched her hydrochlorothiazide to losartan 25 mg daily. She denies nausea or vomiting. Has been trying to eat as instructed. Has lost about 30 pounds she has started dieting to get the surgery etc. History provided by: Patient certified court/medical interpreter used: No Review of Systems Constitutional: Negative for activity change, chills, fever and unexpected weight change. Respiratory: Negative for cough, shortness of breath and wheezing. Cardiovascular: Negative for chest pain, palpitations and leg swelling. Gastrointestinal: Negative for abdominal pain and blood in stool. Endocrine: Negative for polydipsia and polyuria. Genitourinary: Negative for decreased urine volume, difficulty urinating, dysuria and hematuria. Musculoskeletal: Negative for arthralgias and gait problem. Skin: Negative for color change and rash. Neurological: Negative for dizziness and headaches. Hematological: Negative for adenopathy. Psychiatric/Behavioral: Negative for dysphoric mood, hallucinations, sleep disturbance and suicidalideas. The patient is not nervous/anxious. Objective BP 97/68 (BP Location: Left arm, Patient Position: Sitting, BP Cuff Size: Adult) Pulse 88 Temp 98.1 ??F (36.7 ??C) (Oral) Resp 20 Ht 5' 4 (1.626 m) Wt 179 lb (81.2 kg) SpO2 98% BMI 30.73 kg/m?? Physical Exam Vitals reviewed. Constitutional: Appearance: Normal appearance. She is not ill-appearing. Cardiovascular: Rate and Rhythm: Normal rate and regular rhythm. Heart sounds: Normal heart sounds. No murmur heard. Pulmonary: Effort: Pulmonary effort is normal. Breath sounds: Normal breath sounds. Skin: Capillary Refill: Capillary refill takes less than 2 seconds. Neurological: Mental Status: She is oriented to person, place, and time. 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 Complains of chronic constipation despite use of Colace twice daily and drinking water. Trial of Metamucil or increased fiber in diet with patient. Can also ask if she can use MiraLAX as she is seen next week by them. Orders: - TSH W/Reflex to FT4; Future Encounter for immunization Comments: Flu vaccine received today without complication Orders: - FLU VACCINE TRIVALENT (Fluarix) 6 mo + Primary hypertension Comments: BP running low today. States her GI gastric bypass surgeon switched her from HCTZ to losartan 25 mgdaily due to her BP being extremely elevated after operation. Agrees to return to clinic in 6 weekswith a BP log that she will check at home with home BP monitor. If blood pressure is running below 120/70 overall we will reduce dose of losartan to half. Continue low-salt diet and efforts to eat healthy and start exercising once cleared by surgeon. 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 documented in this encounter Results * (ABNORMAL) TSH W/Reflex to FT4 (08/21/2024 11:46 AM EST) TSH reflex Free T4 0.10(L) 0.32 - 4.0 uIU/mL [facility] Blood Venous blood specimen / Unknown 08/21/2024 11:46 AM EST 08/21/2024 2:01 PM EST us Betsy Naqvi MD LAB BLOOD ORDERABLES Final Re sult [facility] [address] [place] [address] [phone] documented in this encounter Visit Diagnoses Diagnosis 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
--- OUTSIDE RECORDS SUMMARY | 2024-08-21 15:39 | XMS_ITS | Encounter Summary ---
Author Organization [employer] Address [address] [facility] [address] [place] [address] Care Team Providers Care Foam Caster Name Role Phone Betsy Naqvi MD Primary Care Provider [phone] Encounter Details Date Type Department Care Team (Late st Contact Info) Description 12/28/2023 Orders Only [facility] [address] [place], [place] [phone] Provider, MD Lv Social History Tobacco Use [...] Description 10/03/2024 9:30 AM EDT Clinical Support [facility] MED & PEDS [address] [place] [address] documented as of this encounter Procedures Procedure Name Priority Date/Time Associated Diagnosis Comments ZINC Routine 12/24/2023 3:19 PM EDT documented in this encounter Results * Zinc (12/24/2023 3:19 PM EDT) Blood Venous blood specimen / Unknown us Historical Provider LAB BLOOD ORDERABLES Lorna l Result documented in this encounter Visit Diagnoses Not on filedocumented in this encounter Additional Health Concerns Assessment Noted Time PHQ-9 Depression Total Score: 0 03/13/20 23 9:01 AM EDT documented as of this encounter Care Teams Foam Caster Relationship Specialty Start Date End Date Betsy Naqvi MD [address] [place] [address] PCP - General Family Medicine 09/11/18 documented as of this encounter
--- OUTSIDE RECORDS SUMMARY | 2024-08-21 15:39 | XMS_ITS | Encounter Summary ---
Author Organization [employer] Address [address] [facility] [address] [place] [address] Care Team Providers Care Pain Management Nurse Name Role Phone Betsy Naqvi MD Primary Care Provider [phone] Encounter Details Date Type Department Care Team (Late st Contact Info) Description 08/05/2024 Orders Only [facility] MED & PEDS [address] [place] [address] Provider, MD Lv Social History Tobacco Use [...] 9:30 AM EDT Clinical Support [facility] MED & PEDS [address] [place] [address] documented as of this encounter Procedures Procedure Name Priority Date/Time Associated Diagnosis Comments ABO GROUP AND RH TYPE Routine 08/05/2024 10:43 AM EST MRSA CULTURE SCREEN Routine 08/05/2024 10:21 AM EST ABO GROUP Routine 08/04/2024 3:22 PM EST ANTIBODY SCREEN Routine 08/04/2024 3:22 PM EST ALBUMIN Routine 08/04/2024 3:14 PM EST BASIC METABOLIC PANEL Routine 08/04/2024 3:14 PM EST URINALYSIS, COMPLETE, WITH REFLEX TO CULTURE Routine 08/04/2024 3:06 PM EST AMB HCG URINE TEST Routine 08/04/2024 3:03 PM EST documented in this encounter Results * ABO Group And RH Type (08/05/2024 10:43 AM EST) Blood Venous blood specimen / Unknown Historical Provider LAB BLOOD BANK TEST ORDER SUSANA Final Result * MRSA Culture Screen (08/05/2024 10:21 AM EST) Swab Nasopharyngeal structure / Unknown Historical Provider LAB MICROBIOLOGY - GENERA L ORDERABLES Final Result * ABO Group (08/04/2024 3:22 PM EST) us Historical Provider LAB BLOOD BANK TEST ORDER SUSANA Final Result * Antibody screen (08/04/2024 3:22 PM EST) Blood Venous blood specimen / Unknown [facility] Provider MD LAB BLOOD ORDERABLES Lorna l Result * Basic Metabolic Panel (08/04/2024 3:14 PM EST) Blood Venous blood specimen / Unknown Result [facility] Provider MD LAB BLOOD ORDERABLES Lorna l Result * Albumin (08/04/2024 3:14 PM EST) Blood Venous blood specimen / Unknown Result [facility] Provider MD LAB BLOOD ORDERABLES Lorna l Result * Urinalysis, Complete, with Reflex to Culture (08/04/2024 3:06 PM EST) Urine Result [facility] Provider LAB URINE ORDERABLES Lorna l Result * AMB HCG URINE TEST (08/04/2024 3:03 PM EST) Result [facility] Provider MD LAB BLOOD ORDERABLES Lorna l Result documented in this encounter Visit Diagnoses Not on filedocumented in this encounter Additional Health Concerns Assessment Noted Time PHQ-9 Depression Total Score: 0 03/13/20 23 9:01 AM EDT documented as of this encounter Care Teams Pain Management Nurse Relationship Specialty Start Date End Date Betsy Naqvi MD [address] [place] [phone] PCP - General Family Medicine 09/11/18 documented as of this encounter
--- OUTSIDE RECORDS SUMMARY | 2024-08-21 15:39 | XMS_ITS | Encounter Summary ---
Author Organization [employer] Address [address] [facility] 7t [place] [address] Care Team Providers Care Financial Analyst Accountant Name Role Phone Betsy Naqvi MD Primary Care Provider [phone] Encounter Details Date Type Department Care Team (Late st Contact Info) Description 08/04/2024 Orders Only [facility] & PEDS [address] [place] [address] Provider, MD Lv Social History Tobacco Use [...] Upcoming Encounters Date Type Department Care Team ([facility] st Contact Info) Description 10/03/2024 9:30 AM EDT Clinical Support [facility] & PEDS [address] [place] [address] documented as of this encounter Procedures Procedure Name Priority Date/Time Associated Diagnosis Comments PROTHROMBIN TIME (PT)/PARTIAL THROMBOPLASTIN TIME PTT Routine 08/04/2024 11:08 AM EST ~PT, ~INR - ANTI COAG CLINIC Routine 08/04/2024 11:08 AM EST CBC Routine 08/04/2024 11:08 AM EST documented in this encounter Results * CBC (08/04/2024 11:08 AM EST) Blood Venous blood specimen / Unknown [facility] Provider MD LAB BLOOD ORDERABLES Lorna l Result * ~PT, ~INR - ANTI COAG CLINIC (08/04/2024 11:08 AM EST) [facility] Provider MD LAB BLOOD ORDERABLES Lorna l Result * Prothrombin Time (PT) and Partial Thromboplastin Time (PTT) (08/04/2024 11:08 AM EST) Blood Venous blood specimen / Unknown Historical Provider MD LAB BLOOD ORDERABLES Lorna l Result documented in this encounter Visit Diagnoses Not on filedocumented in this encounter Additional Health Concerns Assessment Noted Time PHQ-9 Depression Total Score: 0 03/13/20 23 9:01 AM EDT documented as of this encounter Care Teams Financial Analyst Accountant Relationship Specialty Start Date End Date Betsy Naqvi MD [address] [place] [address] PCP - General Family Medicine 09/11/18 documented as of this encounter
--- OUTSIDE RECORDS SUMMARY | 2024-08-21 15:40 | XMS_ITS | Clinical Summary ---
Author Organization [facility] Address [address] [place] [address] 7t [place] [address] Care Team Providers Care Mental Health Director Name Role Phone Betsy Naqvi MD Primary Care Provider [phone] Allergies Active Allergy Reactions Criticality Noted Date Comments Shellfish-Derived Products 9 Medications albuterol 108 (90 Base) MCG/ACT inhalerIndications :COVID-19,Long COVID Inhale 2 puffs every 4 (four) hours if needed for wheezing or shortness of breath. 18 g 1 2 Active Diclofenac Sodium 1 % gelIndications:Chr onic ankle pain, unspecified laterality Apply 2 g topically if needed in the morning, at noon, and at bedtime (pain). 100 g 3 2 Active fexofenadine (Avelina) 180 MG tablet Take 1 tablet (180 mg) by mouth in the morning. 30 tablet 11 3 Active Blood Pressure kit Check BP 1-2 times per day 1 kit 3 Active ibuprofen 800 MG tabletIndications: Viral syndrome Take 1 tab orally tid prn 60 tablet 2 4 Active Beclomethasone Diprop HFA (Qvar) 80 MCG/ACT inhaler Inhale 1 Inhalation. in the morning and at bedtime. 10.6 g 11 4 Active hydroCHLOROthiazid e (HYDRODiuril) 25 MG tablet Take 1 tablet (25 mg) by mouth Once per day. 30 tablet 11 4 025 Active EPINEPHrine (Epipen) 0.3 MG/0.3ML injection syringeIndications :Allergy history, seafood Inject 0.3 mL (0.3 mg) as directed 1 (one) time for 1 dose. 0.3 mL 4 Active acetaminophen (Tylenol) 500 MG tablet Take 2 tablets (1,000 mg) by mouth every 6 (six) hours if needed for moderate pain or fever for up to 25 doses. 50 tablet 4 Active tiZANidine (Zanaflex) 2 MG tablet Take 1 tablet (2 mg) by mouth every 6 (six) hours if needed for muscle spasms for up to 10 days. 30 tablet 4 Active Docusate Sodium (DSS) 100 MG capsule Take 100 mg by mouth 2 times daily. 5 Active famotidine (Pepcid) 20 MG tablet Take 20 mg by mouth 2 times daily. 5 Active fluticasone (Flonase Allergy Relief) 50 MCG/ACT nasal spray Administer 1-2 sprays into affected nostril(s) at bed time. 2 Active losartan (Cozaar) 25 MG tablet Take 25 mg by mouth Once per day. 5 Active ondansetron ODT (Zofran-ODT) 4 MG disintegrating tablet Take 1 tablet by mouth every 8 (eight) hours if needed for nausea. 5 Active thiamine (Vitamin B-1) 50 MG tablet Take 50 mg by mouth Once per day. 5 Active Active Problems Problem Noted Date Diagnosed Date Allergic rhinitis 08/21/2024 Bariatric surgery status 08/05/2024 Class 2 severe obesity due t o excess calories with serious comorbidity and body mass index (BMI) of 36.0 to 36.9 in adult 12/18/2023 Overview (12/19/2023): Last Assessment & Plan: This is a 37 YO patient who is interested in weight loss surgery, specifically the laparoscopic sleeve gastrectomy for weight loss. We have discussed gastric bypass and sleeve gastrectomy surgery in detail including risks, benefits, and alternatives. We have also discussed requirements preop and post op. They understands that they are required to lose about 10 percent of their current weight which is 21 lbs. The goal weight at the time of submission to the insurance company will be 189 pounds. In an effort to help the patient to lose weight I have prescribed an eating plan which will consist of a protein shake or a protein bar or Guinean yogurt or cottage cheese to be consumed at 9 AM and 3 PM daily. The patient will consume 4 ounces of protein with 6 ounces of vegetable or small salad with a noncreamy salad dressing of not more than 2 tablespoons at 12 PM and 6 PM daily. At the 6 PM meal the patient may have 1/2 cup of carbohydrate. We have ordered required labs and testing. The patient will attend 5 nutrition classes, 2 appointments, and dietitian consultation. The patient will need to obtain a medical clearance letter from the primary care doctor prior to submission to the insurance company. The patient will see the dietitian in 2 and 4 weeks and I will follow up with them again in 6 weeks to ensure compliance with the meal plan. The patient will continue current medications as reviewed. They are not stable and are considered obese. I spent 53 minutes with this patient which also included documentation. 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 09/06/2017 Encounters Date Type Department Care Team Description 08/21/2024 11:30 AM EST Office Visit [facility] [address] [place] [address] Betsy Naqvi MD 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); Encounter for immunization; Primary hypertension 08/21/2024 Travel 08/20/2024 Telephone [facility] [address] [place] [address] Betsy Naqvi MD Chart Prep 08/07/2024 Orders Only [facility] [address] [place] [address] Lv Champagne MD 08/06/2024 Orders Only [facility] [address] [place] [phone] Lv Champagne MD 08/05/2024 Orders Only [facility] [address] [place] [address] ProviderLv MD 08/04/2024 Orders Only [facility] [address] [place] [address] ProviderLv MD 07/08/2024 9:00 AM EST Office Visit [facility] [address] [place], [place] [phone] Tucker Hewitt MD 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, unspecified chronicity (Primary Dx) 07/02/2024 Telephone [facility] [address] [place] [address] Betsy Naqvi MD Med Refill from Last 3 Months Immunizations Name Administration Dates Next Due Influenza injectable quadriv alent IIV4 with preservative 07/25/2017 Influenza injectable quadrivalent preservative f ree 06/03/2021 Influenza, seasonal, injectable, preservative fr ee 08/21/2024 Social History Tobacco Use Types Packs/Day Years Used Date Smoking Tobacco: Never Passive Smoke Exposure: Never Smokeless Tobacco: Never Tobacco Cessation:Counseling Given: Not Answered Depression Answer Date Recorded Patient Health Questionnaire-9 [...] Orientation Straight 12/21/2023 3: 24 PM EDT Last Filed Vital Signs Vital Sign Reading [...] Mass Index 30.73 08/21/2024 11:26 AM EST Plan of Treatment Upcoming Encounters Date Type Department Care Team (Late st Contact Info) Description 10/03/2024 9:30 AM EDT Clinical Support [facility] [address] [place] [address] Health Maintenance Due Date Last Done Comments Alcohol/Substance Use Screening 1999 Family Planning (PISQ) 12/26/2002 DTaP/Tdap/Td Vaccines (1 - Tdap) 12/26/2006 Hepatitis B Vaccines (1 of 3 - 19+ 3-dose series) 12/26/2006 Depression Screening 03/13/2024 03/13/2023, 03/13/20 23 SDOH Screening 03/13/2024 03/13/2023 COVID-19 Vaccine ( season) 2024 Pap Smear 06/03/2024 06/03/2021 Diabetes: Hemoglobin A1C 12/23/2024 024, 12/24/2023, 03/07/2023, Additional history exists Tobacco Screening 08/21/2025 08/21/2024 Cervical Cancer Screening 06/03/2026 HPV/Cotest 06/03/2026 06/03/2021 Lipid Panel 12/23/2028 12/24/2023, 0812/2022, 06/03/2021 Zoster Vaccines (1 of 2) 12/26/2037 RSV Patients and Patients Aged 60 years or older (1 - 1-dose 75+ series) 12/26/2062 Hepatitis C Screening Completed 06/27/2021 HIV Screening Completed 07/28/2021 Influenza Vaccine Completed 08/21/2024, , 07/25/2017 HIB Vaccines Aged Out No longer eligi ble based on patient's age to complete this topic HPV Vaccines Aged Out No longer eligi ble based on patient's age to complete this topic Hepatitis A Vaccines Aged Out No long er eligible based on patient's age to complete this topic IPV Vaccines Aged Out No longer eligi ble based on patient's age to complete this topic Meningococcal Vaccine Aged Out No lakshmi sheryl eligible based on patient's age to complete this topic Pneumococcal Vaccine: Pediatrics (0 to 5 Years) and At-Risk Patients (6 to 49) Years) Aged Out No longer eligible based on patient's age to complete this topic RSV under 20 months Aged Out No longe r eligible based on patient's age to complete this topic Rotavirus Vaccines Aged Out No longer eligible based on patient's age to complete this topic Procedures Procedure Name Priority Date/Time Associated Diagnosis Comments TSH W/REFLEX TO FT4 Routine 08/21/2024 1 1:46 AM EST Hypothyroidism due to thyroiditis BASIC METABOLIC PANEL Routine 08/06/2024 3:11 PM EST SURGICAL PATHOLOGY Routine 08/05/2024 11 :23 AM EST ABO GROUP AND RH TYPE Routine 08/05/2024 10:43 AM EST MRSA CULTURE SCREEN Routine 08/05/2024 1 0:21 AM EST ABO GROUP Routine 08/04/2024 3:22 PM EST ANTIBODY SCREEN Routine 08/04/2024 3:22 PM EST BASIC METABOLIC PANEL Routine 08/04/2024 3:14 PM EST ALBUMIN Routine 08/04/2024 3:14 PM EST URINALYSIS, COMPLETE, WITH REFLEX TO CULTURE Routine 08/04/2024 3:06 PM EST AMB HCG URINE TEST Routine 08/04/2024 3:03 PM EST CBC Routine 08/04/2024 11:08 AM EST ~PT, ~INR - ANTI COAG CLINIC Routine 08/04/2024 11:08 AM EST PROTHROMBIN TIME (PT)/PARTIAL THROMBOPLASTIN TIME PTT Routine 08/04/2024 11:08 AM EST HEMOGLOBIN A1C Routine 12/24/2023 9:16 AM EDT LIPID PANEL, STANDARD (EXTERNAL RESULTS ONLY) Routine 12/24/2023 9:12 AM EDT [facility] HISTORICAL HEPATITIS B PROFILE Routine 07/28/2021 2:59 PM EST [facility] HISTORICAL HEPATITIS C AB W/REFL TO HCV RNA, QN, PCR Routine 06/27/2021 12:35 PM EST THINPREP IMAGING PAP AND HPV MRNA E6/E7 WITH REFLEX TO HPV 16,18/45 Routine 06/03/2021 10:35 AM EST from Last 3 Months or Most Recently Relevant to Health Maintenance Results * (ABNORMAL) TSH W/Reflex to FT4 (08/21/2024 11:46 AM EST) TSH reflex Free T4 0.10(L) 0.32 - 4.0 uIU/mL [facility] Blood Venous blood specimen / Unknown 08/21/2024 11:46 AM EST 08/21/2024 2:01 PM EST Result [facility] Betsy Naqvi MD LAB BLOOD ORDERABLES Final Re sult [facility] [address] [place] [phone] * Basic Metabolic Panel (08/06/2024 3:11 PM EST) Only the most recent of2 resultswithin the time period is included. Blood Venous blood specimen / Unknown Result [facility] Historical Provider LAB BLOOD ORDERABLES Lorna l Result * Surgical Pathology (08/05/2024 11:23 AM EST) Historical Provider MD LAB PATHOLOGY ORDERABLES Final Result * ABO Group And RH Type (08/05/2024 10:43 AM EST) Blood Venous blood specimen / Unknown [facility] MD LAB BLOOD BANK TEST ORDER SUSANA Final Result * MRSA Culture Screen (08/05/2024 10:21 AM EST) Swab Nasopharyngeal structure / Unknown Result [facility] MD LAB MICROBIOLOGY - GENERA L ORDERABLES Final Result * ABO Group (08/04/2024 3:22 PM EST) Result [facility] MD LAB BLOOD BANK TEST ORDER SUSANA Final Result * Antibody screen (08/04/2024 3:22 PM EST) Blood Venous blood specimen / Unknown Result [facility] MD LAB BLOOD ORDERABLES Lorna l Result * Albumin (08/04/2024 3:14 PM EST) Blood Venous blood specimen / Unknown Result [facility] MD LAB BLOOD ORDERABLES Lorna l Result * Urinalysis, Complete, with Reflex to Culture (08/04/2024 3:06 PM EST) Urine Result [facility] MD LAB URINE ORDERABLES Lorna l Result * AMB HCG URINE TEST (08/04/2024 3:03 PM EST) Result [facility] MD LAB BLOOD ORDERABLES Lorna l Result * Prothrombin Time (PT) and Partial Thromboplastin Time (PTT) (08/04/2024 11:08 AM EST) Blood Venous blood specimen / Unknown Result [facility] Provider LAB BLOOD ORDERABLES Lorna l Result * ~PT, ~INR - ANTI COAG CLINIC (08/04/2024 11:08 AM EST) Result [facility] LAB BLOOD ORDERABLES Lorna l Result * CBC (08/04/2024 11:08 AM EST) Blood Venous blood specimen / Unknown Result [facility] LAB BLOOD ORDERABLES Loran l Result * Hemoglobin A1c (12/24/2023 9:16 AM EDT) Blood Venous blood specimen / Unknown Result [facility] LAB BLOOD ORDERABLES Lorna l Result * Lipid Panel, Standard (12/24/2023 9:12 AM EDT) Blood Venous blood specimen / Unknown Result [facility] POINT OF CARE TEST ENTER/ EDIT ORDERABLES Final Result * HEPATITIS B PROFILE (07/28/2021 2:59 PM EST) [facility] Hepatitis B Core Antibody Nonreactive Nonreactive [facility] Hepatitis B Surface Antibody REACTIVE Nonreactive [facility] Comment:REACTIVE: > 11.99 mI U/mL Hepatitis B Surface Antigen Negative Negative [facility] HIV AB/AG Nonreactive Nonreactive [facility] Comment: HIV-1 p24 Ag and/or HIV-1/HIV-2 Ab not detected. ?? A test result that is nonreactive does not exclude the possibility of exposure to or infection with HIV-1 and/or HIV-2. Nonreactive results in this assay for individuals with prior exposure to HIV-1 and/or HIV-2 may be due to antigen and antibody levels that are below the limit of detection of this assay. ?? The [employer] HIV Ag/Ab Combo assay result and supplemental assay results should be interpreted in conjunction with the patient's clinical presentation, history and other laboratory results. ??If the results are inconsistent with clinical evidence, additional testing is suggested to confirm the result. 07/28/2021 2:59 PM EST Historical Provider MD HISTORICAL/NON ORDERABLE LABS Final Result Performing Organization Address [facility] Co de Phone Number [facility] [address] [place] [address], * HEPATITIS C AB W/REFL TO HCV RNA, QN, PCR (06/27/2021 12:35 PM EST) HEPATITIS C ANTIBODY NON-REACT SU NON-REACT SU [facility] INDEX 0.02 <1.00 [facility] Comment: ?? HCV antibody was non-reactive. There is no laboratory ?? evidence of HCV infection. ?? In most cases, no further action is required. However, if recent HCV exposure is suspected, a test for HCV RNA (test code 92066) is suggested. ?? For additional information please refer to http://[employer]/faq/MRS63b3 (This link is being provided for informational/ educational purposes only.) ?? 06/27/2021 12:3 5 PM EST Betsy Naqvi MD HISTORICAL/NON ORDERABLE LABS Final Result Performing Organization Address [facility] de Phone Number [facility] [address] [place] [address], * THINPREP TIS PAP AND HPV mRNA E6/E7 REFLEX HPV 16,18/45 (06/03/2021 10:35 AM EST) Clinical Information: HPV+ LEEP 12 YRS AGO IN P.R [facility] COMMENT SEE COMMENT [facility] Comment: EXPLANATORY NOTE: ? The Pap is a screening test for cervical cancer. It is ?? not a diagnostic test and is subject to false negative ?? and false positive results. It is most reliable when a ?? satisfactory sample, regularly obtained, is submitted ?? with relevant clinical findings and history, and when ?? the Pap result is evaluated along with historic and ?? current clinical information. ?? COMMENT: This Pap test has been evaluated with computer assisted technology. [facility] Relief Cook: SEE COMMENT [facility] Comment: TUCK[place], CT(ASCP) CT screening location: [address] ??[id number] HPV nRNA E6/E7 Not Detected Not Detected [facility] Comment: Methodology: [employer]er-Mediated Amplification This assay detects E6/E7 viral messenger RNA (mRNA) from 14 high-risk HPV types (16,18,31,33,35,39,45,51,52,56,58,59,66,68). ? The analytical performance characteristics of this assay have been determined by [employer] The modifications have not been cleared or approved by the FDA. This assay has been validated pursuant to the CLIA regulations and is used for clinical purposes. ?? For additional information, please refer to http://education.[employer] Books/faq/DKT553g0 (This link if provided for information/ educational purposes only.) Interpretation/Re sult: Negative for intraepithelial lesion or malignancy. [facility] LMP: 05/2021 [facility] Prev. BX: NONE GIVEN [facility] Prev. PAP: 2,018 [facility] SOURCE: Cervix [facility] Statement Of Adequacy: SEE COMMENT [facility] Comment: Satisfactory for evaluation. Endocervical/transformation zone component absent. 06/03/2021 10:3 5 AM EST us Betsy Naqvi MD LAB PATHOLOGY ORDERABLES Lorna clements Result [facility] [address] from Last 3 Months or Most Recently Relevant to Health Maintenance Insurance [facility] C3 * Guarantor: Mary Gonzalez Account Type Relation to Patient Date of Phone Billing Address Personal/[place] [address] * Guarantor: Mary Gonzalez Account Type Relation to Patient Date of Phone Billing Address Personal/[place] [address] Care Teams Mental Health Director Relationship Specialty Start Date End Date Betsy Naqvi MD [address] [place] [address] [place] [id number] PCP - General Family Medicine 09/11/18
--- OUTSIDE RECORDS SUMMARY | 2024-08-21 15:40 | XMS_ITS | Encounter Summary ---
Author Organization [facility] Address [address] [facility] [facility] [address] [place] [address] Care Team Providers Care Zipper Slide Attacher Name Role Phone Betsy Naqvi MD Primary Care Provider [phone] Encounter Details Date Type Department Care Team (Late st Contact Info) Description 12/25/2023 Orders Only [facility] [address] [place] [address] Provider, MD Lv Social History Tobacco Use [...] Description 10/03/2024 9:30 AM EDT Clinical Support [facility] [address] [place] [address] documented as of this encounter Procedures Procedure Name Priority Date/Time Associated Diagnosis Comments HELICOBACTER PYLORI, UREA BREATH TEST Routine 12/24/2023 2:46 PM EDT CBC Routine 12/24/2023 9:21 AM EDT HEMOGLOBIN A1C Routine 12/24/2023 9:16 AM EDT PTH, INTACT WITHOUT CALCIUM Routine 12/24/2023 9:14 AM EDT LIPID PANEL, STANDARD (EXTERNAL RESULTS ONLY) Routine 12/24/2023 9:12 AM EDT IRON AND TOTAL IRON BINDING CAPACITY Routine 12/24/2023 9:09 AM EDT VITAMIN D 25 HYDROXY Routine 12/24/2023 9:09 AM EDT C-REACTIVE PROTEIN Routine 12/24/2023 9: 09 AM EDT TSH Routine 12/24/2023 9:09 AM EDT VITAMIN B12 Routine 12/24/2023 9:09 AM EDT COMPREHENSIVE METABOLIC PANEL Routine 12/24/2023 9:09 AM EDT INSULIN Routine 12/24/2023 8:38 AM EDT documented in this encounter Results * Helicobacter pylori, Urea Breath Test (12/24/2023 2:46 PM EDT) Breath Oral cavity structure / Unknown us Historical Provider LAB BLOOD ORDERABLES Lorna l Result * CBC (12/24/2023 9:21 AM EDT) Blood Venous blood specimen / Unknown Result [facility] MD LAB BLOOD ORDERABLES Lorna l Result * Hemoglobin A1c (12/24/2023 9:16 AM EDT) Blood Venous blood specimen / Unknown Result [facility] MD LAB BLOOD ORDERABLES Lorna l Result * PTH, Intact Without Calcium (12/24/2023 9:14 AM EDT) Blood Venous blood specimen / Unknown Result [facility] MD LAB BLOOD ORDERABLES Lorna l Result * Lipid Panel, Standard (12/24/2023 9:12 AM EDT) Blood Venous blood specimen / Unknown Result [facility] POINT OF CARE TEST ENTER/ EDIT ORDERABLES Final Result * Vitamin B12 (12/24/2023 9:09 AM EDT) Blood Venous blood specimen / Unknown Result [facility] MD LAB BLOOD ORDERABLES Lorna l Result * Vitamin D 25 hydroxy (12/24/2023 9:09 AM EDT) Blood Venous blood specimen / Unknown Result [facility] MD LAB BLOOD ORDERABLES Lorna l Result * Comprehensive Metabolic Panel (12/24/2023 9:09 AM EDT) Blood Venous blood specimen / Unknown Result [facility] LAB BLOOD ORDERABLES Lorna l Result * C-reactive Protein (12/24/2023 9:09 AM EDT) Blood Venous blood specimen / Unknown [facility] Provider MD LAB BLOOD ORDERABLES Lorna l Result * Iron And Total Iron Binding Capacity (12/24/2023 9:09 AM EDT) Blood Venous blood specimen / Unknown Result [facility] Provider MD LAB BLOOD ORDERABLES Lorna l Result * TSH (12/24/2023 9:09 AM EDT) Blood Venous blood specimen / Unknown Result [facility] Provider MD LAB BLOOD ORDERABLES Lorna l Result * Insulin (12/24/2023 8:38 AM EDT) Blood Venous blood specimen / Unknown Result [facility] Provider MD LAB BLOOD ORDERABLES Lorna l Result documented in this encounter Visit Diagnoses Not on filedocumented in this encounter Additional Health Concerns Assessment Noted Time PHQ-9 Depression Total Score: 0 03/13/20 23 9:01 AM EDT documented as of this encounter Care Teams Zipper Slide Attacher Relationship Specialty Start Date End Date Betsy Naqvi MD [address] [place] [address] PCP - General Family Medicine 09/11/18 documented as of this encounter
== END 2024-08-21 11:46 | disposition home or self-care (01) ==
LOC: HO.CHCLDS 11:45
PROVIDERS: Visit Provider Pediatrics
DX: E06.9 Thyroiditis, unspecified (principal); E03.8 Other specified hypothyroidism
CPT/HCPCS: 36415; 84439; 84443

== ENCOUNTER 2024-08-25 11:34 | Outpatient (REF) | payer MEDICAID, SELFPAY ==
--- OUTSIDE RECORDS SUMMARY | 2024-08-25 12:55 | XMS_ITS | Encounter Summary ---
Author Organization [employer] Address [address] [facility] 7t [place] [address] Care Team Providers Care Wildlife Forensic Geneticist Name Role Phone Betsy Naqvi MD Primary Care Provider [phone] Encounter Details Date Type Department Care Team (Late st Contact Info) Description 12/28/2023 Orders Only [facility] [address] [place], [place] [phone] Provider, MD Lv Social History Tobacco Use [...] 10/03/2024 9:30 AM EDT Clinical Support [facility] [address] [place] [address] documented as of this encounter Procedures Procedure [...] documented as of this encounter Care Teams Wildlife Forensic Geneticist Relationship Specialty Start Date End Date Betsy Naqvi MD [address] [place] [address] PCP - General Family Medicine 09/11/18 documented as of this encounter
--- OUTSIDE RECORDS SUMMARY | 2024-08-25 12:55 | XMS_ITS | Encounter Summary ---
Author Organization [employer] Address [address] [facility] 7[address] [place] [address] Care Team Providers Care Slitting Machine Operator Name Role Phone Betsy Naqvi MD Primary Care Provider [phone] Encounter Details Date Type Department Care Team (Late st Contact Info) Description 08/22/[address] [facility] [address] [place], [place] [phone] Betsy Naqvi MD [address] [place] [address] Social History Tobacco Use Types Packs/Day Years [...] t he electric, gas, oil or water [employer] threatened to shut off services in your [...] encounter Miscellaneous Notes * Telephone Encounter - Betsy Naqvi MD - 08/22/2024 11:31 AM EST Result Communication Resulted Orders TSH W/Reflex to FT4 Result Value Ref Range TSH reflex Free T4 0.10 (L) 0.32 - 4.0 uIU/mL 11:31 AM Results were successfully communicated with the patient and they acknowledged their understanding. Order for thyroid US done and T3 levels to be checked. documented in this encounter Plan of Treatment Upcoming Encounters Date Type Department Care Team (Late st Contact Info) Description 10/03/2024 9:30 AM EDT Clinical Support [facility] [address] [place] [address] Scheduled Orders Name Type Priority Associated Diagnoses Orde r Schedule TSI (Thyroid Stimulating Immunoglobulin) Lab Routine Thyroid nodule Expected: 08/22/2024 (Approximate), Expires: 08/22/2025 documented as of this encounter Visit Diagnoses Diagnosis Thyroid nodule- Primary Nontoxic uninodular goiter documented in this encounter Additional Health Concerns Assessment Noted Time PHQ-9 Depression Total Score: 0 03/13/20 23 9:01 AM EDT documented as of this encounter Care Teams Slitting Machine Operator Relationship Specialty Start Date End Date Betsy Naqvi MD [address] [place] [address] PCP - General Family Medicine 09/11/18 documented as of this encounter
--- OUTSIDE RECORDS SUMMARY | 2024-08-25 12:55 | XMS_ITS | Encounter Summary ---
Author Organization [employer] Address [address] [facility] 7t [place] [address] Care Team Providers Care Filter Operator Name Role Phone Betsy Naqvi MD Primary Care Provider [phone] Encounter Details Date Type Department Care Team (Late st Contact Info) Description 08/04/2024 Orders Only [facility] [address] [place] [address] Provider, MD Lv Social History Tobacco Use [...] Upcoming Encounters Date Type Department Care Team ([facility] st Contact Info) Description 10/03/2024 9:30 AM EDT Clinical Support [facility] [address] [place] [address] documented as of this encounter Procedures Procedure Name Priority Date/Time Associated Diagnosis Comments PROTHROMBIN TIME (PT)/PARTIAL THROMBOPLASTIN TIME PTT Routine 08/04/2024 11:08 AM EST ~PT, ~INR - ANTI COAG CLINIC Routine 08/04/2024 11:08 AM EST CBC Routine 08/04/2024 11:08 AM EST documented in this encounter Results * CBC (08/04/2024 11:08 AM EST) Blood Venous blood specimen / Unknown [facility] Provider MD LAB BLOOD ORDERABLES Lorna l Result * ~PT, ~INR - ANTI COAG CLINIC (08/04/2024 11:08 AM EST) [facility] Provider MD LAB BLOOD ORDERABLES Lorna [...] documented as of this encounter Care Teams Filter Operator Relationship Specialty Start Date End Date Betsy Naqvi MD [address] [place] [address] PCP - General Family Medicine 09/11/18 documented as of this encounter
--- OUTSIDE RECORDS SUMMARY | 2024-08-25 12:55 | XMS_ITS | Encounter Summary ---
Author Organization [employer] Address [address] [facility] 7t [place] [address] Care Team Providers Care Management Intern Name Role Phone Betsy Naqvi MD Primary Care Provider [phone] Encounter Details Date Type Department Care Team (Late st Contact Info) Description 02/14/2024 Orders Only [facility] [address] [place], [place] [phone] Provider, MD Lv Social History Tobacco Use [...] [facility] MED & PEDS [address] [place] [address] documented as of this encounter Procedures Procedure [...] documented as of this encounter Care Teams Management Intern Relationship Specialty Start Date End Date Betsy Naqvi MD [address] [place] [address] PCP - General Family Medicine 09/11/18 documented as of this encounter
--- OUTSIDE RECORDS SUMMARY | 2024-08-25 12:55 | XMS_ITS | Encounter Summary ---
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 History provided by: Patient scale operator used: No Review of Systems Constitutional: Negative [...] 10/03/2024 9:30 AM EDT Clinical Support [facility]S [address] [place] [address] documented as of this encounter Procedures Procedure Name Priority Date/Time Associated Diagnosis Comments TSH W/REFLEX TO FT4 Routine 08/21/2024 1 1:46 AM EST Hypothyroidism due to thyroiditis documented in this encounter Results * (ABNORMAL) TSH W/Reflex to FT4 (08/21/2024 11:46 AM EST) TSH reflex Free T4 0.10(L) 0.32 - 4.0 uIU/mL [facility] Blood Venous blood specimen / Unknown 08/21/2024 11:46 AM EST 08/21/2024 2:01 PM EST us Betsy Naqvi MD LAB BLOOD ORDERABLES Final Re sult [facility] [address] [place] [address] [phone] documented in this encounter Visit Diagnoses Diagnosis Hypothyroidism due to thyroiditis- Primary Encounter for immunization Primary hypertension Unspecified essential hypertension documented in this encounter Additional Health Concerns Assessment Noted Time PHQ-9 Depression Total Score: 0 03/13/20 23 9:01 AM EDT documented as of this encounter Care Teams Advertising Dispatch Clerks Supervisor Relationship Specialty Start Date End Date Betsy Naqvi MD [address] [place] [address] PCP - General Family Medicine 09/11/18 documented as of this encounter
--- OUTSIDE RECORDS SUMMARY | 2024-08-25 12:55 | XMS_ITS | Encounter Summary ---
Author Organization [employer] Address [address] [place] [address] Care Team Providers Care Full Fashioned Garment Knitter Name Role Phone Betsy Naqvi MD Primary Care Provider [phone] Reason for Referral * Imaging (Routine) - Authorized Specialty Diagnoses / Procedures Referred By Contac t Referred To Contact Radiology Diagnoses Subclinical hyperthyroidism History of thyroid nodule Procedures US Thyroid Betsy Naqvi MD [address] [place] [address] Phone: tel: fax: [address] Phone: tel: fax: Referral ID Status Reason Start Date Expiration Date V isits Requested Visits Authorized [id number] Authorized 08/22/2024 08/22/2025 1 1 Encounter Details Date Type Department Care Team (Late st Contact Info) Description 08/22/2024 Orders Only [facility] [address] [place] [address] Betsy Naqvi MD [address] [place], [place] [phone] Subclinical hyperthyroidism (Primary Dx); History of thyroid nodule Social History Tobacco Use Types Packs/Day Years [...] Description 10/03/2024 9:30 AM EDT Clinical Support [facility] MED & PEDS [address] [place] [address] Scheduled Orders Name Type Priority Associated Diagnoses Orde r Schedule T3, Total Lab Routine Subclinical hyperthyroidism History of thyroid nodule Expected: 08/22/2024 (Approximate), Expires: 08/22/2025 US Thyroid Imaging Routine Subclinical hyperthyroidism History of thyroid nodule Expected: 08/22/2024, Expires: 08/22/2025 documented as of this encounter Visit Diagnoses Diagnosis Subclinical hyperthyroidism- Primary Thyrotoxicosis without mention of goiter or other cause, without mention of thyrotoxic crisis or storm History of thyroid nodule documented in this encounter Additional Health Concerns Assessment Noted Time PHQ-9 Depression Total Score: 0 03/13/20 23 9:01 AM EDT documented as of this encounter Care Teams Full Fashioned Garment Knitter Relationship Specialty Start Date End Date Betsy Naqvi MD [address] [place] [address] PCP - General Family Medicine 09/11/18 documented as of this encounter
--- OUTSIDE RECORDS SUMMARY | 2024-08-25 12:55 | XMS_ITS | Encounter Summary ---
Author Organization [employer] Address 75 [facility] 7t [place] [address] Care Team Providers Care Quality Assurance Assistant Name Role Phone Betsy Naqvi MD Primary Care Provider [phone] Encounter Details Date Type Department Care Team (Late st Contact Info) Description 12/25/2023 Orders [address] [facility] MED & PEDS [address] [place] [address] Provider, MD Lv Social History Tobacco Use [...] [facility] [address] [place] [address] documented as of this encounter Procedures Procedure [...] Blood Venous blood specimen / Unknown Result [facility] MD LAB BLOOD ORDERABLES Lorna l Result * Hemoglobin A1c (12/24/2023 9:16 AM EDT) Blood Venous blood specimen / Unknown Result [facility] MD LAB BLOOD ORDERABLES Lorna l Result * PTH, Intact Without Calcium (12/24/2023 9:14 AM EDT) Blood Venous blood specimen / Unknown Result [facility] MD LAB BLOOD ORDERABLES Lorna l Result * Lipid Panel, Standard (12/24/2023 9:12 AM EDT) Blood Venous blood specimen / Unknown Result [facility] POINT OF CARE TEST ENTER/ EDIT ORDERABLES Final Result * Vitamin B12 (12/24/2023 9:09 AM EDT) Blood Venous blood specimen / Unknown Result [facility] MD LAB BLOOD ORDERABLES Lorna l Result * Vitamin D 25 hydroxy (12/24/2023 9:09 AM EDT) Blood Venous blood specimen / Unknown Result [facility] MD LAB BLOOD ORDERABLES Lorna l Result * Comprehensive Metabolic Panel (12/24/2023 9:09 AM EDT) Blood Venous blood specimen / Unknown Result [facility] LAB BLOOD ORDERABLES Lorna l Result * C-reactive Protein (12/24/2023 9:09 AM EDT) Blood Venous blood specimen / Unknown [facility] Provider MD LAB BLOOD ORDERABLES Lorna l Result * Iron And Total Iron Binding Capacity (12/24/2023 9:09 AM EDT) Blood Venous blood specimen / Unknown Result [facility] Provider MD LAB BLOOD ORDERABLES Lorna l Result * TSH (12/24/2023 9:09 AM EDT) Blood Venous blood specimen / Unknown Result [facility] Provider MD LAB BLOOD ORDERABLES Lorna l Result * Insulin (12/24/2023 8:38 AM EDT) Blood Venous blood specimen / Unknown Result [facility] Provider MD LAB BLOOD ORDERABLES Lorna l Result documented in this encounter Visit Diagnoses Not on filedocumented in this encounter Additional Health Concerns Assessment Noted Time PHQ-9 Depression Total Score: 0 03/13/20 23 9:01 AM EDT documented as of this encounter Care Teams Quality Assurance Assistant Relationship Specialty Start Date End Date Betsy Naqvi MD [address] [place] [address] PCP - General Family Medicine 09/11/18 documented as of this encounter
--- OUTSIDE RECORDS SUMMARY | 2024-08-25 12:55 | XMS_ITS | Encounter Summary ---
Author Organization [employer] Address [address] [facility] 7t [place] [address] Care Team Providers Care Apartment Hotel Manager Name Role Phone Betsy Naqvi MD Primary Care Provider [phone] Encounter Details Date Type Department Care Team (Late st Contact Info) Description 02/13/2024 Orders Only [facility] [address] [place], [place] [phone] Provider, MD Lv Social History Tobacco Use [...] 10/03/2024 9:30 AM EDT Clinical Support [facility] [address] [place] [address] documented as of this encounter Procedures Procedure [...] documented as of this encounter Care Teams Apartment Hotel Manager Relationship Specialty Start Date End Date Betsy Naqvi MD [address] [place] [address] PCP - General Family Medicine 09/11/18 documented as of this encounter
--- OUTSIDE RECORDS SUMMARY | 2024-08-25 12:55 | XMS_ITS | Encounter Summary ---
Author Organization [employer] Address [address] [facility] 7t [place] [address] Care Team Providers Care Aircraft Machinist Name Role Phone Betsy Naqvi MD Primary Care Provider [phone] Encounter Details Date Type Department Care Team (Late st Contact Info) Description 08/07/2024 Orders Only [facility] & PEDS [address] [place] [address] Provider, MD Lv Social History Tobacco Use [...] Upcoming Encounters Date Type Department Care Team ([facility] st Contact Info) Description 10/03/2024 9:30 AM EDT Clinical Support [facility]EDS [address] [place] [address] documented as of this encounter Procedures Procedure [...] documented as of this encounter Care Teams Aircraft Machinist Relationship Specialty Start Date End Date Betsy Naqvi MD [address] [place] [address] PCP - General Family Medicine 09/11/18 documented as of this encounter
--- OUTSIDE RECORDS SUMMARY | 2024-08-25 12:55 | XMS_ITS | Clinical Summary ---
Author Organization [employer] Address [address] [place] [address] 7t [place] [address] Care Team Providers Care National Accounts Sales Name Role Phone Betsy Naqvi MD Primary Care Provider [phone] Allergies Active Allergy Reactions Criticality Noted Date [...] protein shake or a protein bar or Kosovan yogurt or cottage cheese to be consumed [...] Encounters Date Type Department Care Team Description 08/22/[address] [facility] [address] [place] [address] Betsy Naqvi MD 08/22/[address] 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 [address] [place] [address] Betsy Naqvi MD Chart Prep 08/07/[address] [facility] [address] [place] [address] Lv Champagne MD 08/06/2024 Orders Only [facility] [address] [place] [address] Lv Champagne MD 08/05/[address] [facility] [address] [place] [address] Lv Champagne MD 08/04/2024 Orders Only [facility] [address] [place], [place] [phone] Lv Champagne MD 07/08/2024 9:00 AM EST Office Visit [facility] [address] [place] [address] Tucker Hewitt MD 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, unspecified chronicity (Primary Dx) 07/02/2024 Telephone [facility] & PED[facility] [address] [place] [address] Betsy Naqvi MD Med Refill from Last [...] Description 10/03/2024 9:30 AM EDT Clinical Support [facility] & PEDS [address] [place] [address] Health Maintenance Due Date Last Done Comments [...] Procedure Name Priority Date/Time Associated Diagnosis Comments T4, FREE Routine 08/21/2024 11:46 AM EST TSH W/REFLEX TO FT4 Routine 08/21/2024 1 [...] RESULTS ONLY) Routine 12/24/2023 9:12 AM EDT [facility] HISTORICAL HEPATITIS B PROFILE Routine 07/28/2021 2:59 [...] Free T4 0.10(L) 0.32 - 4.0 uIU/mL [facility] Blood Venous blood specimen / Unknown 08/21/2024 11:46 AM EST 08/21/2024 2:01 PM EST us Betsy Naqvi MD LAB BLOOD ORDERABLES Final Re sult [facility] [address] [place] [address] [phone] * T4, Free (08/21/2024 11:46 AM EST) Free T4 (Free Thyroxine) 1.00 0.71 - 1.85 ng/dL [facility] 08/21/2024 11:4 6 AM EST 08/21/2024 2:01 PM EST Result [facility] Betsy Naqvi MD LAB BLOOD ORDERABLES Final Re sult [facility] [address] [place] [address] [phone] * Basic Metabolic Panel (08/06/2024 3:11 PM EST) Only the most recent of2 resultswithin the time period is included. Blood Venous blood specimen / Unknown Result [facility] Provider LAB BLOOD ORDERABLES Lorna l Result * Surgical Pathology (08/05/2024 11:23 AM EST) Result [facility] Provider MD LAB PATHOLOGY ORDERABLES Final Result * ABO Group And RH Type (08/05/2024 10:43 AM EST) Blood Venous blood specimen / Unknown Result [facility] Provider MD LAB BLOOD BANK TEST ORDER SUSANA Final Result * MRSA Culture Screen (08/05/2024 10:21 AM EST) Swab Nasopharyngeal structure / Unknown Result [facility] Provider MD LAB MICROBIOLOGY - GENERA L ORDERABLES Final Result * ABO Group (08/04/2024 3:22 PM EST) Result [facility] Provider MD LAB BLOOD BANK TEST ORDER SUSANA Final Result * Antibody screen (08/04/2024 3:22 PM EST) Blood Venous blood specimen / Unknown Result [facility] LAB BLOOD ORDERABLES Lorna l Result * Albumin (08/04/2024 3:14 PM EST) Blood Venous blood specimen / Unknown Result [facility] LAB BLOOD ORDERABLES Lorna l Result * Urinalysis, Complete, with Reflex to Culture (08/04/2024 3:06 PM EST) Urine Result [facility] LAB URINE ORDERABLES Lorna l Result * AMB HCG URINE TEST (08/04/2024 3:03 PM EST) Result [facility] LAB BLOOD ORDERABLES Lorna l Result * Prothrombin Time (PT) and Partial Thromboplastin Time (PTT) (08/04/2024 11:08 AM EST) Blood Venous blood specimen / Unknown Result [facility] LAB BLOOD ORDERABLES Lorna l Result * ~PT, ~INR - ANTI COAG CLINIC (08/04/2024 11:08 AM EST) Result [facility] LAB BLOOD ORDERABLES Lorna l Result * CBC (08/04/2024 11:08 AM EST) Blood Venous blood specimen / Unknown Result [facility] LAB BLOOD ORDERABLES Lorna l Result * Hemoglobin A1c (12/24/2023 9:16 AM EDT) Blood Venous blood specimen / Unknown Historical Provider LAB BLOOD ORDERABLES Lorna l Result * Lipid Panel, Standard (12/24/2023 9:12 AM EDT) Blood Venous blood specimen / Unknown Historical Provider POINT OF CARE TEST ENTER/ EDIT ORDERABLES Final Result * HEPATITIS B PROFILE (07/28/2021 2:59 PM EST) Pathologist [facility] Hepatitis B Core Antibody Nonreactive Nonreactive [facility] Hepatitis B Surface Antibody REACTIVE Nonreactive [facility] Comment:REACTIVE: > 11.99 mI U/mL Hepatitis B Surface Antigen Negative Negative [facility] HIV AB/AG Nonreactive Nonreactive [facility] Comment: HIV-1 p24 Ag and/or [...] detection of this assay. ?? The [employer] Trace Evidence Technician HIV Ag/Ab Combo assay result and supplemental assay results should be interpreted in conjunction with the patient's clinical presentation, history and other laboratory results. ??If the results are inconsistent with clinical evidence, additional testing is suggested to confirm the result. 07/28/2021 2:59 PM EST Historical Provider HISTORICAL/NON ORDERABLE LABS Final Result [facility] [address] * HEPATITIS C AB W/REFL TO HCV RNA, QN, PCR (06/27/2021 12:35 PM EST) Pathologist [facility] HEPATITIS C ANTIBODY NON-REACT SU NON-REACT SU [facility] INDEX 0.02 <1.00 [facility] Comment: ?? HCV antibody was non-reactive. There is no laboratory ?? evidence of HCV infection. ?? In most cases, no further action is required. However, if recent HCV exposure is suspected, a test for HCV RNA (test code 15802) is suggested. ?? For additional information please refer to http://education.[employer]/faq/XKQ38u9 (This link is being provided for informational/ educational purposes only.) ?? 06/27/2021 12:3 5 PM EST us Betsy Naqvi MD HISTORICAL/NON ORDERABLE LABS Final Result [facility] [address] [place] [address], * THINPREP TIS PAP AND HPV mRNA E6/E7 REFLEX HPV 16,18/45 (06/03/2021 10:35 AM EST) Clinical Information: HPV+ LEEP 12 YRS AGO IN P.R [facility] COMMENT SEE COMMENT FOUNDAT[facility] ON [...] has been evaluated with computer assisted technology. [facility] Mobile Application Tester: SEE COMMENT [facility] Comment: [place], CT(ASCP) CT screening location: [address] ??[id number] HPV nRNA E6/E7 Not Detected Not Detected [facility] Comment: Methodology: Etl [employer] Architect-Mediated Amplification This assay detects E6/E7 viral messenger RNA (mRNA) from 14 high-risk HPV types (16,18,31,33,35,39,45,51,52,56,58,59,66,68). ? The analytical performance characteristics of this assay have been determined by [employer]. The modifications have not been cleared or approved by the FDA. This assay has been validated pursuant to the CLIA regulations and is used for clinical purposes. ?? For additional information, please refer to http://education.[employer]/faq/FUU531l2 (This link if provided for information/ educational purposes only.) Interpretation/Re sult: Negative for intraepithelial lesion or malignancy. [facility] LMP: 05/2021 [facility] Prev. BX: NONE GIVEN [facility] Prev. PAP: 2,018 [facility] SOURCE: [employer] [facility] Statement Of Adequacy: SEE COMMENT [facility] Comment: Satisfactory for evaluation. Endocervical/transformation zone component absent. 06/03/2021 10:3 5 AM EST us Betsy Naqvi MD LAB PATHOLOGY ORDERABLES Lorna clements Result [facility] [address] from Last 3 Months or Most Recently Relevant to Health [place] [address] [facility] * Guarantor: Mary Gonzalez Account Type Relation to Patient Date of Phone Billing Address Personal/[place] [address] * Guarantor: Mary Gonzalez Account Type Relation to Patient Date of Phone Billing Address Personal/[place] [address] Care Teams National Accounts Sales Relationship Specialty Start Date End Date Betsy Naqvi MD [address] [place] [address] [place] [address] PCP - General Family Medicine 09/11/18
--- OUTSIDE RECORDS SUMMARY | 2024-08-25 12:55 | XMS_ITS | Encounter Summary ---
Author Organization [employer] Address [address] [facility] [address] [address] Care Team Providers Care Power Plant Operations Manager Name Role Phone Betsy Naqvi MD Primary Care Provider Reason for Visit * Reason Onset Date Comments Paperwork/Forms 01/16/2024 Encounter Details Date Type Department Care Team ([facility] st Contact Info) Description 01/16/2024 Telephone [facility] [address] [place] [address] Betsy Naqvi MD [address] [facility] [place], [place] [phone] Paperwork/Forms Social History Tobacco Use Types Packs/Day [...] Upcoming Encounters Date Type Department Care Team ([facility] st Contact Info) Description 10/03/2024 9:30 AM EDT Clinical Support [facility] MED & PEDS [address] [place] [address] documented as of this encounter Visit Diagnoses Not on filedocumented in this encounter Additional Health Concerns Assessment Noted Time PHQ-9 Depression Total Score: 0 03/13/20 23 9:01 AM EDT documented as of this encounter Care Teams Power Plant Operations Manager Relationship Specialty Start Date End Date Betsy Naqvi MD [address] [place] [address] PCP - General Family Medicine 09/11/18 documented as of this encounter
--- OUTSIDE RECORDS SUMMARY | 2024-08-25 12:55 | XMS_ITS | Encounter Summary ---
Author Organization [employer] Address 75 [facility] 7 [place] [address] Care Team Providers Care Clay Preparation Supervisor Name Role Phone Betsy Naqvi MD Primary Care Provider [phone] Encounter Details Date Type Department Care Team ([facility] st Contact Info) Description 08/21/2024 Orders Only [facility] & [facility]EDS [address] [place], [place] [phone] Betsy Naqvi MD [address] [place] [address] Social History Tobacco Use Types Packs/Day Years [...] the past 12 months, has t he Retail Info, [employer], oil or water [employer] threatened to shut off services in your [...] 10/03/2024 9:30 AM EDT Clinical Support [facility] [address] [place] [address] documented as of this encounter Procedures Procedure Name Priority Date/Time Associated Diagnosis Comments T4, FREE Routine 08/21/2024 11:46 AM EST documented in this encounter Results * T4, Free (08/21/2024 11:46 AM EST) Free T4 (Free Thyroxine) 1.00 0.71 - 1.85 ng/dL [facility] 08/21/2024 11:4 6 AM EST 08/21/2024 2:01 PM EST us Betsy Naqvi MD LAB BLOOD ORDERABLES Final Re sult [facility] [address] [place] [address] [phone] documented in this encounter Visit Diagnoses Not on filedocumented in this encounter Additional Health Concerns Assessment Noted Time PHQ-9 Depression Total Score: 0 03/13/20 23 9:01 AM EDT documented as of this encounter Care Teams Clay Preparation Supervisor Relationship Specialty Start Date End Date Betsy Naqvi MD [address] [place] [address] PCP - General Family Medicine 09/11/18 documented as of this encounter
--- OUTSIDE RECORDS SUMMARY | 2024-08-25 12:55 | XMS_ITS | Encounter Summary ---
Author Organization [employer] Address [address] [facility] 7t [place] [address] Care Team Providers Care Wool Cleaner Name Role Phone Betsy Naqvi MD Primary Care Provider [phone] Encounter Details Date Type Department Care Team (Late st Contact Info) Description 08/05/2024 Orders Only [facility] CHC MED & PEDS [address] [place] [address] Provider, MD Lv Social History Tobacco Use [...] Description 10/03/2024 9:30 AM EDT Clinical Support [facility] MED & PEDS [address] [place] [address] documented as of this encounter Procedures Procedure [...] EST) Blood Venous blood specimen / Unknown [facility] Provider MD LAB BLOOD ORDERABLES Lorna l Result * Basic Metabolic Panel (08/04/2024 3:14 PM EST) Blood Venous blood specimen / Unknown Result [facility] Provider MD LAB BLOOD ORDERABLES Lorna l Result * Albumin (08/04/2024 3:14 PM EST) Blood Venous blood specimen / Unknown Result [facility] Provider MD LAB BLOOD ORDERABLES Lorna l Result * Urinalysis, Complete, with Reflex to Culture (08/04/2024 3:06 PM EST) Urine Result [facility] Provider LAB URINE ORDERABLES Lorna l Result * AMB HCG URINE TEST (08/04/2024 3:03 PM EST) Result [facility] Provider MD LAB BLOOD ORDERABLES Lorna l Result documented in this encounter Visit Diagnoses Not on filedocumented in this encounter Additional Health Concerns Assessment Noted Time PHQ-9 Depression Total Score: 0 03/13/20 23 9:01 AM EDT documented as of this encounter Care Teams Wool Cleaner Relationship Specialty Start Date End Date Betsy Naqvi MD [address] [place] [address] PCP - General Family Medicine 09/11/18 documented as of this encounter
--- OUTSIDE RECORDS SUMMARY | 2024-08-25 12:55 | XMS_ITS | Encounter Summary ---
Author Organization [employer] Address [address] [facility] [address] [place] [address] Care Team Providers Care Director Of National Sales Name Role Phone Betsy Naqvi MD [...] your housing situation today? I have esha dorian 05/21/[address] [...] Clinical Support [facility] MED & PEDS [address] [place] [address] documented as of this encounter Visit Diagnoses Not on filedocumented in this encounter Additional Health Concerns Assessment Noted Time PHQ-9 Depression Total Score: 0 03/13/20 23 9:01 AM EDT documented as of this encounter Care Teams Director Of National Sales Relationship Specialty Start Date End Date Betsy Naqvi MD [address] [place] [address] PCP - General Family Medicine 09/11/18 documented as of this encounter
--- OUTSIDE RECORDS SUMMARY | 2024-08-25 12:55 | XMS_ITS | Encounter Summary ---
Author Organization [employer] Address [address] [facility] 7t [place] [address] Care Team Providers Care Level Vial Setter Name Role Phone Betsy Naqvi MD Primary Care Provider [phone] Encounter Details Date Type Department Care Team (Late st Contact Info) Description 2023 Orders Only [facility] CHC MED & PEDS [address] [place] [address] Provider, MD Lv Social History Tobacco Use [...] Description 10/03/2024 9:30 AM EDT Clinical Support [facility] MED & PEDS [address] [place] [address] documented as of this encounter Procedures Procedure [...] documented as of this encounter Care Teams Level Vial Setter Relationship Specialty Start Date End Date Betsy Naqvi MD 505 [place] [address] PCP - General Family Medicine 09/11/18 documented as of this encounter
--- OUTSIDE RECORDS SUMMARY | 2024-08-25 12:55 | XMS_ITS | Encounter Summary ---
Author Organization [employer] Address [address] [facility] 7t [place] [address] Care Team Providers Care Polisher Aluminum Name Role Phone Betsy Naqvi MD Primary Care Provider [phone] Encounter Details Date Type Department Care Team (Late st Contact Info) Description 08/06/2024 Orders Only [facility] [address] [place], [place] [id number] Provider, MD Lv Social History Tobacco Use [...] 9:30 AM EDT Clinical Support [facility] MED & PEDS [address] [place] [address] documented as of this encounter Procedures Procedure [...] documented as of this encounter Care Teams Polisher Aluminum Relationship Specialty Start Date End Date Betsy Naqvi MD [address] [place] [address] PCP - General Family Medicine 09/11/18 documented as of this encounter
--- OUTSIDE RECORDS SUMMARY | 2024-08-25 12:55 | XMS_ITS | Encounter Summary ---
Author Organization [employer] Address [address] [place] [address] Care Team Providers Care Mud Jack Nozzleman Name Role Phone Betsy Naqvi MD Primary Care Provider Reason for Visit * Reason Onset Date Comments Chart Prep 08/20/2024 Encounter Details Date Type Department Care Team ([facility] Contact Info) Description 08/20/2024 Telephone [facility] [address] [place] [address] Betsy Naqvi MD [address] [place] [address] Chart Prep Social History Tobacco Use Types [...] Description 10/03/2024 9:30 AM EDT Clinical Support [facility] CHC MED & PEDS [address] [place] [address] documented as of this encounter Visit Diagnoses Not on filedocumented in this encounter Additional Health Concerns Assessment Noted Time PHQ-9 Depression Total Score: 0 03/13/20 23 9:01 AM EDT documented as of this encounter Care Teams Mud Jack Nozzleman Relationship Specialty Start Date End Date Betsy Naqvi MD [address] [place] [address] PCP - General Family Medicine 09/11/18 documented as of this encounter
[2024-08-26 09:59] LABS: Triiodothyronine T3 Total 76 ng/dL (76-181)
[2024-09-02 13:08] LABS: Thyroid Stimulating Immunoglob 103 % baseline (<140)
== END 2024-08-25 11:35 | disposition home or self-care (01) ==
LOC: HO.CHCLDS 11:34
PROVIDERS: Visit Provider Pediatrics
DX: E05.90 Thyrotoxicosis, unspecified without thyrotoxic crisis or storm (principal); E04.1 Nontoxic single thyroid nodule; Z86.39 Personal history of other endocrine, nutritional and metabolic disease
CPT/HCPCS: 36415; 84445; 84480

== ENCOUNTER 2024-09-22 10:39 | Outpatient (REF) | payer MEDICAID, SELFPAY ==
--- NOTE | ~2024-09-22 | US_ITS ---
.EXAMINATION: US THYROID CLINICAL INFORMATION: Hyperthyroidism. COMPARISON: August 27, 2017 TECHNIQUE: Linear transducer grayscale and color Doppler examination with attention to the region of the thyroid. FINDINGS: SIZE: Measurements of the thyroid lobes and nodules are given in sagittal, anteroposterior and transverse dimensions respectively. Right Thyroid Lobe: 4.3 x 1.7 x 1.6 cm, volume 5.8 mL. Previously: 4.3 x 1.6 x 1.6 cm. and volume 5.7 disease. Parenchyma: The gland echotexture is heterogeneous. Thyroid vascularity is normal. Left Thyroid Lobe: 3.4 x 1.3 x 1.3 cm, volume 2.9 mL. Previous: 3.4 x 1.6 x 1.5 cm endometrium 4.2 cc. Parenchyma: The gland echotexture is heterogeneous. Thyroid vascularity is normal. Isthmus: 0.42 cm in maximum AP dimension. Previous: 0.5 Estimated total number of nodules greater than or equal to 1 cm: None. Manager Star nodules are described as follows: NODES: No lymphadenopathy is seen in the tissue surrounding the thyroid gland. US/US thyroid IMPRESSION: No dominant nodules. ACR TI-RADS 0. ACR TI-RADS RECOMMENDATION REFERENCE: Ultrasound-guided fine-needle aspiration, followup ultrasound, no further follow up. * TR1 (0 point) and TR2 (2 points): No FNA or follow up. * TR3 (3 points): FNA if more than or equal to 2.5 cm in maximum dimension, followup ultrasound in 1, 3 and 5 years if 1.5 to 2.4 cm in maximum dimension. * TR4 (4-6 points): FNA if more than or equal to 1.5 cm in maximum dimension, followup ultrasound in 1, 2, 3 and 5 years if 1 to 1.4 cm in maximum dimension. * TR5 (more than or equal to 7 points): FNA if more than or equal to 1 cm in maximum dimension, followup ultrasound every year for 5 years if 0.5 to 0.9 cm in maximum dimension. * TR3, TR4 or TR5 nodules that are below the size threshold for followup receive no follow up. Electronically signed by: Shubham Espino MD 09/22/2024 02:[address] [facility]
--- OUTSIDE RECORDS SUMMARY | 2024-09-22 12:26 | XMS_ITS | Encounter Summary ---
Author Organization [employer] Address [address] [facility] 7t [place] [address] Care Team Providers Care Retail Leader Name Role Phone Betsy Naqvi MD Primary Care Provider [phone] Encounter Details Date Type Department Care Team (Late st Contact Info) Description 12/25/2023 Orders Only [facility] CHC MED & PEDS [address] [place] [address] Provider, MD Lv Social History Tobacco Use [...] 10/03/2024 9:30 AM EDT Clinical Support [facility] MED & PEDS [address] [place] [address] documented as of this encounter Procedures Procedure [...] Blood Venous blood specimen / Unknown Result [facility] MD LAB BLOOD ORDERABLES Lorna l Result * Hemoglobin A1c (12/24/2023 9:16 AM EDT) Blood Venous blood specimen / Unknown Result [facility] MD LAB BLOOD ORDERABLES Lorna l Result * PTH, Intact Without Calcium (12/24/2023 9:14 AM EDT) Blood Venous blood specimen / Unknown Result [facility] MD LAB BLOOD ORDERABLES Lorna l Result * Lipid Panel, Standard (12/24/2023 9:12 AM EDT) Blood Venous blood specimen / Unknown Result [facility] POINT OF CARE TEST ENTER/ EDIT ORDERABLES Final Result * Vitamin B12 (12/24/2023 9:09 AM EDT) Blood Venous blood specimen / Unknown Result [facility] MD LAB BLOOD ORDERABLES Lorna l Result * Vitamin D 25 hydroxy (12/24/2023 9:09 AM EDT) Blood Venous blood specimen / Unknown Result [facility] MD LAB BLOOD ORDERABLES Lorna l Result * Comprehensive Metabolic Panel (12/24/2023 9:09 AM EDT) Blood Venous blood specimen / Unknown Result [facility] LAB BLOOD ORDERABLES Lorna l Result * C-reactive Protein (12/24/2023 9:09 AM EDT) Blood Venous blood specimen / Unknown [facility] Provider MD LAB BLOOD ORDERABLES Lorna l Result * Iron And Total Iron Binding Capacity (12/24/2023 9:09 AM EDT) Blood Venous blood specimen / Unknown Result [facility] Provider MD LAB BLOOD ORDERABLES Lorna l Result * TSH (12/24/2023 9:09 AM EDT) Blood Venous blood specimen / Unknown Result [facility] Provider MD LAB BLOOD ORDERABLES Lorna l Result * Insulin (12/24/2023 8:38 AM EDT) Blood Venous blood specimen / Unknown Result [facility] Provider MD LAB BLOOD ORDERABLES Olrna l Result documented in this encounter Visit Diagnoses Not on filedocumented in this encounter Additional Health Concerns Assessment Noted Time PHQ-9 Depression Total Score: 0 03/13/20 23 9:01 AM EDT documented as of this encounter Care Teams Retail Leader Relationship Specialty Start Date End Date Betsy Naqvi MD [address] [place] [address] PCP - General Family Medicine 09/11/18 documented as of this encounter
--- OUTSIDE RECORDS SUMMARY | 2024-09-22 12:26 | XMS_ITS | Encounter Summary ---
Author Organization [employer] Address [address] [facility] [place], [place] [address] Care Team Providers Care Flooring Machine Operator Name Role Phone Betsy Naqvi MD Primary Care Provider [phone] Reason for Visit * Reason Onset Date Comments Paperwork/Forms 01/16/2024 Encounter Details Date Type Department Care Team ([facility] st Contact Info) Description 01/16/2024 Telephone [facility] [address] [place] [address] Betsy Naqvi MD [address] [facility] [place], [place] [phone] Paperwork/Forms Social History Tobacco Use Types Packs/Day [...] Upcoming Encounters Date Type Department Care Team ([facility] st Contact Info) Description 10/03/2024 9:30 AM EDT Clinical Support [facility] MED & PEDS [address] [place] [address] documented as of this encounter Visit Diagnoses Not on filedocumented in this encounter Additional Health Concerns Assessment Noted Time PHQ-9 Depression Total Score: 0 03/13/20 23 9:01 AM EDT documented as of this encounter Care Teams Flooring Machine Operator Relationship Specialty Start Date End Date Betsy Naqvi MD [address] [place] [address] PCP - General Family Medicine 09/11/18 documented as of this encounter
--- OUTSIDE RECORDS SUMMARY | 2024-09-22 12:26 | XMS_ITS | Encounter Summary ---
Author Organization [employer] Address [address] [facility] 7t [place] [address] Care Team Providers Care Blow Molding Machine Operator Name Role Phone Betsy Naqvi MD Primary Care Provider [phone] Encounter Details Date Type Department Care Team (Late st Contact Info) Description 08/05/2024 Orders Only [facility] CHC MED & PEDS [address] [place] [address] Provider, MD Lv Social History Tobacco Use [...] [facility] MED & PEDS [address] [place] [address] documented as of this encounter Procedures Procedure [...] EST) Blood Venous blood specimen / Unknown [facility] Provider MD LAB BLOOD ORDERABLES Lorna l Result * Basic Metabolic Panel (08/04/2024 3:14 PM EST) Blood Venous blood specimen / Unknown Result [facility] Provider MD LAB BLOOD ORDERABLES Lorna l Result * Albumin (08/04/2024 3:14 PM EST) Blood Venous blood specimen / Unknown Result [facility] Provider MD LAB BLOOD ORDERABLES Lorna l Result * Urinalysis, Complete, with Reflex to Culture (08/04/2024 3:06 PM EST) Urine Result [facility] Provider LAB URINE ORDERABLES Lorna l Result * AMB HCG URINE TEST (08/04/2024 3:03 PM EST) Result [facility] Provider MD LAB BLOOD ORDERABLES Lorna l Result documented in this encounter Visit Diagnoses Not on filedocumented in this encounter Additional Health Concerns Assessment Noted Time PHQ-9 Depression Total Score: 0 03/13/20 23 9:01 AM EDT documented as of this encounter Care Teams Blow Molding Machine Operator Relationship Specialty Start Date End Date Betsy Naqvi MD [address] [place] [address] PCP - General Family Medicine 09/11/18 documented as of this encounter
--- OUTSIDE RECORDS SUMMARY | 2024-09-22 12:26 | XMS_ITS | Encounter Summary ---
Author Organization [employer] Address [address] [facility] 7t [place] [address] Care Team Providers Care Marine Cargo Specialist Name Role Phone Betsy Naqvi MD Primary Care Provider [phone] Encounter Details Date Type Department Care Team (Late st Contact Info) Description 08/07/2024 Orders Only [facility] CHC MED & PEDS [address] [place] [address] Provider, MD Lv Social History Tobacco Use [...] Upcoming Encounters Date Type Department Care Team ([facility] st Contact Info) Description 10/03/2024 9:30 AM EDT Clinical Support [facility] MED & PEDS [address] [place] [address] documented as of this encounter Procedures Procedure [...] documented as of this encounter Care Teams Marine Cargo Specialist Relationship Specialty Start Date End Date Betsy Naqvi MD [address] [place] [address] PCP - General Family Medicine 09/11/18 documented as of this encounter
--- OUTSIDE RECORDS SUMMARY | 2024-09-22 12:26 | XMS_ITS | Encounter Summary ---
Author Organization [employer] Address [address] [facility] 7t [place] [address] Care Team Providers Care Diamond Die Driller Name Role Phone Betsy Naqvi MD Primary Care Provider [phone] Encounter Details Date Type Department Care Team (Late st Contact Info) Description 08/04/2024 Orders Only [facility] CHC MED & PEDS [address] [place] [address] Provider, MD Lv Social History Tobacco Use [...] Description 10/03/2024 9:30 AM EDT Clinical Support [facility] CHC MED & PEDS [address] [place] [address] documented as of this encounter Procedures Procedure Name Priority Date/Time Associated Diagnosis Comments PROTHROMBIN TIME (PT)/PARTIAL THROMBOPLASTIN TIME PTT Routine 08/04/2024 11:08 AM EST ~PT, ~INR - ANTI [facility]AG [facility]INIC Routine 08/04/2024 11:08 AM EST CBC Routine 08/04/2024 11:08 AM EST documented in this encounter Results * CBC (08/04/2024 11:08 AM EST) Blood Venous blood specimen / Unknown [facility] Provider MD LAB BLOOD ORDERABLES Lorna l Result * ~PT, ~INR - ANTI COAG CLINIC (08/04/2024 11:08 AM EST) [facility] Provider MD LAB BLOOD ORDERABLES [...] documented as of this encounter Care Teams Diamond Die Driller Relationship Specialty Start Date End Date Betsy Naqvi MD [address] [place] [address] PCP - General Family Medicine 09/11/18 documented as of this encounter
--- OUTSIDE RECORDS SUMMARY | 2024-09-22 12:26 | XMS_ITS | Encounter Summary ---
Author Organization [employer] Address [address] [facility] 7[address] [place] [address] Care Team Providers Care Metal Hanging Supervisor Name Role Phone Betsy Naqvi MD Primary Care Provider [phone] Encounter Details Date Type Department Care Team (Late st Contact Info) Description 08/06/2024 Orders Only [facility] [address] [place], [place] [phone] Provider, MD Lv Social History Tobacco Use [...] [facility] [address] [place] [address] documented as of this encounter Procedures Procedure [...] documented as of this encounter Care Teams Metal Hanging Supervisor Relationship Specialty Start Date End Date Betsy Naqvi MD [address] [place] [address] PCP - General Family Medicine 09/11/18 documented as of this encounter
--- OUTSIDE RECORDS SUMMARY | 2024-09-22 12:26 | XMS_ITS | Clinical Summary ---
Author Organization [employer] Address [address] [place] [address] 7[address] [place] [address] Care Team Providers Care C Software Engineer Name Role Phone Betsy Naqvi MD Primary Care Provider [phone] Allergies Active Allergy Reactions Criticality Noted Date [...] protein shake or a protein bar or Kiswahili yogurt or cottage cheese to be consumed [...] Type Department Care Team Description 08/22/2024 Telephone [facility] [address] [place] [phone] Betsy Naqvi MD 08/22/2024 Orders Only [facility] [address] [place] [phone] Betsy Naqvi MD Subclinical hyperthyroidism (Primary Dx); History of thyroid nodule 08/21/2024 11:30 AM EST Office Visit [facility] [address] [place] [address] Betsy Naqvi MD 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); Encounter for immunization; Primary hypertension 08/21/2024 Orders Only [facility] [address] [place] [address] Betsy Naqvi MD 08/21/2024 Travel 08/20/2024 Telephone [facility] [address] [place] [address] Betsy Naqvi MD Chart Prep 08/07/2024 Orders Only [facility] [address] [place] [address] Lv Champagne MD 08/06/2024 Orders Only [facility] [address] [place] [address] Lv Champagne MD 08/05/2024 Orders Only [facility] [address] [place] [address] Lv Champagne MD 08/04/2024 Orders Only [facility] [address] [place], [place] [phone] Lv Champagne MD 07/08/2024 9:00 AM EST Office Visit [facility] [address] [place] [address] Tucker Hewitt MD 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, unspecified chronicity (Primary Dx) 07/02/2024 Telephone [facility] [address] [place] [address] Betsy Naqvi MD Med Refill from Last [...] Clinical Support [facility] [address] [place] [address] Health Maintenance Due Date Last Done Comments [...] HPV/Cotest 06/03/2026 06/03/2021 Lipid Panel 12/23/2028 12/24/2023, 02/20, 06/03/2021 Zoster Vaccines (1 of 2) 12/26/2037 [...] Procedure Name Priority Date/Time Associated Diagnosis Comments TSI (THYROID STIMULATING IMMUNOGLOBULIN) Routine 08/25/2024 11:36 AM EST Thyroid nodule T3, TOTAL Routine 08/25/2024 11:36 AM EST Subclinical hyperthyroidism History of thyroid nodule T4, FREE Routine 08/21/2024 11:46 AM EST [...] Recently Relevant to Health Maintenance Results * TSI (Thyroid Stimulating Immunoglobulin) (08/25/2024 11:36 AM EST) Thyroid Stimulating Immunoglobulin 103 <140 % baseline [facility] Comment: Thyroid stimulating immunoglobulins (TSI) can engagethe TSH receptors resulting in hyperthyroidism inGraves' disease patients. TSI levels can be useful inmonitoring the clinical outcome of Graves' disease aswell as assessing the potential for hyperthyroidismfrom maternal- transfer. TSI results greater thanor equal to (>=) 140% of the Reference Control areconsidered positive.NOTE:A serum TSH level greater than 350 micro-InternationalUnits/mL can interfere with the TSI bioassay andpotentially give false positive results.Patients who are and are suspected of havinghyperthyroidism should have both TSI and humanChorionic Gonadotropin(hCG) tests measured. A serumhCG level greater than 40,625 mIU/mL can interferewith the TSI bioassay and may give false negativeresults. In these patients it is recommended thata second TSI be obtained when the hCG concentrationfalls below 40,625 mIU/mL (usually after [id number]-sydyy gestation).The analytical performance characteristics of thisassay have been determined by [facility], [place]. ??The modificationshave not been cleared or approved by the FDA. ??Thisassay has been validated pursuant to the CLIAregulations and is used for clinical purposes.THIS TEST WAS PERFORMED AT:[facility] [place], [place] ??[id number] W. MASON,MD,PHD Blood Venous blood specimen / Unknown 08/25/2024 11:36 AM EST 08/25/2024 2:10 PM EST us Betsy Naqvi MD LAB BLOOD ORDERABLES Final Re sult [facility] [address] [place] [phone] * T3, Total (08/25/2024 11:36 AM EST) Pathologist [facility] T3, Total 76 76 - 181 ng/dL [facility] Comment:THIS TEST WAS PERFOR MED AT:[facility] [address] [id number] VICTOR MD Blood Venous blood specimen / Unknown 08/25/2024 11:36 AM EST 08/25/2024 2:10 PM EST Betsy Naqvi MD LAB BLOOD ORDERABLES Final Re sult Performing Organization Address [facility] de Phone Number [facility] [address] [place] [phone] * (ABNORMAL) TSH W/Reflex to FT4 (08/21/2024 11:46 AM EST) TSH reflex Free T4 0.10(L) 0.32 - 4.0 uIU/mL [facility] Blood Venous blood specimen / Unknown 08/21/2024 11:46 AM EST 08/21/2024 2:01 PM EST us Betsy Naqvi MD LAB BLOOD ORDERABLES Final Re sult Performing Organization Address [facility] Phone Number [facility] [address] [place] [phone] * T4, Free (08/21/2024 11:46 AM EST) Free T4 (Free Thyroxine) 1.00 0.71 - 1.85 ng/dL [facility] 08/21/2024 11:4 6 AM EST 08/21/2024 2:01 PM EST Betsy Naqvi MD LAB BLOOD ORDERABLES Final Re sult Performing Organization Address [facility] Co de Phone Number [facility] [address] [place] [phone] * Basic Metabolic Panel (08/06/2024 3:11 PM EST) Only the most recent of2 resultswithin the time period is included. Blood Venous blood specimen / Unknown Historical Provider LAB BLOOD ORDERABLES Lorna l Result * Surgical Pathology (08/05/2024 11:23 AM EST) Result [facility] Provider MD LAB PATHOLOGY ORDERABLES Final Result * ABO Group And RH Type (08/05/2024 10:43 AM EST) Blood Venous blood specimen / Unknown Result [facility] Provider MD LAB BLOOD BANK TEST ORDER SUSANA Final Result * MRSA Culture Screen (08/05/2024 10:21 AM EST) Swab Nasopharyngeal structure / Unknown Result [facility] LAB MICROBIOLOGY - GENERA L ORDERABLES Final Result * ABO Group (08/04/2024 3:22 PM EST) Result [facility] MD LAB BLOOD BANK TEST ORDER SUSANA Final Result * Antibody screen (08/04/2024 3:22 PM EST) Blood Venous blood specimen / Unknown Result [facility] MD LAB BLOOD ORDERABLES Lorna l Result * Albumin (08/04/2024 3:14 PM EST) Blood Venous blood specimen / Unknown Result [facility] MD LAB BLOOD ORDERABLES Lorna l Result * Urinalysis, Complete, with Reflex to Culture (08/04/2024 3:06 PM EST) Urine Result [facility] MD LAB URINE ORDERABLES Lorna l Result * AMB HCG URINE TEST (08/04/2024 3:03 PM EST) Result [facility] MD LAB BLOOD ORDERABLES Lorna l Result * Prothrombin Time (PT) and Partial Thromboplastin Time (PTT) (08/04/2024 11:08 AM EST) Blood Venous blood specimen / Unknown Result [facility] Provider LAB BLOOD ORDERABLES Lorna l Result * ~PT, ~INR - ANTI COAG CLINIC (08/04/2024 11:08 AM EST) Result [facility] Provider LAB BLOOD ORDERABLES Lorna l Result * CBC (08/04/2024 11:08 AM EST) Blood Venous blood specimen / Unknown Result [facility] LAB BLOOD ORDERABLES Lorna l Result * Hemoglobin A1c (12/24/2023 9:16 AM EDT) Blood Venous blood specimen / Unknown Result [facility] LAB BLOOD ORDERABLES Lorna l Result * Lipid Panel, Standard (12/24/2023 9:12 AM EDT) Blood Venous blood specimen / Unknown Result [facility] POINT OF CARE TEST ENTER/ EDIT ORDERABLES Final Result * HEPATITIS B PROFILE (07/28/2021 2:59 PM EST) Pathologist [facility] Hepatitis B Core Antibody Nonreactive Nonreactive [facility] Hepatitis B Surface Antibody REACTIVE Nonreactive [facility] Comment:REACTIVE: > 11.99 mI U/mL Hepatitis B Surface Antigen Negative Negative [facility] HIV AB/AG Nonreactive Nonreactive [facility] [...] detection of this assay. ?? [employer] HIV Ag/Ab Combo assay result and supplemental assay results should be interpreted in conjunction with the patient's clinical presentation, history and other laboratory results. ??If the results are inconsistent with clinical evidence, additional testing is suggested to confirm the result. 07/28/2021 2:59 PM EST Historical Provider MD HISTORICAL/NON ORDERABLE LABS Final Result Performing Organization Address [facility] Phone Number [facility] [address] [place] [address], * HEPATITIS C AB W/REFL TO HCV RNA, QN, PCR (06/27/2021 12:35 PM EST) HEPATITIS C ANTIBODY NON-REACT SU NON-REACT SU [facility] INDEX 0.02 <1.00 [facility] Comment: ?? HCV antibody was non-reactive. There is no laboratory ?? evidence of HCV infection. ?? In most cases, no further action is required. However, if recent HCV exposure is suspected, a test for HCV RNA (test code 99782) is suggested. ?? For additional information please refer to http://education.TelePharm/faq/TOP36z6 (This link is being provided for informational/ educational purposes only.) ?? 06/27/2021 12:3 5 PM EST Betsy Naqvi MD HISTORICAL/NON ORDERABLE LABS Final Result Performing Organization Address [facility] Phone Number [facility] [address] [place] [address], * THINPREP TIS PAP AND HPV mRNA E6/E7 REFLEX HPV 16,18/45 (06/03/2021 10:35 AM EST) Clinical Information: HPV+ LEEP 12 YRS AGO IN P.R [facility] COMMENT SEE COMMENT [facility]OUND[facility] ON [...] has been evaluated with computer assisted technology. [facility] Metal Rolling Mill Operator: SEE COMMENT [facility] Comment: [place], CT(ASCP) CT screening location: [address] ??[phone] HPV nRNA E6/E7 Not Detected Not Detected [facility] Comment: Methodology: [employer] Director-Mediated Amplification This assay detects E6/E7 viral messenger RNA (mRNA) from 14 high-risk HPV types (16,18,31,33,35,39,45,51,52,56,58,59,66,68). ? The analytical performance characteristics of this assay have been determined by [employer]. The modifications have not been cleared or approved by the FDA. This assay has been validated pursuant to the CLIA regulations and is used for clinical purposes. ?? For additional information, please refer to http://education.TelePharm/faq/ZLV692l2 (This link if provided for information/ educational purposes only.) Interpretation/Re sult: Negative for intraepithelial lesion or malignancy. [facility] LMP: 05/2021 [facility] Prev. BX: NONE GIVEN [facility] Prev. PAP: 2,018 [facility] SOURCE: [employer]ervix [facility] Statement Of Adequacy: SEE COMMENT [facility] Comment: Satisfactory for evaluation. Endocervical/transformation zone component absent. 06/03/2021 10:3 5 AM EST us Betsy Naqvi MD LAB PATHOLOGY ORDERABLES Lorna clements Result [facility] [address] from Last 3 Months or Most Recently Relevant to Health Maintenance Insurance [employer] C3 * Guarantor: Mary Gonzalez Account Type Relation to Patient Date of Phone Billing Address Personal/[place] [address] * Guarantor: Mary Gonzalez Account Type Relation to Patient Date of Phone Billing Address Personal/[place] [address] Care Teams C Software Engineer Relationship Specialty Start Date End Date Betsy Naqvi MD [address] [place] [address] ANNMARIE Peoples PCP - General Family Medicine 09/11/18
--- OUTSIDE RECORDS SUMMARY | 2024-09-22 12:26 | XMS_ITS | Encounter Summary ---
Author Organization [employer] Address [address] [place] [address] [address]t [place] [address] Care Team Providers Care Mechanical Equipment Sales Engineer Name Role Phone Betsy Naqvi MD Primary Care Provider [phone] Encounter Details Date Type Department Care Team (Late st Contact Info) Description 02/14/2024 Orders Only [facility] [address] [place], [place] [phone] Provider, MD Lv Social History Tobacco Use [...] 9:30 AM EDT Clinical Support [facility] [address] [place] [address] documented as of this encounter Procedures Procedure [...] documented as of this encounter Care Teams Mechanical Equipment Sales Engineer Relationship Specialty Start Date End Date Betsy Naqvi MD [address] [place] [address] PCP - General Family Medicine 09/11/18 documented as of this encounter
--- OUTSIDE RECORDS SUMMARY | 2024-09-22 12:26 | XMS_ITS | Encounter Summary ---
Author Organization [employer] Address [address] [facility] [address]t [place] [address] Care Team Providers Care Tobacco Classer Name Role Phone Betsy Naqvi MD Primary Care Provider [phone] Encounter Details Date Type Department Care Team (Late st Contact Info) Description 2023 Orders Only [facility] [address] [place] [address] Provider, MD Lv Social History Tobacco Use [...] [facility] [address] [place] [address] documented as of this encounter Procedures Procedure [...] documented as of this encounter Care Teams Tobacco Classer Relationship Specialty Start Date End Date Betsy Naqvi MD [address] [place] [address] PCP - General Family Medicine 09/11/18 documented as of this encounter
--- OUTSIDE RECORDS SUMMARY | 2024-09-22 12:26 | XMS_ITS | Encounter Summary ---
Author Organization [employer] Address [address] [facility] [address] [place] [address] Care Team Providers Care Patroller Name Role Phone Betsy Naqvi MD Primary Care Provider [phone] Encounter Details Date Type Department Care Team (Late st Contact Info) Description 12/28/2023 Orders Only [facility] [address] [place], [place] [phone] Provider, MD Lv Social History Tobacco Use [...] Description 10/03/2024 9:30 AM EDT Clinical Support [facility] [address] [place] [address] documented as of this encounter Procedures Procedure [...] documented as of this encounter Care Teams Patroller Relationship Specialty Start Date End Date Betsy Naqvi MD [address] [place] [address] PCP - General Family Medicine 09/11/18 documented as of this encounter
--- OUTSIDE RECORDS SUMMARY | 2024-09-22 12:26 | XMS_ITS | Encounter Summary ---
Author Organization [employer] Address [address] [facility] [address] [place] [address] Care Team Providers Care Plant Supervisor Name Role Phone Betsy Naqvi MD Primary Care Provider [phone] Encounter Details Date Type Department Care Team (Late st Contact Info) Description 02/13/2024 Orders Only [facility] [address] [place], [place] [phone] Provider, MD Lv Social History Tobacco Use [...] 9:30 AM EDT Clinical Support [facility] [address] [place] [address] documented as of this encounter Procedures Procedure [...] documented as of this encounter Care Teams Plant Supervisor Relationship Specialty Start Date End Date Betsy Naqvi MD [address] [place] [address] PCP - General Family Medicine 09/11/18 documented as of this encounter
== END 2024-09-22 10:40 | disposition home or self-care (01) ==
LOC: HO.US 10:39
PROVIDERS: PCP Pediatrics; Visit Provider Pediatrics
DX: E05.90 Thyrotoxicosis, unspecified without thyrotoxic crisis or storm (principal); Z86.39 Personal history of other endocrine, nutritional and metabolic disease
CPT/HCPCS: 76536

== ENCOUNTER → 2024-09-22 10:40 | Outpatient (BNV) | payer MEDICAID, SELFPAY | PROVIDERS: PCP Pediatrics; Visit Provider Radiology Diagnostic Radiology | DX: E05.90 Thyrotoxicosis, unspecified without thyrotoxic crisis or storm (principal) | CPT/HCPCS: 76536 ==

== ENCOUNTER 2025-01-03 06:16 | Emergency (ER) | payer MEDICAID, SELFPAY ==
--- NOTE | ~2025-01-03 | CT_ITS ---
CLINICAL HISTORY: n v abdominal pain s p gastric sleeve Exam: CT abdomen and pelvis with intravenous contrast. Comparison: None. Findings: CT abdomen: Lung bases are clear. No acute bony lesions. Postsurgical change of the stomach. No dilated small bowel. No free fluid or free air. Prominent Melanie's lobe of the liver. No focal hepatic lesion. Main portal vein is patent. Moderate distention of the gallbladder without calcified gallstone or gallbladder wall thickening. Spleen, pancreas, and adrenal glands are unremarkable. Symmetric enhancement of the kidneys without mass or hydronephrosis. No free fluid or free air. CT pelvis: Appendix is normal. No focal areas of colonic wall thickening are evident. Fluid-filled nondilated loops of small bowel are seen throughout the abdomen and pelvis. Liquid stool seen within the cecum and ascending colon. Small mesenteric lymph nodes are seen within the pelvis all measuring less than 5 mm in short axis. Mild induration within the central mesenteric fat. Small amount of free fluid in the pelvis. No free air. Mild heterogeneity of the uterus suggests uterine fibroids. Impression: 1. No findings of bowel obstruction. 2. Fluid-filled small bowel with liquid stool in the proximal colon suggests infectious or inflammatory enterocolitis. 3. Likely uterine fibroids. This document has been electronically signed by: Hiram Lopes MD on 01/03/2025 11:10:48
[2025-01-03 06:20] VITALS: BP 101/65; PULSE 72; RESP 16; TEMP 37.5; O2SAT 98; BMI 25.2
[2025-01-03 06:52] LABS: MANUAL DIFF FLAG NO
[2025-01-03 06:53] LABS: Basophils Percent Auto 0.5 % (0-2); Eosinophils Percent Auto 0.7 % (0-4); Hematocrit 38.9 % (37.0-47.0); Imm Gran Abs Auto 0.02 X10*3/uL (0.00-0.03); Imm Gran Pct Auto 0.5 % (0.0-0.4); Lymphocytes Absolute Auto 0.9 X10*3/uL (1.2-4.9); Lymphocytes Percent Auto 20.7 % (20-40); Mean Corpuscular HGB Conc 33.4 g/dl (31.0-35.0); Mean Corpuscular Volume 80.7 fL (80.0-98.0); Mean Platelet Volume 9.4 fL (9.4-12.3); Monocytes Absolute Auto 0.4 X10*3/uL (0.1-1.2); Monocytes Percent Auto 10.4 % (2-11); Neutrophils Absolute Auto 2.8 x10*3/uL (2.0-8.3); Neutrophils Percent Auto 67.2 % (45-73); Platelet Count 201 X10*3/uL (160-400); Red Blood Count 4.82 X10*6/uL (4.20-5.50); Red Cell Distribution Width 14.3 % (11.0-16.0); White Blood Count 4.2 X10*3/uL (4.8-10.8)
--- NOTE | 2025-01-03 07:03 | ED_ITS ---
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 She now feels weak and dehydrated. NO GIB symptoms, no abx use, travel, sick contacts. No fevers. She does not have pain. She has never had this before. No new med changes. MD elicited complaint: nausea, vomiting and diarrhea Onset (ago): day(s) (3) Description of vomiting: watery Description of diarrhea: watery Associated nausea: Yes Associated abdominal pain: No Severity: moderate Exacerbating factors: eating Relieving factors: none Associated symptoms: loss of appetite, malaise, nausea/vomiting and weakness Related Data Home Medications ?Medication ?Instructions ?Recorded ?Confirmed albuterol sulfate 90 mcg/actuation 0 mcg inhalation 07/28/21 aerosol inhaler (ProAir HFA) duloxetine 20 mg capsule,delayed 20 mg PO DAILY 07/28/21 release fluticasone propionate 110 2 puff inhalation BID 07/28/21 mcg/actuation HFA aerosol inhaler (Flovent HFA) ergocalciferol (vitamin D2) 1,250 1,250 mcg PO QWEEK 11/27/23 mcg (50,000 unit) capsule fluticasone propionate 50 1 - 2 spray intranasal DAILY PRN 11/27/23 mcg/actuation nasal spray,suspension Previous Rx's ?Medication ?Instructions ?Recorded benzonatate 100 mg capsule 100 mg PO TID PRN cough #10 caps 03/14/21 (Bertha Jean) cyclobenzaprine 10 mg tablet 10 mg PO TID PRN muscle spasm #10 03/14/21 tabs ibuprofen 600 mg tablet 600 mg PO Q8H PRN pain #15 tabs 03/14/21 famotidine 40 mg tablet (Pepcid) 40 mg PO BEDTIME #30 tabs 07/28/21 naproxen 500 mg tablet 500 mg PO BID 7 days #14 tabs 02/01/22 doxycycline monohydrate 100 mg 100 mg PO BID 10 days #20 tabs 05/04/22 tablet ibuprofen 800 mg tablet 800 mg PO Q8H PRN pain #14 tabs 05/04/22 oxycodone 5 mg tablet 5 mg PO Q6H PRN pain #10 tabs 05/04/22 cetirizine 10 mg capsule (Zyrtec) 10 mg PO DAILY #10 caps 11/30/23 oxymetazoline 0.05 % nasal mist 2 spray intranasal Q12H PRN nasal 11/30/23 (Afrin (oxymetazoline)) congestion 3 days #15 mL ondansetron 4 mg disintegrating 4 mg PO Q8H PRN nausea and 01/03/25 tablet vomiting #20 tabs Allergies Allergy/AdvReac Type Severity Reaction Status Date / Time shellfish derived Allergy Severe SWELLING Verified 01/03/25 06:20 [SHELLFISH DERIVED] Review of Systems 2 Review of Systems: Constitutional : No Weight loss, No Fever, No Chills ENT/Mouth : No sore throat, No Rhinorrhea Eyes: No Swelling, No Redness Cardiovascular : No Chest Pain, No SOB, NoEdema Respiratory : No Cough, No Sputum, No Wheezing Gastrointestinal : Positive Nausea, Positive Vomiting, positive Diarrhea, no abdominal Pain, No Hematochezia, No Melena Genitourinary : No Dysuria, No Urinary Frequency, No Hematuria, No Urgency Musculoskeletal : No joint pain, No Myalgias, No Joint Swelling Skin : No Skin Lesions, No rash Neuro : No Weakness, No Numbness, No Dizziness, No Headache All other systems reviewed and are negative. Gastrointestinal: Gastrointestinal: Reports nausea PMFSH Past Medical History Attestation statement: The following information was validated with the patient. Source: old records reviewed Medical History GERD (gastroesophageal reflux disease) COVID-19 Surgical History H/O gastric sleeve Family History Family History Mother No problems noted. Father Hypertension Diabetes Heart problem Daughter No problems noted. Son No problems noted. Social History Social History Alcohol intake: current Alcohol intake frequency: holidays/special occasions only Patient Tobacco Use Status: Never used Tobacco Smoked in Last 30 Days: No Use of substances other than those prescribed or required for medical reasons: No Advance Directives: No Advance Directives Information Provided: Yes Patient : No Physical Exam 2 Vital Signs: Vital Signs: Last Vital Signs Temp 98.4 F 01/03/25 07:58 Pulse 57 01/03/25 07:58 Resp 118 H 01/03/25 07:58 BP 97/65 01/03/25 07:58 Pulse Ox 100 01/03/25 07:58 O2 Del Method Room Air 01/03/25 07:58 BMI result Body Mass Index 25.2 Appearance: Alert. Oriented X3. No acute distress. Eyes: Pupils equal, round and reactive to light. ENT: Pharynx mild dry MM Neck: Normal inspection. Neck supple. CVS: Normal heart rate and rhythm. Pulses normal. Respiratory: No respiratory distress. Breath sounds normal. Abdomen: Soft and nontender. Skin: Skin warm and dry. pale skin color. Normal skin turgor. Extremities: No lower extremity edema. Neuro: Oriented X 3. No motor deficit. No sensory deficit. CN2-12 intact Medications Administered Discontinued Medications Generic Name Dose Route Start Last Admin Trade Name Freq PRN Reason Stop Dose Admin Lactated Ringer's 1,000 mls @ 999 mls/hr 01/03/25 07:29 01/03/25 09:21 Lr IV 01/03/25 08:29 Infused .Q1H1M ONE Infusion Lactated Ringer's 1,000 mls @ 999 mls/hr 01/03/25 07:29 01/03/25 09:22 Lr IV 01/03/25 08:29 Infused .Q1H1M ONE Infusion Iohexol 100 ml 01/03/25 10:32 01/03/25 10:33 Iohexol 350 Mg/Ml 100 Ml Infus..Btl IV 01/03/25 10:33 85 ml ONCE ONE Administration Ondansetron HCl 4 mg 01/03/25 07:29 01/03/25 07:56 Ondansetron Hcl 4 Mg/2 Ml Vial IVPUSH 01/03/25 07:30 4 mg ONCE ONE Administration Medical Decision Making Medical Decision Making MDM Narrative: 39 yo female with PMH of obesity s/p gastric sleeve in July at [facility] now here with 3 days of n/v and diarrhea without pain to palpation. She has not vomited since Sunday. She feels tired and weak now. She has no GIB symptoms, no risk factors of sick contacts, abx use. She has not had a known fever. At this time no pain to palpation. She will need labs, CT scan for SBO/hernia. IVF x 2L, IV tylenol for pain and repeat assessments. Differential Diagnosis Differential Diagnoses: The differential diagnosis associated with the presentation includes enteritis, SBO, gastritis, viral syndrome Admission/Observation Consideration of admission/observation: Escalation of care including admission/observation considered feels much better labs reassuring CT scan no obstruction tolerating PO Lab Data MDM Lab Attestation statement: I reviewed the patient's lab results. 01/03/25 06:46 01/03/25 06:45 Labs: Lab Results 01/03/25 01/03/25 01/03/25 Range/Units 06:45 06:46 09:46 WBC 4.2 L (4.8-10.8) X10*3/uL RBC 4.82 (4.20-5.50) X10*6/uL Hgb 13.0 (12.0-16.0) g/dl Hct 38.9 (37.0-47.0) % MCV 80.7 (80.0-98.0) fL MCH 27.0 (27.0-33.0) pg MCHC 33.4 (31.0-35.0) g/dl RDW 14.3 (11.0-16.0) % Plt Count 201 D (160-400) X10*3/uL MPV 9.4 (9.4-12.3) fL Immature Gran % (Auto) 0.5 H (0.0-0.4) % Neut % (Auto) 67.2 (45-73) % Lymph % (Auto) 20.7 (20-40) % Bradford % (Auto) 10.4 (2-11) % Eos % (Auto) 0.7 (0-4) % Baso % (Auto) 0.5 (0-2) % Lymph # (Auto) 0.9 L (1.2-4.9) X10*3/uL Bradford # (Auto) 0.4 (0.1-1.2) X10*3/uL Eos # (Auto) 0.0 (0.0-0.4) X10*3/uL Baso # (Auto) 0.0 (0.0-0.2) X10*3/uL Abs Immat Gran (auto) 0.02 (0.00-0.03) X10*3/uL Absolute Neuts (auto) 2.8 (2.0-8.3) x10*3/uL Absolute Nucleated RBC 0.000 (0.0-0.012) X10*3/uL Nucleated RBC % (auto) 0.0 (0.0-0.2) /100WBC Sodium 138 (135-145) mmol/L Potassium 3.7 (3.3-5.1) mmol/L Chloride 104 (96-108) mmol/L Carbon Dioxide 26 (22-29) mmol/L Anion Gap 12 (12-20) BUN 9 (9-16) mg/dL Creatinine 0.91 (0.5-1.4) mg/dL Estim Creat Clear Calc 79.4 Estimated GFR > 60 Random Glucose 85 (60-115) mg/dL Calcium 9.2 D (8.4-10.2) mg/dL Total Bilirubin 0.3 (0.0-1.0) mg/dL AST 27 (5-31) U/L ALT 21 (0-31) U/L Alkaline Phosphatase 53 (39-117) U/L Total Protein 7.0 (6.5-8.0) g/dL Albumin 4.5 (3.5-5.0) g/dL Lipase 11 (8-78) U/L Urine Color Yellow Urine Appearance Clear Urine pH 6.5 (5.0-9.0) Ur Specific Caldwell <= 1.005 (1.005-1.025) Urine Protein Negative (Neg-Trace) mg/dL Urine Glucose (UA) Negative (Negative) mg/dL Urine Ketones Negative (Negative) mg/dL Urine Blood Trace H (Negative) Urine Nitrite Negative (Negative) Ur Leukocyte Esterase Negative (Negative) Urine RBC 0-2 (0-2) /HPF Urine WBC 0-5 (0-5) /HPF Ur Squamous Epith Cells 0-2 (0-2) /HPF Urine Bacteria None Seen (None Seen) Hyaline Casts 0-2 (0-2) /LPF Urine Test NEGATIVE (NEGATIVE) Influenza Type A (PCR) NEGATIVE (Negative) Influenza Type B (PCR) NEGATIVE (Negative) RSV RNA Qual (PCR) NEGATIVE (Negative) SARS-CoV-2 RNA (RT-PCR) NEGATIVE (Negative) S. pyogenes GrpA ANUSHA Negative (Negative) Independent Interpretation I performed an independent interpretation of an: CT Scan (enteritis) Radiology Impression Discussion of test interpretation with radiology: I have reviewed the radiologist's reading. External Record Review External record reviewed: Outpatient record Prescription Management I considered prescription management with: Other Discharge Plan Discharge Clinical Impression: Nausea vomiting and diarrhea Patient Disposition: Home, Self-Care Instructions: Acute Nausea and Vomiting (ED), Acute Diarrhea (ED) Additional Instructions: drink plenty of fluids stay hydrated return for any worsening symptoms or concerns such as fevers, worsening pain, bleeding, unable to eat or drink I would let your surgeon know you were seen in our ED - call Sunday 1. No findings of bowel obstruction. 2. Fluid-filled small bowel with liquid stool in the proximal colon suggests infectious or inflammatory enterocolitis. 3. Likely uterine fibroids. Prescriptions: New ondansetron 4 mg tablet,disintegrating 4 mg PO Q8H PRN (Reason: nausea and vomiting) Qty: 20 0RF No Action benzonatate [Tessalon Perles] 100 mg capsule 100 mg PO TID PRN (Reason: cough) Qty: 10 0RF cyclobenzaprine 10 mg tablet 10 mg PO TID PRN (Reason: muscle spasm) Qty: 10 0RF ibuprofen 600 mg tablet 600 mg PO Q8H PRN (Reason: pain) Qty: 15 0RF naproxen 500 mg tablet 500 mg PO BID 7 Days Qty: 14 0RF Rx Instructions: Do NOT start until 02/02/2022 doxycycline monohydrate 100 mg tablet 100 mg PO BID 10 Days Qty: 20 0RF ibuprofen 800 mg tablet 800 mg PO Q8H PRN (Reason: pain) Qty: 14 0RF oxycodone 5 mg tablet 5 mg PO Q6H PRN (Reason: pain) Qty: 10 0RF Rx Instructions: Partial Fill upon patient request. Afrin (oxymetazoline) 0.05 % mist 2 spray intranasal Q12H PRN (Reason: nasal congestion) 3 Days Qty: 15 0RF Zyrtec 10 mg capsule 10 mg PO DAILY Qty: 10 0RF Flovent HFA 110 mcg/actuation HFA aerosol inhaler 2 puff inhalation BID duloxetine 20 mg capsule,delayed release(DR/EC) 20 mg PO DAILY albuterol sulfate [ProAir HFA] 90 mcg/actuation HFA aerosol inhaler 0 mcg inhalation famotidine [Pepcid] 40 mg tablet 40 mg PO BEDTIME Qty: 30 6RF ergocalciferol (vitamin D2) 1,250 mcg (50,000 unit) capsule 1,250 mcg PO QWEEK fluticasone propionate 50 mcg/actuation spray,suspension 1 - 2 spray intranasal DAILY PRN Print Language: Marshallese
[2025-01-03 07:07] LABS: Alanine Aminotransferase 21 U/L (0-31); Albumin Level 4.5 g/dL (3.5-5.0); Alkaline Phosphatase 53 U/L (39-117); Anion Gap 12 (12-20); Aspartate Amino Transferase 27 U/L (5-31); Bilirubin Total 0.3 mg/dL (0.0-1.0); Blood Urea Nitrogen 9 mg/dL (9-16); Calcium 9.2 mg/dL (8.4-10.2); Carbon Dioxide 26 mmol/L (22-29); Chloride 104 mmol/L (96-108); Creatinine Clr Calc Pharmacy 79.4; Estimated Glomerular Filt Rate > 60; Glucose Random 85 mg/dL (60-115); Potassium 3.7 mmol/L (3.3-5.1); Sodium 138 mmol/L (135-145)
--- OUTSIDE RECORDS SUMMARY | 2025-01-03 07:08 | XMS_ITS | Encounter Summary ---
Author Organization [employer] Address [address] [facility] [address]t [place] [address] Care Team Providers Care Medical Administrator Name Role Phone Betsy Naqvi MD Primary Care Provider [phone] Encounter Details Date Type Department Care Team ([facility] st Contact Info) Description 2023 Orders Only [facility] [address] [place] [address] Provider, MD Lv Social History Tobacco Use [...] as of this encounter Plan of Treatment Not on file documented as of this encounter Procedures Procedure [...] documented as of this encounter Care Teams Medical Administrator Relationship Specialty Start Date End Date Betsy Naqvi MD [address] [place] [id number] PCP - General Family Medicine 09/11/18 documented as of this encounter
[2025-01-03 07:11] LABS: IDNOW Serial# 6674DD1D; Strep A Nucleic Acid Negative (Negative)
[2025-01-03 07:32] LABS: Influenza A PCR NEGATIVE (Negative); Influenza B PCR NEGATIVE (Negative); Resp Syncy Virus RNA Qual PCR NEGATIVE (Negative); SARS COV2 PCR INHOUSE NEGATIVE (Negative)
[2025-01-03] MEDS: Lactated Ringers 1,000 ML 999 ML IV ×2 (07:54)
[2025-01-03] MEDS: ondansetron HCL 4 MG/2 ML VIAL IVPUSH (07:56)
[2025-01-03 07:58] VITALS: BP 97/65; PULSE 57; RESP 18; TEMP 36.9; O2SAT 100
[2025-01-03 08:49] LABS: Lipase 11 U/L (8-78)
[2025-01-03 09:56] LABS: Appearance Urine Clear; Color Urine Yellow; Glucose Urine UA Negative (Negative); Leukocyte Esterase Urine Negative (Negative); Nitrite Urine Negative (Negative); PH 6.5 (5.0-9.0); Specific Gravity - Urine <= 1.005 (1.005-1.025); UMIC TRIGGER UACC YES; Urine Blood Trace (Negative); Urine Ketones Negative (Negative); Urine Protein Negative (Neg-Trace)
[2025-01-03 09:59] LABS: Bacteria Urine None Seen (None Seen); Hyaline Casts Urine 0-2 /LPF (0-2); RBC Urine 0-2 /HPF (0-2); Squamous Epithelial Cell Urine 0-2 /HPF (0-2); WBC Urine 0-5 /HPF (0-5)
[2025-01-03 10:01] LABS: UPreg QC Valid YES; Urine Pregnancy NEGATIVE (NEGATIVE)
[2025-01-03] MEDS: iohexoL 350 MG/ML 100 ML INFUS..BTL IV (10:33)
[2025-01-03 11:53] VITALS: BP 113/74; PULSE 60; RESP 13; TEMP 36.3; O2SAT 100
[2025-01-03 11:59] VITALS: BP 113/74; PULSE 60; RESP 13; TEMP 36.3; O2SAT 100
== END 2025-01-03 12:01 | disposition home or self-care (01) ==
PROVIDERS: Emergency Provider Emergency Medicine; PCP Pediatrics
DX: R11.2 Nausea with vomiting, unspecified (principal); R19.7 Diarrhea, unspecified; R10.9 Unspecified abdominal pain; Z03.818 Encounter for observation for suspected exposure to other biological agents ruled out; Z98.84 Bariatric surgery status
CPT/HCPCS: 0241U; 74177; 80053; 81001; 81025; 83690; 85025; 87651; 96361; 96374; 99284; J2405; J7120; Q9967

== ENCOUNTER → 2025-01-03 07:29 | Outpatient (BNV) | payer MEDICAID, SELFPAY | PROVIDERS: Emergency Provider Emergency Medicine; PCP Pediatrics; Visit Provider Radiology Diagnostic Radiology | DX: K63.89 Other specified diseases of intestine (principal) | CPT/HCPCS: 74177 ==

== ENCOUNTER 2025-05-12 10:46 | Outpatient (REF) | payer MEDICAID, SELFPAY ==
--- NOTE | ~2025-05-12 | XR_ITS ---
EXAMINATION: XR RIBS, LEFT CLINICAL INFORMATION: PAIN COMPARISON: Previous chest x-ray February 2021 and August 2017 TECHNIQUE: 3 views of the left ribs and one view of the chest were obtained. FINDINGS: Lungs are clear. No consolidation, pneumothorax, or pleural effusion. The cardiomediastinal silhouette and pulmonary vasculature are normal. There is increased sclerosis of the inferior posterior left fourth rib. This is similar to prior exams going back to 2018 and may represent a bone island. Ribs are otherwise unremarkable. No fractures are identified. XR/XR ribs LT min 3V w CXR1V IMPRESSION: No evidence for acute disease in the chest. Increased sclerosis of the left inferior posterior fourth rib similar to old chest x-rays going back to 2018. This probably represents a bone island. No rib fracture. Electronically signed by: Clau Cantu MD 05/12/2025 12:20 PM EDT
--- OUTSIDE RECORDS SUMMARY | 2025-05-12 09:40 | XMS_ITS | Encounter Summary ---
Author Organization [employer] Address [address] [facility] [address] [place] [address] Care Team Providers Care Grip Assembler Name Role Phone Betsy Naqvi MD Primary Care Provider [phone] Reason for Visit * Reason Comments Fall Encounter Details Date Type Department Care Team ([facility] Contact Info) Description 05/12/2025 9:40 AM EDT Office Visit [facility] [address] [address] Chest wall pain (Primary Dx); Chest injury, initial encounter Social History Tobacco Use Types Packs/Day Years [...] Sign Reading Time Taken Comments Blood Pressure 120/79 05/12/2025 9:55 AM EDT Pulse 79 05/12/2025 9:55 AM EDT Temperature 36.7 C (98 F) 05/12/2025 9:55 AM EDT Respiratory Rate 16 05/12/2025 9:55 AM EDT Oxygen Saturation 100% 05/12/2025 9:55 AM EDT Inhaled Oxygen Concentration - - Weight 66.2 kg (146 lb) 05/12/2025 9:55 AM EDT Height - - Body Mass Index 25.06 03/12/2025 1:12 PM EDT documented in this encounter Plan of Treatment Scheduled Orders Name Type Priority Associated Diagnoses Orde r Schedule XR Ribs 2 Views Left with Chest Anteroposterior Imaging Routine Chest wall pain Chest injury, initial encounter Expected: 05/12/2025, Expires: 05/12/2026 documented as of this encounter Visit Diagnoses Diagnosis Chest wall pain- Primary Painful respiration Chest injury, initial encounter documented in this encounter Additional Health Concerns Assessment Noted Time PHQ-9 Depression Total Score: 0 03/13/20 23 9:01 AM EDT documented as of this encounter Care Teams Grip Assembler Relationship Specialty Start Date End Date Betsy Naqvi MD [address] [place] [address] PCP - General Family Medicine 09/11/18 documented as of this encounter
--- OUTSIDE RECORDS SUMMARY | 2025-05-12 13:02 | XMS_ITS | Encounter Summary ---
Author Organization [employer] Address [address] [place] [address] 7[address] [place] [address] Care Team Providers Care Dry Mill Worker Name Role Phone Betsy Naqvi MD Primary Care Provider [phone] Encounter Details Date Type Department Care Team (Late st Contact Info) Description 02/13/2024 Orders Only [facility] [address] [place], [place] [id number] Provider, MD Lv Social History Tobacco Use [...] documented as of this encounter Care Teams Dry Mill Worker Relationship Specialty Start Date End Date Betsy Naqvi MD [address] [place] [address] PCP - General Family Medicine 09/11/18 documented as of this encounter
--- OUTSIDE RECORDS SUMMARY | 2025-05-12 13:02 | XMS_ITS | Encounter Summary ---
Author Organization [employer] Address [address] [place] [address] [address] [place] [address] Care Team Providers Care Medicare Sales Executive Name Role Phone Betsy Naqvi MD Primary Care Provider [phone] Encounter Details Date Type Department Care Team (Late st Contact Info) Description 08/06/2024 Orders Only [facility] [address] [place], [place] [phone] Provider, MD Lv Social History Tobacco Use [...] documented as of this encounter Care Teams Medicare Sales Executive Relationship Specialty Start Date End Date Betsy Naqvi MD [address] [place] [address] PCP - General Family Medicine 09/11/18 documented as of this encounter
--- OUTSIDE RECORDS SUMMARY | 2025-05-12 13:02 | XMS_ITS | Encounter Summary ---
Author Organization [employer] Address [address] [place] [address] [address] [place] [address] Care Team Providers Care Beam Department Supervisor Name Role Phone Betsy Naqvi MD Primary Care Provider [phone] Encounter Details Date Type Department Care Team (Late st Contact Info) Description 12/28/2023 Orders Only [facility] [address] [place], [place] [phone] Provider, MD Lv Social History Tobacco Use [...] documented as of this encounter Care Teams Beam Department Supervisor Relationship Specialty Start Date End Date Betsy Naqvi MD [address] [place] [id number] PCP - General Family Medicine 09/11/18 documented as of this encounter
--- OUTSIDE RECORDS SUMMARY | 2025-05-12 13:02 | XMS_ITS | Encounter Summary ---
Author Organization [employer] Address [address] [facility] 7t [place] [address] Care Team Providers Care Production Crew Supervisor Name Role Phone Betsy Naqvi MD Primary Care Provider [phone] Encounter Details Date Type Department Care Team ([facility] st Contact Info) Description 2023 Orders Only [facility] [address] [place] [address] Provider, MD Lv Social History Tobacco Use [...] documented as of this encounter Care Teams Production Crew Supervisor Relationship Specialty Start Date End Date Betsy Naqvi MD [address] [place] [id number] PCP - General Family Medicine 09/11/18 documented as of this encounter
--- OUTSIDE RECORDS SUMMARY | 2025-05-12 13:02 | XMS_ITS | Encounter Summary ---
Author Organization [facility] Address [address] [facility] [address] [place] [address] Phone Care Team Providers Care Bottom Precipitator Operator Name Role Phone Betsy Naqvi MD Primary Care Provider [phone] Encounter Details Date Type Department Care Team ([facility] st Contact Info) Description 08/05/2024 Procedure Pass OR Admitting Dept - Virtual Department [address] [place] [address] Social History Tobacco Use Types Packs/Day Years Used Date Smoking Tobacco: Never Smokeless Tobacco: Never Alcohol Use Standard Drinks/Week Comments Yes 6 (1 standard drink = 0.6 oz pur e alcohol) Education Answer Date Recorded Are you interested in more education? Not on milan e 10/12/2023 Are you concerned about learning? Not on file 10/12/2023 No 10/12/2023 No 10/12/2023 Food Answer Date Recorded Within the past 6 months we worried whether our food would run out before we got money to buy more. Never True 08/06/2024 Within the past 6 months the food we bought just didn't last and we didn't have enough money to get more. Never True Residential Stability Answer Date Recor ded What is your housing situation today? I have esha sing 08/06/2024 How many times have you move d in the past 12 months? Zero (I did not move) 08/06/2024 Paying for Meds Answer Date Recorded Do you have trouble paying for medicines? No 08/06/2024 Paying Utility Bills Answer Date Record ed Do you have trouble paying your heating or elect ricity bill? No 08/06/2024 Transportation Answer Date Recorded Has the lack of transportati on kept you from medical appointments or from getting medications? No 08/06/2024 Digital Access Answer Date Recorded No 08/06/2024 Yes 08/06/2024 Do you have reliable internet access at home? Ye s 08/06/2024 Do you have a device (e.g., phone, tablet, computer) with a working camera? Yes 08/06/2024 Intimate Partner Violence Answer Date R ecorded Are you denied basic needs s uch as food, clothing, or medical care? No 08/05/2024 In the past 12 months have y ou been in a relationship with a person who hurts, threatens, or tries to control you? No 08/05/2024 Are you denied basic needs s uch as food, clothing, or medical care? No 08/05/2024 In the past 12 months have y ou been in a relationship with a person who hurts, threatens, or tries to control you? 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 Wish to be (Past 1 Month) No 025 4:40 PM Kaila Shah, CROW 2. Non-Specific Active Suici nixon Thoughts (Past 1 Month) No 08/05/2024 4:40 PM George Shah RN 6. Suicidal Behavior (Lifetime) No 4:40 PM Kaila Shah, RN documented as of this encounter Plan of Treatment Upcoming Encounters Date Type Department Care Team (Late st Contact Info) Description 06/01/2025 10:00 AM EST Office Visit [facility] [address] [place] [address] Yulisa Rosario MD [address] [facility], 2nd [place] [address] [email or web address] documented as of this encounter Visit Diagnoses Not on filedocumented in this encounter Additional Health Concerns Assessment Noted Time PHQ-2 Depression Total Score: 0 01/01/20 24 12:06 PM EDT documented as of this encounter Care Teams Bottom Precipitator Operator Relationship Specialty Start Date End Date Betsy Naqvi MD [address] [place] [id number] PCP - General Internal Medicine 10/26/23 documented as of this encounter Additional Source Comments The information contained in this document represents components of the legal health record. It is not the complete legal health record.[facility]
--- OUTSIDE RECORDS SUMMARY | 2025-05-12 13:02 | XMS_ITS | Encounter Summary ---
Author Organization [employer] Address [address] [facility] [address], [place] [address] Care Team Providers Care Unit Control Clerk Name Role Phone Betsy Naqvi MD Primary Care Provider [phone] Reason for Visit * Reason Onset Date Comments Paperwork/Forms 01/16/2024 Encounter Details Date Type Department Care Team ([facility] st Contact Info) Description 01/16/2024 Telephone [facility] [address] [place] [address] Betsy Naqvi MD [address] [facility] [place] [address] Paperwork/Forms Social History Tobacco Use Types Packs/Day [...] documented in this encounter Plan of Treatment Not on file documented as of this encounter Visit Diagnoses Not on filedocumented in this encounter Additional Health Concerns Assessment Noted Time PHQ-9 Depression Total Score: 0 03/13/20 23 9:01 AM EDT documented as of this encounter Care Teams Unit Control Clerk Relationship Specialty Start Date End Date Betsy Naqvi MD [address] [place] [address] PCP - General Family Medicine 09/11/18 documented as of this encounter
--- OUTSIDE RECORDS SUMMARY | 2025-05-12 13:02 | XMS_ITS | Encounter Summary ---
Author Organization [employer] Address [address] [facility] 7t [place] [address] Care Team Providers Care Senior Analyst Developer Name Role Phone Betsy Naqvi MD Primary Care Provider [phone] Encounter Details Date Type Department Care Team ([facility] st Contact Info) Description 08/04/2024 Orders Only [facility] MED & PEDS [address] [place] [id number] Provider, MD Lv Social History Tobacco Use [...] [facility] (08/04/2024 11:08 AM EST) Historical Provider MD LAB BLOOD ORDERABLES Lorna [...] documented as of this encounter Care Teams Senior Analyst Developer Relationship Specialty Start Date End Date Betsy Naqvi MD [address] [place] [address] PCP - General Family Medicine 09/11/18 documented as of this encounter
--- OUTSIDE RECORDS SUMMARY | 2025-05-12 13:02 | XMS_ITS | Encounter Summary ---
Author Organization [employer] Address [address] [place] [address] 7t [place] [address] Care Team Providers Care Geriatric Personal Care Aide Name Role Phone Betsy Naqvi MD Primary Care Provider [phone] Encounter Details Date Type Department Care Team (Late st Contact Info) Description 02/14/2024 Orders Only [facility] [address] [place], [place] [phone] Provider, MD Lv Social History Tobacco Use [...] structure / Unknown us Historical Provider LAB BODY FLUIDS AND STOOL S ORDERABLES Final Result documented in this encounter Visit Diagnoses Not on filedocumented in this encounter Additional Health Concerns Assessment Noted Time PHQ-9 Depression Total Score: 0 03/13/20 23 9:01 AM EDT documented as of this encounter Care Teams Geriatric Personal Care Aide Relationship Specialty Start Date End Date Betsy Naqvi MD [address] [place] [address] PCP - General Family Medicine 09/11/18 documented as of this encounter
--- OUTSIDE RECORDS SUMMARY | 2025-05-12 13:02 | XMS_ITS | Encounter Summary ---
Author Organization [employer] Address [address] [facility] 7t [place] [address] Care Team Providers Care Head Of Maintenance Name Role Phone Betsy Naqvi MD Primary Care Provider [phone] Encounter Details Date Type Department Care Team ([facility] st Contact Info) Description 08/05/2024 Orders Only [facility] CHC MED & PEDS [address] [place] [phone] Provider, MD Lv Social History Tobacco Use [...] Venous blood specimen / Unknown Result [facility] Provider LAB BLOOD BANK TEST ORDER SUSANA Final Result * MRSA Culture Screen (08/05/2024 10:21 AM EST) Swab Nasopharyngeal structure / Unknown Result [facility] Provider LAB MICROBIOLOGY - GENERA L ORDERABLES Final Result * ABO Group (08/04/2024 3:22 PM EST) [facility] Provider MD LAB BLOOD BANK TEST ORDER SUSANA Final Result * Antibody screen (08/04/2024 3:22 PM EST) Blood Venous blood specimen / Unknown [facility] Provider MD LAB BLOOD ORDERABLES Lorna l Result * Basic Metabolic Panel (08/04/2024 3:14 PM EST) Blood Venous blood specimen / Unknown [facility] Provider MD LAB BLOOD ORDERABLES Lorna l Result * Albumin (08/04/2024 3:14 PM EST) Blood Venous blood specimen / Unknown Result [facility] Provider MD LAB BLOOD ORDERABLES Lorna l Result * Urinalysis, Complete, with Reflex to Culture (08/04/2024 3:06 PM EST) Urine Result [facility] Provider LAB URINE ORDERABLES Lorna l Result * AMB HCG URINE TEST (08/04/2024 3:03 PM EST) Result [facility] Provider LAB BLOOD ORDERABLES Lorna l Result documented in this encounter Visit Diagnoses Not on filedocumented in this encounter Additional Health Concerns Assessment Noted Time PHQ-9 Depression Total Score: 0 03/13/20 23 9:01 AM EDT documented as of this encounter Care Teams Head Of Maintenance Relationship Specialty Start Date End Date Betsy Naqvi MD [address] [place] [address] PCP - General Family Medicine 09/11/18 documented as of this encounter
--- OUTSIDE RECORDS SUMMARY | 2025-05-12 13:03 | XMS_ITS | Encounter Summary ---
Author Organization [employer] Address [address] [place] [address] Care Team Providers Care Journal Clerk Name Role Phone Betsy Naqvi MD Primary Care Provider Encounter Details Date Type Department Care Team (Late st Contact Info) Description 05/12/2025 Orders Only [facility] [address] [place], [place] [phone] Tucker Hewitt MD [address] [place], [place] [phone] Social History Tobacco Use Types Packs/Day Years [...] Procedure Name Priority Date/Time Associated Diagnosis Comments XR RIBS 3 VIEWS LEFT W CHEST Routine 05/12/2025 12:00 PM EDT documented in this encounter Results * XR Ribs 3 Views Left w/ Chest (05/12/2025 12:00 PM EDT) Anatomical Region Laterality Modality Radiographic Dixie ging 05/12/2025 12:0 0 PM EDT Narrative 05/12/2025 12:23 [place] [address] XRay Report Signed Patient: Mary Gonzalez MR #: [id number] : 1985 Acct:[id number] Age/Sex: 39 / F ADM Date: 05/12/25 Loc: HO.HHCX Attending Dr: Tucker Hewitt MD Ordering Physician: TUCKER HEWITT MD Date of Service: 05/12/25 Procedure(s): XR ribs LT min 3V w CXR1V Accession Number(s): [id number] cc: TUCKER HEWITT MD Reason for Exam: PAIN EXAMINATION: XR RIBS, LEFT CLINICAL INFORMATION: PAIN COMPARISON: Previous chest x-ray February 2021 and August 2017 TECHNIQUE: 3 views of the left ribs and one view of the chest were obtained. FINDINGS: Lungs are clear. No consolidation, pneumothorax, or pleural effusion. The cardiomediastinal silhouette and pulmonary vasculature are normal. There is increased sclerosis of the inferior posterior left fourth rib. This is similar to prior exams going back to 2018 and may represent a bone island. Ribs are otherwise unremarkable. No fractures are identified. XR/XR ribs LT min 3V w CXR1V IMPRESSION: No evidence for acute disease in the chest. Increased sclerosis of the left inferior posterior fourth rib similar to old chest x-rays going back to 2018. This probably represents a bone island. No rib fracture. Electronically signed by: Clau Cantu MD 05/12/2025 12:20 PM EDT RP Dictated By: Clau Cantu MD Signed By: <Electronically signed by Clau Cantu MD in OV> 05/12/25 1220 DD/ 1200 TD/TT: 05/12/25 1214 Aquatic Biologist: PENELOPE Procedure Note Donotuseinterpreter, Image - 05/12/[address] [address] XRay Report Signed Patient: Mary GonzalezMR #: [id number] : 1985Acct:[id number] Age/Sex: 39 / FADM Date: 05/12/25 Loc: HO.HHCX Attending Dr: Tucker Hewitt MD Ordering Physician: TUCKER HEWITT MD Date of Service: 05/12/25 Procedure(s): XR ribs LT min 3V w CXR1V Accession Number(s): [id number] cc: TUCKER HEWITT MD Reason for Exam: PAIN EXAMINATION: XR RIBS, LEFT CLINICAL INFORMATION: PAIN COMPARISON: Previous chest x-ray February 2021 and August 2017 TECHNIQUE: 3 views of the left ribs and one view of the chest were obtained. FINDINGS: Lungs are clear. No consolidation, pneumothorax, or pleural effusion. The cardiomediastinal silhouette and pulmonary vasculature are normal. There is increased sclerosis of the inferior posterior left fourth rib. This is similar to prior exams going back to 2018 and may represent a bone island. Ribs are otherwise unremarkable. No fractures are identified. XR/XR ribs LT min 3V w CXR1V IMPRESSION: No evidence for acute disease in the chest. Increased sclerosis of the left inferior posterior fourth rib similar to old chest x-rays going back to 2018. This probably represents a bone island. No rib fracture. Electronically signed by: Clau Cantu MD 05/12/2025 12:20 PM EDT RP Dictated By: Clau Cantu MD Signed By: <Electronically signed by Clau Cantu MD in OV> 05/12/25 1220 DD/ 1200 TD/TT: 05/12/25 1214 Aquatic Biologist: PENELOPE Tucker Hewitt MD IMG XR PROCEDURES Edited Result - Final documented in this encounter Visit Diagnoses Not on filedocumented in this encounter Additional Health Concerns Assessment Noted Time PHQ-9 Depression Total Score: 0 03/13/20 23 9:01 AM EDT documented as of this encounter Care Teams Journal Clerk Relationship Specialty Start Date End Date Betsy Naqvi MD [address] [place] [address] PCP - General Family Medicine 09/11/18 documented as of this encounter
--- OUTSIDE RECORDS SUMMARY | 2025-05-12 13:03 | XMS_ITS | Encounter Summary ---
Author Organization [employer] Address [address] [facility] [address]t [place] [address] Care Team Providers Care Tennis Camp Instructor Name Role Phone Betsy Naqvi MD Primary Care Provider [phone] Encounter Details Date Type Department Care Team ([facility] st Contact Info) Description 08/07/2024 Orders Only [facility] CHC MED & PEDS [address] [place] [phone] Provider, MD Lv Social History Tobacco Use [...] documented as of this encounter Care Teams Tennis Camp Instructor Relationship Specialty Start Date End Date Betsy Naqvi MD [address] [place] [address] PCP - General Family Medicine 09/11/18 documented as of this encounter
--- OUTSIDE RECORDS SUMMARY | 2025-05-12 13:03 | XMS_ITS | Encounter Summary ---
Author Organization [employer] Address [address] [facility] [address] [place] [address] Care Team Providers Care Manufacturing Recruiter Name Role Phone Betsy Naqvi MD Primary Care Provider [phone] Encounter Details Date Type Department Care Team (Latest Contact Info) Description 05/12/2025 Travel Social History Tobacco Use Types Packs/Day [...] documented as of this encounter Care Teams Manufacturing Recruiter Relationship Specialty Start Date End Date Betsy Naqvi MD [address] [place] [address] PCP - General Family Medicine 09/11/18 documented as of this encounter
--- OUTSIDE RECORDS SUMMARY | 2025-05-12 13:03 | XMS_ITS | Encounter Summary ---
Author Organization [employer] Address [address] [facility] [address] [place] [address] Care Team Providers Care Bulk Cooler Installer Name Role Phone Betsy Naqvi MD Primary Care Provider [phone] Encounter Details Date Type Department Care Team ([facility] st Contact Info) Description 03/04/2025 Orders Only [facility] CHC MED & PEDS [address] [place] [phone] Provider, MD Lv Social History Tobacco Use Types Packs/Day Years Used Date Smoking Tobacco: Never Passive Smoke Exposure: Never Smokeless Tobacco: Never Depression Answer Date Recorded Patient Health Questionnaire-9 Score 0 03/13/2023 Housing Stability Answer Date Recorded What is your housing situation today? I have esha alracon 05/21/[address] you li [...] Procedure Name Priority Date/Time Associated Diagnosis Comments INSULIN Routine 03/02/2025 3:16 PM EDT documented in this encounter Results * Insulin (03/02/2025 3:16 PM EDT) Blood Venous blood specimen / Unknown us Historical Provider LAB BLOOD ORDERABLES Lorna l Result documented in this encounter Visit Diagnoses Not on filedocumented in this encounter Additional Health Concerns Assessment Noted Time PHQ-9 Depression Total Score: 0 03/13/20 23 9:01 AM EDT documented as of this encounter Care Teams Bulk Cooler Installer Relationship Specialty Start Date End Date Betsy Naqvi MD [address] [place] [address] PCP - General Family Medicine 09/11/18 documented as of this encounter
--- OUTSIDE RECORDS SUMMARY | 2025-05-12 13:03 | XMS_ITS | Clinical Summary ---
Author Organization [facility] Address [address] [facility] [address] [place] [address] Phone Care Team Providers Care Lockstitch Lining Maker Name Role Phone Betsy Naqvi MD Primary Care Provider [phone] Allergies Active Allergy Reactions Criticality Noted Date Comments Food Extracts Itching,Shortness Of Breath,Swelling High 12/18/2023 Nasal Allergy Control Headaches,Itching, Rash,Marilynn rtness Of Breath,Swelling High 12/18/2023 Shellfish Containing Products 08/16/2018 Medications fexofenadine (NEGAR) 180 MG tablet Take 180 mg by mouth every morning. 4 Active levothyroxine (SYNTHROID, LEVOTHROID) 100 MCG tablet take 1 tablet by mouth before breakfast 4 Active cetirizine (ZYRTEC) 10 MG tablet Take 10 mg by mouth daily. Active beclomethasone (QVAR REDIHALER) 80 mcg/actuation inhaler Inhale into the lungs. 4 Active EPINEPHrine 0.3 mg/0.3 mL auto-injector Inject 0.3 mg as directed. 4 Active acetaminophen (TYLENOL) 500 MG tablet Take 2 tablets (1,000 mg total) by mouth every 6 (six) hours as needed for pain (specific location in comments). 60 tablet 1 5 Active inulin (FIBER GUMMIES ORAL) Take by mouth. A ctive multivitamin-mi [id number] K 45 mg iron- 800 mcg-[address] onto the skin. PATCHES Active polyethylene glycol (MIRALAX) 17 gram/dose powder Take 17 g by mouth daily as needed for mild constipation. Active Active Problems Problem Noted Date Diagnosed Date Body mass index (BMI) 24.0-24.9, adult Assessment & Plan (02/24/2025 11:30 AM EDT): Is a 39-year-old woman who is doing well with weight loss and has reached her weight loss goal after having laparoscopic sleeve gastrectomy August 05, 2024. The patient is doing well with her protein intake. She needs increase her water intake. She should add formalized exercise with strength training. She will have her 6-month blood work drawn and I will call her if any of the labs are abnormal. She will follow-up with the dietitian as already scheduled for the end of the month and she will follow-up with me again in 3 months timeframe. She will continue current medications as reviewed. Overweight with body mass in dex (BMI) of 27 to 27.9 in adult 10/17/2024 Assessment & Plan (10/17/2024 2:29 PM EDT): This is a 38-year-old woman who underwent a laparoscopic sleeve gastrectomy with hiatal hernia repair August 05, 2024. The patient is doing well with weight loss. She should increase her water intake to at least 64 ounces of water on a daily basis and should add formalized exercise. Patient is having some constipation. Of asked her to use MiraLAX on a daily or every other day basis to help soften her stools. She is no longer being treated for hypertension. She will continue current medications as reviewed. She will continue current eating plan as well. She will follow-up with me again in 2 months timeframe. She is not stable and is considered overweight. Bariatric surgery status 08/05/2024 Class 1 obesity due to exces s calories with serious comorbidity and body mass index (BMI) of 30.0 to 30.9 in adult 01/29/2024 Assessment & Plan (08/19/2024 2:08 PM EST): This is a 38-year-old woman who underwent a laparoscopic sleeve gastrectomy with hiatal hernia repair and intraoperative endoscopy August 05, 2024. Patient is doing well. She will advance to pur ed diet for 2 weeks with 2 protein shakes being consumed per day and then she will advance to soft regular diet with 2 protein shakes being consumed per day and then she will advance to regular diet with 2 protein shakes being consumed per day for close to 4 to 6 months until she can consume 60 to 80 g of protein by food alone. She should avoid all heavy lifting greater than 15 pounds for another 2 weeks and then may go unrestricted in terms of physical activity. She should continue to advance her diet as described below. She will follow-up with the dietitian as already scheduled for September 03 and follow-up with me again in 8 weeks timeframe. She is not stable and is considered obese. She should increase her water intake to at least 64 ounces of water on a daily basis. Patient will continue current medications as reviewed. Postoperative Diet Advancement Two weeks postoperatively: Two protein shakes daily and 2 small meals that are pureed Advanced to pureed diet which is chunk light pink tuna with mayonnaise, canned shredded chicken with mayonnaise, ricotta cheese with spaghetti sauce, ground turkey or ground chicken chili without beans, scrambled eggs, cottage cheese, Marshallese yogurt, cauliflower rice, or you may place any food in the grain blender a general manager food to create pureed food. Four weeks postoperatively: Two protein shakes daily and 2 small soft regular meals. At this point you will not have to puree food. Make sure the food is cooked soft and chewed well before you swallow it. Six weeks postoperatively: Two protein shakes daily and 2 regular meals. Avoid all salads and raw vegetables for 3 months postoperatively. Assessment & Plan (06/10/2024 2:06 PM EST): This is a 38-year-old woman who has done extremely well on the medical component of the program. She has completed all requirements including 5 out of 5 nutrition classes, 2 out of 2 behavioral health assessments and all required testing. She is lost all the weight she needs to lose noted to be a surgical weight loss candidate. She will continue current exercise plan, water intake, and eating plan. We will submit her information to the insurance company for a laparoscopic sleeve gastrectomy with possible hiatal hernia repair and intraoperative endoscopy. Once we have approval the patient will be set up for a preoperative class with the dietitian and surgical date scheduling. She is not stable and is considered obese. Assessment & Plan (05/20/2024 11:28 AM EDT): This is a 38-year-old woman who is interested in a laparoscopic sleeve gastrectomy for weight loss. The patient has completed all requirements including 5 out of 5 nutrition classes, 2 out of 2 behavioral health assessments and all required testing. She now needs to lose 6.6 pounds. She will increase her protein slightly. She will continue with current exercise and water intake. She will continue current medications as reviewed. She is not stable and is considered obese. I will follow-up with her again in 4 weeks timeframe. Patient had a repeat H. pylori study which is now negative. Assessment & Plan (01/29/2024 2:25 PM EDT): Patient this is a 38-year-old woman who is interested in a laparoscopic sleeve gastrectomy for weight loss. The patient has lost 8.2 pounds since her first visit with me and now has 12.8 pounds to lose. She is completed 5 out of 5 nutrition classes, 2 out of 2 behavioral health assessments and has been cleared and all required testing with the exception of the H. pylori study which she plans to have done next week. Patient will continue current eating plan but she will increase her protein and avoid skipping meals. She will continue current water intake and exercise. She will follow-up with the dietitian as already scheduled for February 20, 2024 and follow-up with me again in 6 weeks timeframe. She is not stable and is considered obese. She will continue current medications as reviewed. Class 2 severe obesity due t o excess calories with serious comorbidity and body mass index (BMI) of 36.0 to 36.9 in adult 12/18/2023 Assessment & Plan (12/18/2023 1:22 PM EDT): This is a 37 YO patient who [...] protein shake or a protein bar or Marshallese yogurt or cottage cheese to be consumed [...] included documentation. Preoperative examination 12/18/2023 Primary hypertension 12/18/2023 Encounters Date Type Department Care Team Description 03/02/2025 9:52 AM EDT - 03/02/2025 11:59 PM EDT Hospital Encounter [facility] [address] [place] [address] Yulisa Rosario MD Discharge Disposition: Home or Self Care 02/24/2025 11:00 AM EDT Office Visit [facility] [address] [place] [address] Yulisa Rosario MD Body mass index (BMI) 24.0-24.9, adult (Primary Dx); Bariatric surgery status; Status post laparoscopic sleeve gastrectomy; Intestinal malabsorption following gastrectomy from Last 3 Months Immunizations Immunization Administration Dates Next Due Influenza Quadrivalent Preservative Free IM 05/23 Influenza Quadrivalent w/ Preservative IM 2017 Family History Medical History Relation Comments Diabetes type II Father Heart disease Father Relation Status Comments Father Alive Mother Sister Alive Social History Tobacco Use Types Packs/Day Years Used Date Smoking Tobacco: Never Smokeless Tobacco: Never Tobacco Cessation:Counseling Given: Not Answered Alcohol Use Standard Drinks/Week Comments Yes 6 [...] 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 file Not on file Not on file Last Filed Vital Signs Vital Sign Reading Time Taken Comments Blood Pressure 100/62 02/24/2025 10:00 AM EDT Pulse 68 02/24/2025 10:00 AM EDT Temperature 36.6 C (97.8 F) 02/24/2025 10:00 AM EDT Respiratory Rate 15 08/06/2024 11:00 AM EST Oxygen Saturation 99% 02/24/2025 10:00 AM EDT Inhaled Oxygen Concentration - - Weight 64.2 kg (141 lb 9.6 oz) 02/24/2025 10:00 AM EDT Height 162.6 cm (5' 4.02 ) 02/24/2025 10:00 AM E DT Body Mass Index 24.29 02/24/2025 10:00 AM EDT Plan of Treatment Upcoming Encounters Date Type Department Care Team (Late st Contact Info) Description 06/01/2025 10:00 AM EST Office Visit [facility] General Surgical Care [address] [place] [address] Yulisa Rosario MD [address] [facility] [place] [address] [email or web address] Health Maintenance Due Date Last Done Comments Adult Td,Tdap Booster 1987 HEPATITIS C SCREENING 12/26/2005 HIV ONE-TIME SCREENING (18-6 5 YEARS) 12/26/2005 PAP SMEAR 12/26/2008 DEPRESSION SCREENING 12/31/2024 01/01/2024 INFLUENZA VACCINE (#1) 2025 , 07/25/2017 COVID-19 VACCINE (2024-2 6 season) 2025 BLOOD PRESSURE 08/27/2025 02/24/2025 TSH LEVEL 03/02/2026 03/02/2025, 12/24/2023 SMOKING STATUS SCREENING (On ce After 26 Yrs) Completed 02/24/2025 HEPATITIS A VACCINES Aged Out No long er eligible based on patient's age to complete this topic HIB VACCINES Aged Out No longer eligi ble based on patient's age to complete this topic MENINGOCOCCAL VACCINES (ACWY) Aged Out No longer eligible based on patient's age to complete this topic MENINGOCOCCAL VACCINES (B) Aged Out N o longer eligible based on patient's age to complete this topic PNEUMOCOCCAL VACCINES (0-49 years) Aged Out No longer eligible b ased on patient's age to complete this topic Medical Devices Not on file Procedures Procedure Name Priority Date/Time Associated Diagnosis Comments 25-OH VITAMIN D Routine 03/02/2025 9:56 AM EDT Intestinal malabsorption following gastrectomy CBC Routine 03/02/2025 9:56 AM EDT Intestinal malabsorption following gastrectomy COMPREHENSIVE METABOLIC PANEL Routine 03/02/2025 9:56 AM EDT Intestinal malabsorption following gastrectomy C-REACTIVE PROTEIN Routine 03/02/2025 9: 56 AM EDT Intestinal malabsorption following gastrectomy HEMOGLOBIN A1C Routine 03/02/2025 9:56 AM EDT Intestinal malabsorption following gastrectomy INSULIN LEVEL Routine 03/02/2025 9:56 AM EDT Intestinal malabsorption following gastrectomy IRON AND IRON BINDING CAPACITY Routine 03/02/2025 9:56 AM EDT Intestinal malabsorption following gastrectomy LIPID PANEL Routine 03/02/2025 9:56 AM EDT Intestinal malabsorption following gastrectomy PARATHYROID HORMONE (PTH) Routine 03/02/2025 9:56 AM EDT Intestinal malabsorption following gastrectomy TSH Routine 03/02/2025 9:56 AM EDT Intestinal malabsorption following gastrectomy VITAMIN A Routine 03/02/2025 9:56 AM EDT Intestinal malabsorption following gastrectomy VITAMIN B1 (THIAMINE) Routine 03/02/2025 9:56 AM EDT Intestinal malabsorption following gastrectomy VITAMIN B12 Routine 03/02/2025 9:56 AM EDT Intestinal malabsorption following gastrectomy ZINC Routine 03/02/2025 9:56 AM EDT Intestinal malabsorption following gastrectomy from Last 3 Months Results * Zinc (03/02/2025 9:56 AM EDT) Zinc, S 85 60 - 106 mcg/dL [facility] Comment: (NOTE) ADDITIONAL INFORMATION This test was developed and its performance characteristics determined by [facility] in a manner consistent with CLIA requirements. This test has not been cleared or approved by the U.S. Food and Drug Administration. Blood 03/02/2025 9:56 AM EDT 03/02/2025 10:07 AM EDT us Yulisa Rosario MD LAB BLOOD ORDERABLES Final Result [facility] [address] [place] [address] * (ABNORMAL) Comprehensive metabolic panel (03/02/2025 9:56 AM EDT) SODIUM 140 133 - 146 mmol/L [facility] POTASSIUM 3.8 3.3 - 5.1 mmol/L [facility] CHLORIDE 103 96 - 108 mmol/L [facility] CO2 23 21 - 35 mmol/L [facility] BUN 10 6 - 19 mg/dL [facility] CREATININE 0.80 0.5 - 1.5 mg/dL [facility] GLUCOSE 103(H) 70 - 99 mg/dL [facility] ALBUMIN 4.3 3.9 - 4.8 g/dL [facility] TOTAL PROTEIN 7.2 6.5 - 8.0 g/dL [facility] CALCIUM 9.6 8.4 - 10.3 mg/dL [facility] ALKALINE PHOSPHATASE 60 39 - 117 U/L [facility] TOTAL BILIRUBIN 0.5 0.0 - 1.2 mg/dL [facility] AST 22 0 - 37 U/L [facility] ALT 10 0 - 40 U/L [facility] GLOBULIN 2.9 1 - 4.8 g/dL [facility] EGFR 97 >59 mL/min/1.7 3m2 [facility] Comment:Estimated glomerular filtration rate calculated using the CKD-EPI refit equation. ANION GAP 18 10 - 20 mmol/L [facility] Blood 03/02/2025 9:56 AM EDT 03/02/2025 10:07 AM EDT us Yulisa Rosario MD LAB BLOOD ORDERABLES Final Result Performing Organization Address City/[facility]/ZIP Co de Phone Number [address] [address] * (ABNORMAL) Iron and iron binding capacity (03/02/2025 9:56 AM EDT) IRON 213(H) 30 - 160 ug/dL [facility] IRON BINDING CAPACITY 427 228 - 428 ug/dL [facility] TRANSFERRIN SATURAT. 50 15 - 50 % [facility] Blood 03/02/2025 9:56 AM EDT 03/02/2025 10:07 AM EDT us Yulisa Rosario MD LAB BLOOD ORDERABLES Final Result Performing Organization Address City/[facility]/ZIP Co de Phone Number [address] [address] * Vitamin A (03/02/2025 9:56 AM EDT) VITAMIN A 47.9 32.5 - 78.0 mcg/dL [facility] Comment: (NOTE) ADDITIONAL INFORMATION This test was developed and its performance characteristics determined by [facility] in a manner consistent with CLIA requirements. This test has not been cleared or approved by the U.S. Food and Drug Administration. Blood 03/02/2025 9:56 AM EDT 03/02/2025 10:07 AM EDT us Yulisa Rosario MD LAB BLOOD ORDERABLES Final Result Performing Organization Address City/[facility]/ZIP Co de Phone Number [facility] MED/[facility] [address] [place] [address] * 25-OH vitamin D (03/02/2025 9:56 AM EDT) 25 OH VIT D (TOTAL) 30 30 - 60 ng/mL [facility] Blood 03/02/2025 9:56 AM EDT 03/02/2025 10:07 AM EDT us Yulisa Rosario MD LAB BLOOD ORDERABLES Final Result Performing Organization Address [facility] Co de Phone Number [facility] [address] [place] [address] * (ABNORMAL) Insulin Level (03/02/2025 9:56 AM EDT) Pathologist [facility] INSULIN 105.0(H) 2.6 - 25.0 uIU/mL [facility] Blood 03/02/2025 9:56 AM EDT 03/02/2025 10:07 AM EDT us Yulisa Rosario MD LAB BLOOD ORDERABLES Final Result Performing Organization Address City/[facility]/ZIP Co de Phone Number [address] [address] * (ABNORMAL) CBC (03/02/2025 9:56 AM EDT) WBC 7.06 4.00 - 11.00 K/uL [facility] RBC 4.96 4.00 - 5.20 M/uL [facility] HGB 13.2 12.0 - 16.0 g/dL [facility] HCT 42.4 36.0 - 46.0 % [facility] PLT 275 150 - 450 K/uL [facility] MCV 85.5 80.0 - 100.0 fL [facility] MCH 26.6(L) 27.0 - 31.0 pg [facility] MCHC 31.1(L) 32.0 - 36.0 g/dL [facility] RDW 14.6(H) 11.5 - 14.5 % [facility] MPV 10.3 8.4 - 12.0 fL [facility] NRBC 0.00 0.00 /100 WBCs [facility] ABSOLUTE NRBC 0.00 0.00 K/uL [facility] Blood 03/02/2025 9:56 AM EDT 03/02/2025 10:07 AM EDT us Yulisa Rosario MD LAB BLOOD ORDERABLES Final Result Performing Organization Address [facility] de Phone Number [address] [address] * C-Reactive Protein (03/02/2025 9:56 AM EDT) C REACTIVE PROTEIN <3.0 0.0 - 4.0 mg/L [facility] Blood 03/02/2025 9:56 AM EDT 03/02/2025 10:07 AM EDT us Yulisa Rosario MD LAB BLOOD ORDERABLES Final Result Performing Organization Address [facility]/ZIP Co de Phone Number [address] [address] * TSH (03/02/2025 9:56 AM EDT) TSH 1.89 0.27 - 4.20 uIU/mL [facility] Blood 03/02/2025 9:56 AM EDT 03/02/2025 10:07 AM EDT us Yulisa Rosario MD LAB BLOOD ORDERABLES Final Result Performing Organization Address City/[facility] Co de Phone Number [address] [address] * Vitamin B1 (thiamine) (03/02/2025 9:56 AM EDT) VITAMIN B1 101 70 - 180 nmol/L [facility] Comment: (NOTE) ADDITIONAL INFORMATION This test was developed and its performance characteristics determined by [facility] in a manner consistent with CLIA requirements. This test has not been cleared or approved by the U.S. Food and Drug Administration. Blood 03/02/2025 9:56 AM EDT 03/02/2025 10:07 AM EDT us Yulisa Rosario MD LAB BLOOD ORDERABLES Final Result Performing Organization Address City/[facility] Co de Phone Number [facility] [address] [place] [address] * Parathyroid hormone (PTH) (03/02/2025 9:56 AM EDT) PARATHYROID HORMONE 28 15 - 65 pg/mL [facility] Blood 03/02/2025 9:56 AM EDT 03/02/2025 10:07 AM EDT Yulisa Rosario MD LAB BLOOD ORDERABLES Final Result [address] [address] * Hemoglobin A1c (03/02/2025 9:56 AM EDT) HEMOGLOBIN A1C 5.1 4.3 - 5.8 % [facility] Blood 03/02/2025 9:56 AM EDT 03/02/2025 10:07 AM EDT Yulisa Rosario MD LAB BLOOD ORDERABLES Final Result [address] [address] * Vitamin B12 (03/02/2025 9:56 AM EDT) VITAMIN B12 258 232 - 1,245 pg/mL [facility] Blood 03/02/2025 9:56 AM EDT 03/02/2025 10:07 AM EDT us Yulisa Rosario MD LAB BLOOD ORDERABLES Final Result Performing Organization Address [facility] Co de Phone Number [address] [address] * (ABNORMAL) Lipid panel (03/02/2025 9:56 AM EDT) HDL 61 mg/dL [facility] Comment: Interpretation <40 mg/dL: Low HDL cholesterol (major risk factor for CHD) Greater than or equal to 60 mg/dL: High HDL cholesterol ( negative risk factor for CHD) HDL - cholesterol is affected by a number of factors, e.g. smoking, excerise, hormones, sex and age. CHOLESTEROL 132 0 - 240 mg/dL [facility] TRIGLYCERIDES 91 30 - 160 mg/dL [facility] LDL 53 50 - 129 mg/dL [facility] Comment: LDL levels in terms of risk for coronary heart disease: <100 mg/dL: Optimal 100-129 mg/dL: Near or above optimal 130-159 mg/dL: Borderline high 160-189 mg/dL: High >190 mg/dL: Very High CARDIAC RISK RATIO 2.2(L) 3.3 - 4.4 C [facility] Blood 03/02/2025 9:56 AM EDT 03/02/2025 10:07 AM EDT us Yulisa Rosario MD LAB BLOOD ORDERABLES Final Result Performing Organization Address City/[facility] Co de Phone Number [address] [address] from Last 3 Months Insurance [facility] C[facility] ACO C3 ACO [facility] [address] C3 ACO ARACELI [address] C3 ACO [place]NMARIE [place]ERN[place] [id number] [facility] C3 ACO [place]NMARIE F[place] [phone] [facility] C3 ACO [place]NM[place] [phone] Advance Directives For more information, please contact: [phone] (9AM - 5PM [place]/[facility], Sunday-Sunday) * Full Code (Latest Code Status on File) Date Activated Date Inactivated Comments 08/05/2024 2:31 PM Question Answer Comments Code Status Confirmed With: Patient * Full Code Date Activated Date Inactivated Comments 08/05/2024 6:09 AM 08/05/2024 2:31 PM Question Answer Comments Code Status Confirmed With: Patient Care Teams Lockstitch Lining Maker Relationship Specialty Start Date End Date eBtsy Naqvi MD [address] [place] [address] PCP - General Internal Medicine 10/26/23 Additional Source Comments The information contained in this document represents components of the legal health record. It is not the complete legal health record.[facility]
--- OUTSIDE RECORDS SUMMARY | 2025-05-12 13:03 | XMS_ITS | Encounter Summary ---
Author Organization [employer] Address [address] [place] [address] Care Team Providers Care Humane Officer Name Role Phone Betsy Naqvi MD Primary Care Provider [phone] Encounter Details Date Type Department Care Team ([facility] st Contact Info) Description 03/09/2025 Orders Only [facility] [address] ANNMARIE [id number] Provider, MD Lv Social History Tobacco Use [...] Name Priority Date/Time Associated Diagnosis Comments VITAMIN B12 Routine 03/02/2025 9:11 AM EDT documented in this encounter Results * Vitamin B12 (03/02/2025 9:11 AM EDT) Blood Venous blood specimen / Unknown us Historical Provider LAB BLOOD ORDERABLES Lorna l Result documented in this encounter Visit Diagnoses Not on filedocumented in this encounter Additional Health Concerns Assessment Noted Time PHQ-9 Depression Total Score: 0 03/13/20 23 9:01 AM EDT documented as of this encounter Care Teams Humane Officer Relationship Specialty Start Date End Date Betsy aNqvi MD [address] [place] [address] PCP - General Family Medicine 09/11/18 documented as of this encounter
--- OUTSIDE RECORDS SUMMARY | 2025-05-12 13:03 | XMS_ITS | Clinical Summary ---
Author Organization [employer] Address [address] [place] [address] 7t [place] [address] Care Team Providers Care Aerospace Stress Engineer Name Role Phone Betsy Naqvi MD Primary Care Provider [phone] Allergies Active Allergy Reactions Criticality Noted Date Comments Shellfish Protein-Containing Drug Products 08/16/2018 Medications albuterol 108 (90 Base) MCG/ACT inhalerIndicat ions:COVID-19, Long COVID Inhale 2 puffs every 4 (four) hours if needed for wheezing or shortness of breath. 18 g 1 06/26/20 22 Active Diclofenac Sodium 1 % gelIndications :Chronic ankle pain, unspecified laterality Apply 2 g topically if needed in the morning, at noon, and at bedtime (pain). 100 g 3 06/26/20 22 Active Blood Pressure kit Check BP 1-2 times per day 1 kit 03/06/20 23 Active ibuprofen 800 MG tabletIndicati ons:Viral syndrome Take 1 tab orally tid prn 60 tablet 2 09/11/19 24 Active Beclomethasone Diprop HFA (Qvar) 80 MCG/ACT inhaler Inhale 1 Inhalation. in the morning and at bedtime. 10.6 g 11 12/19/19 24 Active EPINEPHrine (Epipen) 0.3 MG/0.3ML injection syringeIndicat ions:Allergy history, seafood Inject 0.3 mL (0.3 mg) as directed 1 (one) time for 1 dose. 0.3 mL 04/29/20 24 Active Docusate Sodium (DSS) 100 MG capsule Take 100 mg by mouth 2 times daily. 08/05/19 25 Active thiamine (Vitamin B-1) 50 MG tablet Take 50 mg by mouth Once per day. 08/05/19 25 Active fexofenadine (Avelina) 180 MG tablet Take 1 tablet (180 mg) by mouth Once per day. 30 tablet 03/12/20 25 026 Active fluticasone (Flonase Allergy Relief) 50 MCG/ACT nasal spray Administer 1-2 sprays into each nostril Once per day. 16 g 03/12/20 25 Active tiZANidine (Zanaflex) 2 MG tablet Take 1 tablet (2 mg) by mouth every 6 (six) hours if needed for muscle spasms for up to 10 days. 30 tablet 05/12/20 25 025 Active acetaminophen (Tylenol) 500 MG tablet Take 2 tablets (1,000 mg) by mouth every 6 (six) hours if needed for moderate pain or fever for up to 25 doses. 50 tablet 05/12/20 25 Active acetaminophen (Tylenol) 500 MG tablet Take 2 tablets (1,000 mg) by mouth every 6 (six) hours if needed for moderate pain or fever for up to 25 doses. 50 tablet 07/08/20 24 025 Discontinued(Re order (will not trigger notification to Pharmacy)) Active Problems Problem Noted Date Diagnosed Date [...] protein shake or a protein bar or Tu[place] yogurt or cottage cheese to be consumed [...] Encounters Date Type Department Care Team Description 05/12/2025 9:40 AM EDT Office Visit [facility] [address] [place] [phone] Chest wall pain (Primary Dx); Chest injury, initial encounter 05/12/2025 Orders Only [facility] [address] [place] [id number] Tucker Hewitt MD 05/12/2025 Travel 03/12/2025 1:00 PM EDT Office Visit [facility] [address] [place] [address] Betsy Naqvi MD DUB (dysfunctional uterine bleeding) (Primary Dx) 03/12/2025 Travel 03/11/2025 Telephone [facility] [address] [place] [phone] Betsy Naqvi MD Nurse Triage 03/09/2025 Orders Only [facility] [address] [place] [address] Lv Champagne MD 03/06/2025 Orders Only [facility] [address] [facility] [place] [address] Lv Champagne MD 03/04/2025 Orders Only [facility] [address] [place] [address] Lv Champagne MD 03/03/2025 Orders Only [facility] [address] [place] [address] Lv Champagne MD from Last 3 Months Immunizations Immunization Administration Dates Next Due Influenza injectable quadriv [...] (146 lb) 05/12/2025 9:55 AM EDT Height 162.6 cm (5' 4 ) 03/12/2025 1:12 PM EDT Body Mass Index 25.06 03/12/2025 1:12 PM EDT Plan of Treatment Health Maintenance Due Date Last Done Comments Disability Screening 1987 Alcohol/Substance Use Screening 1999 Family Planning (PISQ) 12/26/2002 HPV Vaccines (1 - 3-dose series) 12/26/2002 DTaP/Tdap/Td Vaccines (1 - Tdap) 12/26/2006 Hepatitis A Vaccines (1 of 2 - Risk 2-dose series) 12/26/2006 Hepatitis B Vaccines (1 of 3 - 19+ 3-dose series) 12/26/2006 Depression Screening 03/13/2024 03/13/2023, 03/13/20 23 SDOH Screening 03/13/2024 03/13/2023 COVID-19 Vaccine ( - season) 2025 Influenza Vaccine (#1) 2025 , 06/03/2021, 07/25/2017 Tobacco Screening 05/12/2026 05/12/2025 Cervical Cancer Screening 06/03/2026 HPV/Cotest 06/03/2026 06/03/2021 Pap Smear 06/03/2026 06/03/2021 Lipid Panel 03/02/2030 03/02/2025, 0609/2023, 03/07/2023, Additional history exists Zoster Vaccines (1 of 2) 12/26/2037 RSV Patients and Patients Aged 60 years or older (1 - 1-dose 75+ series) 12/26/2062 Hepatitis C Screening Completed 06/27/2021 HIV Screening Completed 07/28/2021 HIB Vaccines Aged Out No longer eligi ble based on patient's age to complete this topic IPV Vaccines Aged Out No longer eligi ble based on patient's age to complete this topic Meningococcal B Vaccine Aged Out No l onger eligible based on patient's age to complete this topic Meningococcal Vaccine Aged Out No lakshmi sheryl eligible based on patient's age to complete this topic Pneumococcal Vaccine: Pediatrics (0 to 5 Years) and At-Risk Patients (6 to 49) Years Aged Out No longer eligible based on [...] W CHEST Routine 05/12/2025 12:00 PM EDT INSULIN Routine 03/02/2025 3:16 PM EDT VITAMIN A Routine 03/02/2025 1:43 PM EDT HEMOGLOBIN A1C Routine 03/02/2025 11:04 AM EDT CBC Routine 03/02/2025 11:03 AM EDT VITAMIN B12 Routine 03/02/2025 11:03 AM EDT VITAMIN D,25-OH,TOTAL,IA Routine 03/02/2025 11:03 AM EDT LIPID PANEL, STANDARD Routine 03/02/2025 11:00 AM EDT COMPREHENSIVE METABOLIC PANEL Routine 03/02/2025 10:52 AM EDT TSH Routine 03/02/2025 10:52 AM EDT IRON AND TOTAL IRON BINDING CAPACITY Routine 03/02/2025 10:52 AM EDT C-REACTIVE PROTEIN Routine 03/02/2025 10 :52 AM EDT ZINC Routine 03/02/2025 10:11 AM EDT VITAMIN B12 Routine 03/02/2025 9:11 AM EDT ZZZ HISTORICAL HEPATITIS B PROFILE Routine 07/28/2021 2:59 PM EST ZZZ HISTORICAL HEPATITIS C AB W/REFL TO HCV RNA, QN, PCR Routine 06/27/2021 12:35 PM EST THINPREP IMAGING PAP AND HPV MRNA E6/E7 WITH REFLEX TO HPV 16,18/45 Routine 06/03/2021 10:35 AM EST from Last 3 Months or Most Recently Relevant to Health Maintenance Results * XR Ribs 3 Views Left w/ Chest (05/12/2025 12:00 PM EDT) Anatomical Region Laterality Modality Radiographic Dixie ging 05/12/2025 12:0 0 PM EDT Narrative 05/12/2025 12:23 PM EDT [address] [address] XRay Report Signed Patient: Mary Gonzalez MR #: [id number] : 1985 Acct:[id number] Age/Sex: 39 / F ADM Date: 05/12/25 Loc: HO.HHCX Attending Dr: Tucker Hewitt MD Ordering Physician: TUCKER HEWITT MD Date of Service: 05/12/25 Procedure(s): XR ribs LT min 3V w CXR1V Accession Number(s): [id number] cc: TUCKER HEWITT MD Reason for Exam: [...] Clau Cantu MD 05/12/2025 12:20 PM EDT Dictated By: Clau Cantu MD Signed By: <Electronically signed by Clau Cantu MD in OV> 05/12/25 1220 DD/ 1200 TD/TT: 05/12/25 1214 Soldering Machine Setter: PENELOPE Procedure Note Donotuseinterpreter, Image - 05/12/2025 [facility] [address] [place] [address] XRay Report Signed Patient: Mary GonzalezMR #: [id number] : 1985Acct:[id number] Age/Sex: 39 / FADM Date: 05/12/25 Loc: HO.HHCX Attending Dr: Tucker Hewitt MD Ordering Physician: TUCKER HEWITT MD Date of Service: 05/12/25 Procedure(s): XR ribs LT min 3V w CXR1V Accession Number(s): [id number] cc: TUCKER HEWITT MD Reason for Exam: [...] Clau Cantu MD 05/12/2025 12:20 PM EDT Dictated By: Clau Cantu MD Signed By: <Electronically signed by Clau Cantu MD in OV> 05/12/25 1220 DD/ 1200 TD/TT: 05/12/25 1214 Soldering Machine Setter: PENELOPE Tucker Hewitt MD IMG XR PROCEDURES Edited Result - Final * Insulin (03/02/2025 3:16 PM EDT) Blood Venous blood specimen / Unknown Result [facility] Provider MD LAB BLOOD ORDERABLES Lorna l Result * Vitamin A (03/02/2025 1:43 PM EDT) Blood Venous blood specimen / Unknown Result Pending sale to [facility] MD LAB BLOOD ORDERABLES Lorna l Result * Hemoglobin A1c (03/02/2025 11:04 AM EDT) Blood Venous blood specimen / Unknown Result Pending sale to [facility] MD LAB BLOOD ORDERABLES Lorna l Result * Vitamin D, 25-Hydroxy, Total, Immunoassay (03/02/2025 11:03 AM EDT) Blood Result Pending sale to [facility] MD LAB BLOOD ORDERABLES Lorna l Result * CBC (03/02/2025 11:03 AM EDT) Blood Venous blood specimen / Unknown Result Pending sale to [facility] MD LAB BLOOD ORDERABLES Lorna l Result * Vitamin B12 (03/02/2025 11:03 AM EDT) Only the most recent of2 resultswithin the time period is included. Blood Venous blood specimen / Unknown Result Pending sale to [facility] MD LAB BLOOD ORDERABLES Lorna l Result * Lipid Panel, Standard (03/02/2025 11:00 AM EDT) Blood Venous blood specimen / Unknown Result Pending sale to [facility] MD LAB BLOOD ORDERABLES Loran l Result * Iron And Total Iron Binding Capacity (03/02/2025 10:52 AM EDT) Blood Venous blood specimen / Unknown Result Pending sale to [facility] MD LAB BLOOD ORDERABLES Lorna l Result * C-reactive Protein (03/02/2025 10:52 AM EDT) Blood Venous blood specimen / Unknown Result Pending sale to [facility] MD LAB BLOOD ORDERABLES Lorna l Result * TSH (03/02/2025 10:52 AM EDT) Blood Venous blood specimen / Unknown Result Pending sale to [facility] MD LAB BLOOD ORDERABLES Lorna l Result * Comprehensive Metabolic Panel (03/02/2025 10:52 AM EDT) Blood Venous blood specimen / Unknown Result Pending sale to [facility] MD LAB BLOOD ORDERABLES Lorna l Result * Zinc (03/02/2025 10:11 AM EDT) Blood Venous blood specimen / Unknown Result [facility] LAB BLOOD ORDERABLES Lorna l Result * HEPATITIS B PROFILE (07/28/2021 2:59 PM EST) Pathologist [facility] Hepatitis B Core Antibody Nonreactive Nonreactive [facility] Hepatitis B Surface Antibody REACTIVE Nonreactive [facility] Comment:REACTIVE: > 11.99 mI U/mL Hepatitis B Surface Antigen Negative Negative [facility] HIV AB/AG Nonreactive Nonreactive [facility] Comment: HIV-1 p24 Ag and/or HIV-1/HIV-2 Ab not detected. A test result that is nonreactive does not exclude the possibility of exposure to or infection with HIV-1 and/or HIV-2. Nonreactive results in this assay for individuals with prior exposure to HIV-1 and/or HIV-2 may be due to antigen and antibody levels that are below the limit of detection of this assay. The [employer] Audioprosthologist HIV Ag/Ab Combo assay result and supplemental assay results should be interpreted in conjunction with the patient's clinical presentation, history and other laboratory results. If the results are inconsistent with clinical evidence, additional testing is suggested to confirm the result. 07/28/2021 2:59 PM EST Historical Provider MD HISTORICAL/NON ORDERABLE LABS Final Result Performing Organization Address [facility] [address] [place] [address], * HEPATITIS C AB W/REFL TO HCV RNA, QN, PCR (06/27/2021 12:35 PM EST) HEPATITIS C ANTIBODY NON-REACT SU NON-REACT SU [facility] INDEX 0.02 <1.00 [facility] Comment: HCV antibody was non-reactive. There is no laboratory evidence of HCV infection. In most cases, no further action is required. However, if recent HCV exposure is suspected, a test for HCV RNA (test code 19523) is suggested. For additional information please refer to http://education.Grid2020/faq/NEB81o0 (This link is being provided for informational/ educational purposes only.) 06/27/2021 12:3 5 PM EST Betsy Naqvi MD HISTORICAL/NON ORDERABLE LABS Final Result Performing Organization Address [facility] [place] [address], * THINPREP TIS PAP AND HPV mRNA E6/E7 REFLEX HPV 16,18/45 (06/03/2021 10:35 AM EST) Clinical Information: HPV+ LEEP 12 YRS AGO IN .[facility] COMMENT SEE COMMENT [facility] Comment: EXPLANATORY NOTE: The Pap is a screening test for cervical cancer. It is not a diagnostic test and is subject to false negative and false positive results. It is most reliable when a satisfactory sample, regularly obtained, is submitted with relevant clinical findings and history, and when the Pap result is evaluated along with historic and current clinical information. COMMENT: This Pap test has been evaluated with computer assisted technology. [facility] Ob Gyn: SEE COMMENT [facility] Comment: TUCKER, CT(ASCP) CT screening location: [address] [address] HPV nRNA E6/E7 Not Detected Not Detected [facility] Comment: Methodology: [employer]-Mediated Amplification This assay detects E6/E7 viral messenger RNA (mRNA) from 14 high-risk HPV types (16,18,31,33,35,39,45,51,52,56,58,59,66,68). The analytical performance characteristics of this assay have been determined by [employer]. The modifications have not been cleared or approved by the FDA. This assay has been validated pursuant to the CLIA regulations and is used for clinical purposes. For additional information, please refer to http://education.Grid2020/faq/PHU835o0 (This link if provided for information/ educational purposes only.) Interpretation/Re sult: Negative for intraepithelial lesion or malignancy. [facility] LMP: 05/2021 [facility] Prev. BX: NONE GIVEN [facility] Prev. PAP: 2,018 [facility] SOURCE: Cervix [facility] Statement Of Adequacy: SEE COMMENT [facility] Comment: Satisfactory for evaluation. Endocervical/transformation zone component absent. 06/03/2021 10:3 5 AM EST us Betsy Naqvi MD LAB PATHOLOGY ORDERABLES Lorna clements Result [facility] [address] from Last 3 Months or Most Recently Relevant to Health Maintenance Insurance [facility] * Guarantor: Mary Gonzalez Account Type Relation to Patient Date of Phone Billing Address Personal/[place] [address] * Guarantor: Mary Gonzalez Account Type Relation to Patient Date of Phone Billing Address Personal/[place] [address] Care Teams Aerospace Stress Engineer Relationship Specialty Start Date End Date Betsy Naqvi MD [address] [place] [address] [place] [address] PCP - General Family Medicine 09/11/18
--- OUTSIDE RECORDS SUMMARY | 2025-05-12 13:03 | XMS_ITS | Encounter Summary ---
Author Organization [employer] Address [address] [facility] 7t [place] [address] Care Team Providers Care Senior Medical Writer Name Role Phone Betsy Naqvi MD Primary Care Provider [phone] Encounter Details Date Type Department Care Team ([facility] st Contact Info) Description 03/06/2025 Orders Only [facility] [address] [place] [id number] Provider, MD Lv Social History Tobacco Use [...] Name Priority Date/Time Associated Diagnosis Comments VITAMIN A Routine 03/02/2025 1:43 PM EDT ZINC Routine 03/02/2025 10:11 AM EDT documented in this encounter Results * Vitamin A (03/02/2025 1:43 PM EDT) Blood Venous blood specimen / Unknown [facility] Provider LAB BLOOD ORDERABLES Lorna l Result * Zinc (03/02/2025 10:11 AM EDT) Blood Venous blood specimen / Unknown [facility] Provider LAB BLOOD ORDERABLES Lorna l Result documented in this encounter Visit Diagnoses Not on filedocumented in this encounter Additional Health Concerns Assessment Noted Time PHQ-9 Depression Total Score: 0 03/13/20 23 9:01 AM EDT documented as of this encounter Care Teams Senior Medical Writer Relationship Specialty Start Date End Date Betsy Naqvi MD [address] [place] [address] PCP - General Family Medicine 09/11/18 documented as of this encounter
--- OUTSIDE RECORDS SUMMARY | 2025-05-12 13:03 | XMS_ITS | Encounter Summary ---
Author Organization [employer] Address [address] [facility] 7t [place] [address] Care Team Providers Care Nuclear Equipment Operator Name Role Phone Betsy Naqvi MD Primary Care Provider [phone] Encounter Details Date Type Department Care Team ([facility] st Contact Info) Description 12/25/2023 Orders Only [facility] [address] [place] [address] Provider, MD Lv Social History Tobacco Use [...] FLUIDS AND STOOL S ORDERABLES Final Result * CBC (12/24/2023 9:21 AM EDT) Blood Venous blood specimen / Unknown Historical Provider LAB BLOOD ORDERABLES Lorna l Result * Hemoglobin A1c (12/24/2023 9:16 AM EDT) Blood Venous blood specimen / Unknown Result [facility] LAB BLOOD ORDERABLES Lorna l Result * PTH, Intact Without Calcium (12/24/2023 9:14 AM EDT) Blood Venous blood specimen / Unknown Result [facility] LAB BLOOD ORDERABLES Lorna l Result * Lipid Panel, Standard (12/24/2023 9:12 AM EDT) Blood Venous blood specimen / Unknown Result [facility] POINT OF CARE TEST ENTER/ EDIT ORDERABLES Final Result * Vitamin B12 (12/24/2023 9:09 AM EDT) Blood Venous blood specimen / Unknown Result [facility] LAB BLOOD ORDERABLES Lorna l Result * Vitamin D 25 hydroxy (12/24/2023 9:09 AM EDT) Blood Venous blood specimen / Unknown Result [facility] LAB BLOOD ORDERABLES Lorna l Result * Comprehensive Metabolic Panel (12/24/2023 9:09 AM EDT) Blood Venous blood specimen / Unknown Result [facility] LAB BLOOD ORDERABLES Lorna l Result * C-reactive Protein (12/24/2023 9:09 AM EDT) Blood Venous blood specimen / Unknown Result [facility] LAB BLOOD ORDERABLES Lorna l Result * [...] Blood Venous blood specimen / Unknown Result [facility] Historical Provider LAB BLOOD ORDERABLES Lorna l Result documented in this encounter Visit Diagnoses Not on filedocumented in this encounter Additional Health Concerns Assessment Noted Time PHQ-9 Depression Total Score: 0 03/13/20 23 9:01 AM EDT documented as of this encounter Care Teams Nuclear Equipment Operator Relationship Specialty Start Date End Date Betsy Naqvi MD [address] [place] [address] PCP - General Family Medicine 09/11/18 documented as of this encounter
--- OUTSIDE RECORDS SUMMARY | 2025-05-12 13:03 | XMS_ITS | Encounter Summary ---
Author Organization [employer] Address [address] [facility] 7t [place] [address] Care Team Providers Care Magazine Writer Name Role Phone Betsy Naqvi MD Primary Care Provider [phone] Encounter Details Date Type Department Care Team ([facility] st Contact Info) Description 03/03/2025 Orders Only [facility] [address] [place] [id number] Provider, MD Lv Social History Tobacco Use [...] Procedure Name Priority Date/Time Associated Diagnosis Comments HEMOGLOBIN A1C Routine 03/02/2025 11:04 AM EDT VITAMIN D,25-OH,TOTAL,IA Routine 025 11:03 AM EDT CBC Routine 03/02/2025 11:03 AM EDT VITAMIN B12 Routine 03/02/2025 11:03 AM EDT LIPID PANEL, STANDARD Routine 03/02/2025 11:00 AM EDT IRON AND TOTAL IRON BINDING CAPACITY Routine 03/02/2025 10:52 AM EDT C-REACTIVE PROTEIN Routine 03/02/2025 10 :52 AM EDT TSH Routine 03/02/2025 10:52 AM EDT COMPREHENSIVE METABOLIC PANEL Routine 03/02/2025 10:52 AM EDT documented in this encounter Results * Hemoglobin A1c (03/02/2025 11:04 AM EDT) Blood Venous blood specimen / Unknown [facility] Provider LAB BLOOD ORDERABLES Lorna l Result * CBC (03/02/2025 11:03 AM EDT) Blood Venous blood specimen / Unknown [facility] Provider LAB BLOOD ORDERABLES Lorna l Result * Vitamin B12 (03/02/2025 11:03 AM EDT) Blood Venous blood specimen / Unknown [facility] Provider LAB BLOOD ORDERABLES Lorna l Result * Vitamin D, 25-Hydroxy, Total, Immunoassay (03/02/2025 11:03 AM EDT) Blood Result [facility] Provider MD LAB BLOOD ORDERABLES Lorna l Result * Lipid Panel, Standard (03/02/2025 11:00 AM EDT) Blood Venous blood specimen / Unknown Result [facility] Provider MD LAB BLOOD ORDERABLES Lorna l Result * Comprehensive Metabolic Panel (03/02/2025 10:52 AM EDT) Blood Venous blood specimen / Unknown Result [facility] Provider MD LAB BLOOD ORDERABLES Lorna l Result * TSH (03/02/2025 10:52 AM EDT) Blood Venous blood specimen / Unknown Result [facility] Provider MD LAB BLOOD ORDERABLES Lorna l Result * Iron And Total Iron Binding Capacity (03/02/2025 10:52 AM EDT) Blood Venous blood specimen / Unknown Result [facility] MD LAB BLOOD ORDERABLES Lorna l Result * C-reactive Protein (03/02/2025 10:52 AM EDT) Blood Venous blood specimen / Unknown Result [facility] Provider MD LAB BLOOD ORDERABLES Lorna l Result documented in this encounter Visit Diagnoses Not on filedocumented in this encounter Additional Health Concerns Assessment Noted Time PHQ-9 Depression Total Score: 0 03/13/20 23 9:01 AM EDT documented as of this encounter Care Teams Magazine Writer Relationship Specialty Start Date End Date Betsy Naqvi MD [address] [place] [address] PCP - General Family Medicine 09/11/18 documented as of this encounter
== END 2025-05-12 10:47 | disposition home or self-care (01) ==
LOC: HO.HHCX 10:46
PROVIDERS: Visit Provider Emergency Medicine
DX: R07.89 Other chest pain (principal); S29.9XXD Unspecified injury of thorax, subsequent encounter
CPT/HCPCS: 71101

== ENCOUNTER → 2025-05-12 12:00 | Outpatient (BNV) | payer MEDICAID, SELFPAY | PROVIDERS: Visit Provider Radiology Diagnostic Radiology | DX: R07.89 Other chest pain (principal); M89.8X8 Other specified disorders of bone, other site | CPT/HCPCS: 71101 ==

== ENCOUNTER 2025-05-19 12:25 | Outpatient (REF) | payer MEDICAID, SELFPAY ==
--- NOTE | ~2025-05-19 | US_ITS ---
CLINICAL HISTORY: DUB Transabdominal and transvaginal pelvic ultrasound Comparison: None Findings: Uterus 8.2 x 5.0 x 5.6 cm. Endometrium 5 mm. 2.1 x 1.5 cm anterior fibroid. No free fluid. Right ovary 2.4 x 1.5 x 2.2 cm. Left ovary 1.7 x 1.8 x 1.7 cm. No significant focal abnormality. Impression: Anterior fibroid, otherwise unremarkable This document has been electronically signed by: Fuentes Gaffney MD on 05/19/2025 19:26:04
--- OUTSIDE RECORDS SUMMARY | 2025-05-19 15:40 | XMS_ITS | Encounter Summary ---
Author Organization [employer] Address [address] [place] [address] 7[address] [place] [address] Care Team Providers Care Bobbin Disker Name Role Phone Betsy Naqvi MD Primary Care Provider [phone] Encounter Details Date Type Department Care Team (Late st Contact Info) Description 08/06/2024 Orders Only [facility] [address] [place], [place] [id number] Provider, MD Lv Social History Tobacco Use [...] documented as of this encounter Care Teams Bobbin Disker Relationship Specialty Start Date End Date Betsy Naqvi MD [address] [place] [address] PCP - General Family Medicine 09/11/18 documented as of this encounter
--- OUTSIDE RECORDS SUMMARY | 2025-05-19 15:40 | XMS_ITS | Encounter Summary ---
Author Organization [employer] Address [address] [facility] 7t [place] [address] Care Team Providers Care Hr Assistant Name Role Phone Betsy Naqvi MD Primary Care Provider [phone] Encounter Details Date Type Department Care Team ([facility] st Contact Info) Description 08/04/2024 Orders Only [facility] [address] [place] [id number] Provider, MD Lv Social History Tobacco Use [...] documented as of this encounter Care Teams Hr Assistant Relationship Specialty Start Date End Date Betsy Naqvi MD [address] [place] [address] PCP - General Family Medicine 09/11/18 documented as of this encounter
--- OUTSIDE RECORDS SUMMARY | 2025-05-19 15:40 | XMS_ITS | Encounter Summary ---
Author Organization [employer] Address [address] [facility] [place] [address] Care Team Providers Care Passenger Screener Name Role Phone Betsy Naqvi MD Primary Care Provider [phone] Reason for Visit * Reason Onset Date Comments Paperwork/Forms 01/16/2024 Encounter Details Date Type Department Care Team ([facility] st Contact Info) Description 01/16/[address] [facility] MEDICINE [address] [place] [address] Betsy Naqvi MD 505 [facility] [place] [address] Paperwork/Forms Social History Tobacco Use Types Packs/Day [...] documented as of this encounter Care Teams Passenger Screener Relationship Specialty Start Date End Date Betsy Naqvi MD [address] [place] [address] PCP - General Family Medicine 09/11/18 documented as of this encounter
--- OUTSIDE RECORDS SUMMARY | 2025-05-19 15:40 | XMS_ITS | Encounter Summary ---
Author Organization [employer] Address [address] [facility] 7t [place] [address] Care Team Providers Care Tufting Supervisor Name Role Phone Betsy Naqvi MD Primary Care Provider [phone] Encounter Details Date Type Department Care Team ([facility] st Contact Info) Description 08/05/2024 Orders Only [facility] CH[facility] MED & PEDS [address] [place] [phone] Provider, MD Lv Social History Tobacco Use [...] Blood Venous blood specimen / Unknown Result [facility] Provider LAB BLOOD BANK TEST ORDER SUSANA Final Result * MRSA Culture Screen (08/05/2024 10:21 AM EST) Swab Nasopharyngeal structure / Unknown Result [facility] Provider LAB MICROBIOLOGY - GENERA L ORDERABLES Final Result * ABO Group (08/04/2024 3:22 PM EST) [facility] Provider MD LAB BLOOD BANK TEST ORDER SUSANA Final Result * Antibody screen (08/04/2024 3:22 PM EST) Blood Venous blood specimen / Unknown [facility] Provider MD LAB BLOOD ORDERABLES Lorna l Result * Basic Metabolic Panel (08/04/2024 3:14 PM EST) Blood Venous blood specimen / Unknown [facility] Provider MD LAB BLOOD ORDERABLES Lorna l Result * Albumin (08/04/2024 3:14 PM EST) Blood Venous blood specimen / Unknown Result [facility] Provider MD LAB BLOOD ORDERABLES Lorna l Result * Urinalysis, Complete, with Reflex to Culture (08/04/2024 3:06 PM EST) Urine Result [facility] Provider LAB URINE ORDERABLES Lorna l Result * AMB HCG URINE TEST (08/04/2024 3:03 PM EST) Result [facility] Provider LAB BLOOD ORDERABLES Lorna l Result documented in this encounter Visit Diagnoses Not on filedocumented in this encounter Additional Health Concerns Assessment Noted Time PHQ-9 Depression Total Score: 0 03/13/20 23 9:01 AM EDT documented as of this encounter Care Teams Tufting Supervisor Relationship Specialty Start Date End Date Betsy Naqvi MD 505 [place] [address] PCP - General Family Medicine 09/11/18 documented as of this encounter
--- OUTSIDE RECORDS SUMMARY | 2025-05-19 15:40 | XMS_ITS | Encounter Summary ---
Author Organization [employer] Address [address] [place] [address] 7t [place] [address] Care Team Providers Care Superintendent Track Name Role Phone Betsy Naqvi MD Primary Care Provider [phone] Encounter Details Date Type Department Care Team (Late st Contact Info) Description 02/14/2024 Orders Only [facility] [address] [place], [place] [phone] Provider, MD Lv Social History Tobacco Use [...] documented as of this encounter Care Teams Superintendent Track Relationship Specialty Start Date End Date Betsy Naqvi MD [address] [place] [address] PCP - General Family Medicine 09/11/18 documented as of this encounter
--- OUTSIDE RECORDS SUMMARY | 2025-05-19 15:40 | XMS_ITS | Encounter Summary ---
Author Organization [employer] Address 75 [facility] 7t [place] [address] Care Team Providers Care Plastic Extrusion Operator Name Role Phone Betsy Naqvi MD Primary Care Provider [phone] Encounter Details Date Type Department Care Team ([facility] st Contact Info) Description 2023 Orders Only [facility] MED & PEDS [address] [place] [address] Provider, MD Lv Social History Tobacco Use [...] documented as of this encounter Care Teams Plastic Extrusion Operator Relationship Specialty Start Date End Date Betsy Naqvi MD [address] [place] [address] PCP - General Family Medicine 09/11/18 documented as of this encounter
--- OUTSIDE RECORDS SUMMARY | 2025-05-19 15:40 | XMS_ITS | Encounter Summary ---
Author Organization [employer] Address [address] [place] [address] 7t [place] [address] Care Team Providers Care Milled Rubber Tender Name Role Phone Betsy Naqvi MD Primary Care Provider [phone] Encounter Details Date Type Department Care Team (Late st Contact Info) Description 12/28/2023 Orders Only [place] [facility] [address] [place], [place] [phone] Provider, MD Lv Social History Tobacco Use [...] documented as of this encounter Care Teams Milled Rubber Tender Relationship Specialty Start Date End Date Betsy Naqvi MD [address] [place] [address] PCP - General Family Medicine 09/11/18 documented as of this encounter
--- OUTSIDE RECORDS SUMMARY | 2025-05-19 15:40 | XMS_ITS | Encounter Summary ---
Author Organization [employer] Address [address] [place] [address] 7t [place] [address] Care Team Providers Care Cleaner And Dyer Name Role Phone Betsy Naqvi MD Primary Care Provider [phone] Encounter Details Date Type Department Care Team (Late st Contact Info) Description 02/13/2024 Orders Only [facility] [address] [place], [place] [phone] Provider, MD Lv Social History Tobacco Use [...] documented as of this encounter Care Teams Cleaner And Dyer Relationship Specialty Start Date End Date Betsy Naqvi MD 505 [place] [address] PCP - General Family Medicine 09/11/18 documented as of this encounter
--- OUTSIDE RECORDS SUMMARY | 2025-05-19 15:40 | XMS_ITS | Encounter Summary ---
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 Not on file Not on file documented as of this encounter Functional Status * Calculated C-SSRS Risk Score (Lifetime/Recent) Answer Date of Assessment Author No Risk Indicated 08/05/2024 4:40 PM Kaila Shah, CROW * Olivia Suicide Severity Rating Scale (Screener/Recent Self-Report) Question [...] 06/01/2025 10:00 AM EST Office Visit [facility] General Surgical Care [address] [place] [address] Yulisa Rosario MD 15 [facility], 2nd [place] [address] [email or web address] documented as of this encounter Visit Diagnoses Not on filedocumented in this encounter Additional Health Concerns Assessment Noted Time PHQ-2 Depression Total Score: 0 01/01/20 24 12:06 PM EDT documented as of this encounter Care Teams Presentation Manager Relationship Specialty Start Date End Date Betsy Naqvi MD [address] [place] [address] PCP - General Internal Medicine 10/26/23 documented as of this encounter Additional Source Comments The information contained in this document represents components of the legal health record. It is not the complete legal health record.[facility]
--- OUTSIDE RECORDS SUMMARY | 2025-05-19 15:40 | XMS_ITS | Encounter Summary ---
Author Organization [employer] Address 75 [facility] 7t [place] [address] Care Team Providers Care Scarf And Anneal Operator Name Role Phone Betsy Naqvi MD Primary Care Provider [phone] Encounter Details Date Type Department Care Team ([facility] st Contact Info) Description 08/07/2024 Orders Only [facility] CH[facility] MED & PEDS [address] [place] [address] Provider, MD vL Social History Tobacco Use Types Packs/Day Years [...] documented as of this encounter Care Teams Scarf And Anneal Operator Relationship Specialty Start Date End Date Betsy Naqvi MD [address] [place] [address] PCP - General Family Medicine 09/11/18 documented as of this encounter
--- OUTSIDE RECORDS SUMMARY | 2025-05-19 15:41 | XMS_ITS | Encounter Summary ---
Author Organization [employer] Address [address] [facility] 7t [place] [address] Care Team Providers Care Handle And Vent Machine Operator Name Role Phone Betsy Naqvi MD Primary Care Provider [phone] Encounter Details Date Type Department Care Team ([facility] st Contact Info) Description 03/03/2025 Orders Only [facility] CHC MED & PEDS [address] [place] [phone] Provider, MD Lv Social History Tobacco Use [...] EDT) Blood Venous blood specimen / Unknown [facility] Provider LAB BLOOD ORDERABLES Lorna l Result * CBC (03/02/2025 11:03 AM EDT) Blood Venous blood specimen / Unknown [facility] Provider LAB BLOOD ORDERABLES Lorna l Result * Vitamin B12 (03/02/2025 11:03 AM EDT) Blood Venous blood specimen / Unknown [facility] Provider LAB BLOOD ORDERABLES Lorna l Result * Vitamin D, 25-Hydroxy, Total, Immunoassay (03/02/2025 11:03 AM EDT) Blood Result [facility] Provider MD LAB BLOOD ORDERABLES Lorna l Result * Lipid Panel, Standard (03/02/2025 11:00 AM EDT) Blood Venous blood specimen / Unknown Result [facility] Provider MD LAB BLOOD ORDERABLES Lorna l Result * Comprehensive Metabolic Panel (03/02/2025 10:52 AM EDT) Blood Venous blood specimen / Unknown Result [facility] Provider MD LAB BLOOD ORDERABLES Lorna l Result * TSH (03/02/2025 10:52 AM EDT) Blood Venous blood specimen / Unknown Result [facility] Provider MD LAB BLOOD ORDERABLES Lorna l Result * Iron And Total Iron Binding Capacity (03/02/2025 10:52 AM EDT) Blood Venous blood specimen / Unknown Result [facility] MD LAB BLOOD ORDERABLES Lorna l Result * C-reactive Protein (03/02/2025 10:52 AM EDT) Blood Venous blood specimen / Unknown Result [facility] Provider MD LAB BLOOD ORDERABLES Lorna l Result documented in this encounter Visit Diagnoses Not on filedocumented in this encounter Additional Health Concerns Assessment Noted Time PHQ-9 Depression Total Score: 0 03/13/20 23 9:01 AM EDT documented as of this encounter Care Teams Handle And Vent Machine Operator Relationship Specialty Start Date End Date Betsy Naqvi MD 505 [place] [address] PCP - General Family Medicine 09/11/18 documented as of this encounter
--- OUTSIDE RECORDS SUMMARY | 2025-05-19 15:41 | XMS_ITS | Clinical Summary ---
Author Organization [facility] Address [address] [facility] [address] [place] [address] Phone Care Team Providers Care Pattern Hanger Name Role Phone Betsy Naqvi MD Primary Care Provider [phone] Allergies Active Allergy Reactions Criticality Noted Date [...] ORAL) Take by mouth. A ctive multivitamin-mi [id number] K 45 mg iron- 800 mcg-120 mcg [...] chili without beans, scrambled eggs, cottage cheese, South Korean yogurt, cauliflower rice, or you may place any food in the rn post partum a director food and beverage to create pureed food. 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 This test has not been cleared or approved by the U.S. Food and Drug Administration. Blood 03/02/2025 9:56 AM EDT 03/02/2025 10:07 AM EDT us Yulisa Rosario MD LAB BLOOD ORDERABLES Final Result [facility] [address] [place] [address] * (ABNORMAL) Comprehensive metabolic panel (03/02/2025 9:56 AM EDT) SODIUM 140 133 - 146 mmol/L [facility] POTASSIUM 3.8 3.3 - 5.1 mmol/L [facility] CHLORIDE 103 96 - 108 mmol/L [facility] CO2 23 21 - 35 mmol/L [facility] BUN 10 6 - 19 mg/dL [facility] CREATININE 0.80 0.5 - 1.5 mg/dL [facility] GLUCOSE 103(H) 70 - 99 mg/dL [facility] ALBUMIN 4.3 3.9 - 4.8 g/dL [facility] TOTAL PROTEIN 7.2 6.5 - 8.0 g/dL [facility] CALCIUM 9.6 8.4 - 10.3 mg/dL [facility] ALKALINE PHOSPHATASE 60 39 - 117 U/L [facility] TOTAL BILIRUBIN 0.5 0.0 - 1.2 mg/dL [facility] AST 22 0 - 37 U/L [facility] ALT 10 0 - 40 U/L [facility] GLOBULIN 2.9 1 - 4.8 g/dL [facility] EGFR 97 >59 mL/min/1.7 3m2 [facility] Comment:Estimated glomerular filtration rate calculated using the CKD-EPI refit equation. ANION GAP 18 10 - 20 mmol/L [facility] Blood 03/02/2025 9:56 AM EDT 03/02/2025 10:07 AM EDT us Yulisa Rosario MD LAB BLOOD ORDERABLES Final Result Performing Organization Address City/[facility]/ZIP Co de Phone Number [address] [address] * (ABNORMAL) Iron and iron binding capacity (03/02/2025 9:56 AM EDT) IRON 213(H) 30 - 160 ug/dL [facility] IRON BINDING CAPACITY 427 228 - 428 ug/dL [facility] TRANSFERRIN SATURAT. 50 15 - 50 % [facility] Blood 03/02/2025 9:56 AM EDT 03/02/2025 10:07 AM EDT us Yulisa Rosario MD LAB BLOOD ORDERABLES Final Result Performing Organization Address City/[facility]/ZIP Co de Phone Number [address] [address] * Vitamin A (03/02/2025 9:56 AM EDT) VITAMIN A 47.9 32.5 - 78.0 mcg/dL [facility] Comment: (NOTE) ADDITIONAL INFORMATION This test was developed and its performance characteristics determined by [facility] in a manner consistent with CLIA requirements. This test has not been cleared or approved by the U.S. Food and Drug Administration. Blood 03/02/2025 9:56 AM EDT 03/02/2025 10:07 AM EDT us Yulisa Rosario MD LAB BLOOD ORDERABLES Final Result Performing Organization Address City/[facility]/ZIP Co de Phone Number [facility] LAB MED/PATH [address] [place] [address] * 25-OH vitamin D (03/02/2025 9:56 AM EDT) 25 OH VIT D (TOTAL) 30 30 - 60 ng/mL [facility] Blood 03/02/2025 9:56 AM EDT 03/02/2025 10:07 AM EDT us Yulisa Rosario MD LAB BLOOD ORDERABLES Final Result Performing Organization Address [facility] [[email or web address]] Co de Phone Number [facility] [address] [place] [address] * (ABNORMAL) Insulin Level (03/02/2025 9:56 AM EDT) Pathologist [facility] INSULIN 105.0(H) 2.6 - 25.0 uIU/mL [facility] Blood 03/02/2025 9:56 AM EDT 03/02/2025 10:07 AM EDT us Yulisa Rosario MD LAB BLOOD ORDERABLES Final Result Performing Organization Address City/[facility]/ZIP Co de Phone Number [address] [address] * (ABNORMAL) CBC (03/02/2025 9:56 AM EDT) WBC 7.06 4.00 - 11.00 K/uL [facility] RBC 4.96 4.00 - 5.20 M/uL [facility] HGB 13.2 12.0 - 16.0 g/dL [facility] HCT 42.4 36.0 - 46.0 % [facility] PLT 275 150 - 450 K/uL [facility] MCV 85.5 80.0 - 100.0 fL [facility] MCH 26.6(L) 27.0 - 31.0 pg [facility] MCHC 31.1(L) 32.0 - 36.0 g/dL [facility] RDW 14.6(H) 11.5 - 14.5 % [facility] MPV 10.3 8.4 - 12.0 fL [facility] NRBC 0.00 0.00 /100 WBCs [facility] ABSOLUTE NRBC 0.00 0.00 K/uL [facility] Blood 03/02/2025 9:56 AM EDT 03/02/2025 10:07 AM EDT us Yulisa Rosario MD LAB BLOOD ORDERABLES Final Result Performing Organization Address [facility] de Phone Number [address] [address] * C-Reactive Protein (03/02/2025 9:56 AM EDT) C REACTIVE PROTEIN <3.0 0.0 - 4.0 mg/L [facility] Blood 03/02/2025 9:56 AM EDT 03/02/2025 10:07 AM EDT us Yulisa Rosario MD LAB BLOOD ORDERABLES Final Result Performing Organization Address [facility]/ZIP Co de Phone Number [address] [address] * TSH (03/02/2025 9:56 AM EDT) TSH 1.89 0.27 - 4.20 uIU/mL [facility] Blood 03/02/2025 9:56 AM EDT 03/02/2025 10:07 AM EDT us Yulisa Rosario MD LAB BLOOD ORDERABLES Final Result Performing Organization Address City/[facility] [[email or web address]] Co de Phone Number [address] [address] * Vitamin B1 (thiamine) (03/02/2025 9:56 AM EDT) VITAMIN B1 101 70 - 180 nmol/L [facility] MED/PATH [facility] Comment: (NOTE) ADDITIONAL INFORMATION This test was developed and its performance characteristics determined by [facility] in a manner consistent with CLIA requirements. This test has not been cleared or approved by the U.S. Food and Drug Administration. Blood 03/02/2025 9:56 AM EDT 03/02/2025 10:07 AM EDT us Yulisa Rosario MD LAB BLOOD ORDERABLES Final Result Performing Organization Address City/[facility] [[email or web address]] Co de Phone Number [facility] LAB MED/PATH [facility] [address] [place] [address] * Parathyroid hormone (PTH) (03/02/2025 9:56 AM EDT) PARATHYROID HORMONE 28 15 - 65 pg/mL [facility] Blood 03/02/2025 9:56 AM EDT 03/02/2025 10:07 AM EDT Yulisa Rosario MD LAB BLOOD ORDERABLES Final Result [address] [address] * Hemoglobin A1c (03/02/2025 9:56 AM EDT) HEMOGLOBIN A1C 5.1 4.3 - 5.8 % [facility] Blood 03/02/2025 9:56 AM EDT 03/02/2025 10:07 AM EDT Yulisa Rosario MD LAB BLOOD ORDERABLES Final Result [address] [address] * Vitamin B12 (03/02/2025 9:56 AM EDT) VITAMIN B12 258 232 - 1,245 pg/mL [facility] Blood 03/02/2025 9:56 AM EDT 03/02/2025 10:07 AM EDT us Yulisa Rosario MD LAB BLOOD ORDERABLES Final Result Performing Organization Address [facility] [[email or web address]] Co de Phone Number [address] [address] * (ABNORMAL) Lipid panel (03/02/2025 9:56 AM EDT) HDL 61 mg/dL [facility] Comment: Interpretation <40 mg/dL: Low HDL cholesterol (major risk factor for CHD) Greater than or equal to 60 mg/dL: High HDL cholesterol ( negative risk factor for CHD) HDL - cholesterol is affected by a number of factors, e.g. smoking, excerise, hormones, sex and age. CHOLESTEROL 132 0 - 240 mg/dL [facility] TRIGLYCERIDES 91 30 - 160 mg/dL [facility] LDL 53 50 - 129 mg/dL [facility] Comment: LDL levels in terms of risk for coronary heart disease: <100 mg/dL: Optimal 100-129 mg/dL: Near or above optimal 130-159 mg/dL: Borderline high 160-189 mg/dL: High >190 mg/dL: Very High CARDIAC RISK RATIO 2.2(L) 3.3 - 4.4 C [facility] Blood 03/02/2025 9:56 AM EDT 03/02/2025 10:07 AM EDT us Yulisa Rosario MD LAB BLOOD ORDERABLES Final Result Performing Organization Address City/[facility] [[email or web address]] Co de Phone Number [address] [address] from Last 3 Months Insurance [id number] C3 ACO C3 ACO [facility] [id number] C3 ACO ARACELI [address] C3 ACO [place] [id number] [facility] [place] CITYPhong[address] C3 ACO [place] [id number] [facility] [place]Ph[facility] C3 ACO [place] [phone] Advance Directives For more information, please contact: [phone] (9AM - 5PM [place]/[facility], Sunday-Sunday) * Full Code (Latest Code Status on File) Date Activated Date Inactivated Comments 08/05/2024 2:31 PM Question Answer Comments Code Status Confirmed With: Patient * Full Code Date Activated Date Inactivated Comments 08/05/2024 6:09 AM 08/05/2024 2:31 PM Question Answer Comments Code Status Confirmed With: Patient Care Teams Pattern Hanger Relationship Specialty Start Date End Date Betsy Naqvi MD [address] [place] [address] PCP - General Internal Medicine 10/26/23 Additional Source Comments The information contained in this document represents components of the legal health record. It is not the complete legal health record.[facility]
--- OUTSIDE RECORDS SUMMARY | 2025-05-19 15:41 | XMS_ITS | Encounter Summary ---
Author Organization [employer] Address [address] [facility] 7t [place] [address] Care Team Providers Care Granite Fabricator Name Role Phone Betsy Naqvi MD Primary Care Provider [phone] Encounter Details Date Type Department Care Team ([facility] st Contact Info) Description 03/04/2025 Orders Only [facility] CHC MED & PEDS [address] [place] [phone] Provider, MD Lv Social History Tobacco Use [...] documented as of this encounter Care Teams Granite Fabricator Relationship Specialty Start Date End Date Betsy Naqvi MD [address] [place] [address] PCP - General Family Medicine 09/11/18 documented as of this encounter
--- OUTSIDE RECORDS SUMMARY | 2025-05-19 15:41 | XMS_ITS | Encounter Summary ---
Author Organization [employer] Address [address] [facility] 7t [place] [address] Care Team Providers Care Outside Physical Damage Appraiser Name Role Phone Betsy Naqvi MD Primary Care Provider [phone] Encounter Details Date Type Department Care Team ([facility] st Contact Info) Description 03/09/2025 Orders Only [facility] CHC MED & PEDS [address] [place] [phone] Provider, MD Lv Social History Tobacco Use [...] documented as of this encounter Care Teams Outside Physical Damage Appraiser Relationship Specialty Start Date End Date Betsy Naqvi MD [address] [place] [address] PCP - General Family Medicine 09/11/18 documented as of this encounter
--- OUTSIDE RECORDS SUMMARY | 2025-05-19 15:41 | XMS_ITS | Clinical Summary ---
Author Organization [employer] Address [address] [place] [address] [address] [place] [address] Care Team Providers Care Ethanol Maintenance Mechanic Name Role Phone Betsy Naqvi MD Primary Care Provider [phone] Allergies Active Allergy Reactions Criticality Noted Date [...] shake or a protein bar or [place] yogurt or cottage cheese to be consumed [...] 9:40 AM EDT Office Visit [facility] [address] [place] [id number] Tucker Hewitt MD Chest wall pain (Primary Dx); Chest injury, initial encounter 05/12/2025 Orders Only [facility] [address] [place] [address] Tucker Hewitt MD 05/12/2025 Travel 03/12/2025 1:00 PM EDT Office Visit [facility] [address] [place] [address] Betsy Naqvi MD DUB (dysfunctional uterine bleeding) (Primary Dx) 03/12/2025 Travel 03/11/2025 Telephone [facility] [address] [place] [id number] Betsy Naqvi MD Nurse Triage 03/09/2025 Orders Only [facility] [address] [place] [address] ProviderLv MD 03/06/2025 Orders Only [facility] [address] [place] [address] Lv Champagne MD 03/04/2025 Orders Only [facility] [address] [facility] [place] [address] Lv Champagne MD 03/03/2025 Orders Only [facility] [address] [place] [address] ProviderLv MD from Last 3 Months Immunizations Immunization [...] Smear 06/03/2026 06/03/2021 Lipid Panel 03/02/2030 03/02/2025, 06/0 09/2023, 03/07/2023, Additional history exists Zoster Vaccines (1 [...] PM EDT Narrative 05/12/2025 12:23 PM EDT [facility] [address] [place] [address] XRay Report Signed Patient: Mary Gonzalez MR #: [id number] : 1985 Acct:[id number] Age/Sex: 39 / F ADM Date: 05/12/25 Loc: HO.HHCX Attending Dr: Tucker Hewitt MD Ordering Physician: TUCKER HEWITT MD Date of Service: 05/12/25 Procedure(s): XR ribs LT min 3V w CXR1V Accession Number(s): [id number] cc: TUCKER HEWITT MD Reason for Exam: [...] 05/12/25 1220 DD/ 1200 TD/TT: 05/12/25 1214 Dining Room Cashier: PENELOPE Procedure Note Donotuseinterpreter, Image - 05/12/2025 [facility] [address] [place] [address] XRay Report Signed Patient: Mary GonzalezMR #: [id number] : 1985Acct:[id number] Age/Sex: 39 / FADM Date: 05/12/25 Loc: HO.HHCX Attending Dr: Tucker Hewitt MD Ordering Physician: TUCKER HEWITT MD Date of Service: 05/12/25 Procedure(s): XR ribs LT min 3V w CXR1V Accession Number(s): [id number] cc: TUCKER HEWITT MD Reason for Exam: [...] 05/12/25 1220 DD/ 1200 TD/TT: 05/12/25 1214 Dining Room Cashier: PENELOPE Tucker Hewitt MD IMG XR PROCEDURES Edited Result - Final * Insulin (03/02/2025 3:16 PM EDT) Blood Venous blood specimen / Unknown Result [facility] MD LAB BLOOD ORDERABLES Lorna l Result * Vitamin A (03/02/2025 1:43 PM EDT) Blood Venous blood specimen / Unknown Result [facility] MD LAB BLOOD ORDERABLES Lorna l Result * Hemoglobin A1c (03/02/2025 11:04 AM EDT) Blood Venous blood specimen / Unknown Result [facility] MD LAB BLOOD ORDERABLES Lorna l Result * Vitamin D, 25-Hydroxy, Total, Immunoassay (03/02/2025 11:03 AM EDT) Blood Result [facility] MD LAB BLOOD ORDERABLES Lorna l Result * CBC (03/02/2025 11:03 AM EDT) Blood Venous blood specimen / Unknown Result [facility] MD LAB BLOOD ORDERABLES Lorna l Result * Vitamin B12 (03/02/2025 11:03 AM EDT) Only the most recent of2 resultswithin the time period is included. Blood Venous blood specimen / Unknown Result [facility] MD LAB BLOOD ORDERABLES Lorna l Result * Lipid Panel, Standard (03/02/2025 11:00 AM EDT) Blood Venous blood specimen / Unknown Result [facility] MD LAB BLOOD ORDERABLES Lorna l Result * Iron And Total Iron Binding Capacity (03/02/2025 10:52 AM EDT) Blood Venous blood specimen / Unknown Result [facility] MD LAB BLOOD ORDERABLES Lorna l Result * C-reactive Protein (03/02/2025 10:52 AM EDT) Blood Venous blood specimen / Unknown Result [facility] MD LAB BLOOD ORDERABLES Lorna l Result * TSH (03/02/2025 10:52 AM EDT) Blood Venous blood specimen / Unknown Result [facility] MD LAB BLOOD ORDERABLES Lorna l Result * Comprehensive Metabolic Panel (03/02/2025 10:52 AM EDT) Blood Venous blood specimen / Unknown Result [facility] MD LAB BLOOD ORDERABLES Lorna l Result * Zinc (03/02/2025 10:11 AM EDT) Blood Venous blood specimen / Unknown Result [facility] MD LAB BLOOD ORDERABLES Lorna l Result * HEPATITIS B PROFILE (07/28/2021 2:59 PM EST) Pathologist [facility] Hepatitis B Core Antibody Nonreactive Nonreactive [facility] Hepatitis B Surface Antibody REACTIVE Nonreactive [facility] Comment:REACTIVE: > 11.99 mI U/mL Hepatitis B Surface Antigen Negative Negative [facility] HIV AB/AG Nonreactive Nonreactive [...] of detection of this assay. [employer] Director Experience HIV Ag/Ab Combo assay result and supplemental assay results should be interpreted in conjunction with the patient's clinical presentation, history and other laboratory results. If the results are inconsistent with clinical evidence, additional testing is suggested to confirm the result. 07/28/2021 2:59 PM EST Historical Provider MD HISTORICAL/NON ORDERABLE LABS Final Result Performing Organization Address [facility] Number [facility] [address] [place] [address], * HEPATITIS C AB W/REFL TO HCV RNA, QN, PCR (06/27/2021 12:35 PM EST) HEPATITIS C ANTIBODY NON-REACT SU NON-REACT SU [facility] INDEX 0.02 <1.00 [facility] Comment: HCV antibody was non-reactive. There is no laboratory evidence of HCV infection. In most cases, no further action is required. However, if recent HCV exposure is suspected, a test for HCV RNA (test code 36332) is suggested. For additional information please refer to http://education.[employer]Shelf/faq/RIY78m4 (This link is being provided for informational/ educational purposes only.) 06/27/2021 12:3 5 PM EST Betsy Naqvi MD HISTORICAL/NON ORDERABLE LABS Final Result Performing Organization Address [facility] [place] [address], * THINPREP TIS PAP AND HPV mRNA E6/E7 REFLEX HPV 16,18/45 (06/03/2021 10:35 AM EST) Clinical Information: HPV+ LEEP 12 YRS AGO IN .R [facility] COMMENT SEE COMMENT [facility] [...] with computer assisted technology. [facility] Deckhand Engineer: SEE COMMENT [facility] Comment: TUCKER, CT(ASCP) CT screening location: [place] [address] HPV nRNA E6/E7 Not Detected Not Detected [facility] Comment: Methodology: Director [employer]-Mediated Amplification This assay detects E6/E7 viral messenger RNA (mRNA) from 14 high-risk HPV types (16,18,31,33,35,39,45,51,52,56,58,59,66,68). The analytical performance characteristics of this assay have been determined by [employer]. The modifications have not been cleared or approved by the FDA. This assay has been validated pursuant to the CLIA regulations and is used for clinical purposes. For additional information, please refer to http://education.TheShelf/faq/TOJ874h9 (This link if provided for information/ educational purposes only.) Interpretation/Re sult: Negative for intraepithelial lesion or malignancy. [facility] LMP: 05/2021 [facility] Prev. BX: NONE [facility]IVEN [facility] Prev. PAP: 2,018 [facility] SOURCE: [employer] [facility] Statement Of Adequacy: SEE COMMENT [facility] Comment: Satisfactory for evaluation. Endocervical/transformation zone component absent. 06/03/2021 10:3 5 AM EST us Betsy Naqvi MD LAB PATHOLOGY ORDERABLES Lorna clements Result [facility] [address] from Last 3 Months or Most Recently Relevant to Health Maintenance Insurance [facility] C[facility] * Guarantor: Mary Gonzalez Account Type Relation to Patient Date of Phone Billing Address Personal/[place] [address] * Guarantor: Mary Gonzalez Account Type Relation to Patient Date of Phone Billing Address Personal/[place] [address] Care Teams Ethanol Maintenance Mechanic Relationship Specialty Start Date End Date Betsy Naqvi MD [address] [place] [address] [place] [address] PCP - General Family Medicine 09/11/18
--- OUTSIDE RECORDS SUMMARY | 2025-05-19 15:41 | XMS_ITS | Encounter Summary ---
Author Organization [employer] Address [address] [facility] [address] [place] [address] Care Team Providers Care Manager Creative Name Role Phone Betsy Naqvi MD Primary Care Provider [phone] Encounter Details Date Type Department Care Team ([facility] st Contact Info) Description 12/25/2023 Orders Only [facility] [address] [place] [address] Provider, MD Lv Social History Tobacco Use [...] Venous blood specimen / Unknown Result [facility] LAB BLOOD ORDERABLES Lorna l Result * PTH, Intact Without Calcium (12/24/2023 9:14 AM EDT) Blood Venous blood specimen / Unknown Result [facility] LAB BLOOD ORDERABLES Lorna l Result * Lipid Panel, Standard (12/24/2023 9:12 AM EDT) Blood Venous blood specimen / Unknown Result [facility] POINT OF CARE TEST ENTER/ EDIT ORDERABLES Final Result * Vitamin B12 (12/24/2023 9:09 AM EDT) Blood Venous blood specimen / Unknown Result [facility] LAB BLOOD ORDERABLES Lorna l Result * Vitamin D 25 hydroxy (12/24/2023 9:09 AM EDT) Blood Venous blood specimen / Unknown Result [facility] LAB BLOOD ORDERABLES Lorna l Result * Comprehensive Metabolic Panel (12/24/2023 9:09 AM EDT) Blood Venous blood specimen / Unknown Result [facility] LAB BLOOD ORDERABLES Lorna l Result * C-reactive Protein (12/24/2023 9:09 AM EDT) Blood Venous blood specimen / Unknown Result [facility] LAB BLOOD ORDERABLES Lorna l Result * [...] Blood Venous blood specimen / Unknown Result [facility] Historical Provider LAB BLOOD ORDERABLES Lorna l Result documented in this encounter Visit Diagnoses Not on filedocumented in this encounter Additional Health Concerns Assessment Noted Time PHQ-9 Depression Total Score: 0 03/13/20 23 9:01 AM EDT documented as of this encounter Care Teams Manager Creative Relationship Specialty Start Date End Date Betsy Naqvi MD [address] [place] [id number] PCP - General Family Medicine 09/11/18 documented as of this encounter
--- OUTSIDE RECORDS SUMMARY | 2025-05-19 15:41 | XMS_ITS | Encounter Summary ---
Author Organization [employer] Address [address] [facility] [address] [place] [address] Care Team Providers Care House Mover Helper Name Role Phone Betsy Naqvi MD Primary Care Provider Encounter Details Date Type Department Care Team ([facility] st Contact Info) Description 03/06/2025 Orders Only [facility] [address] [place] [id number] Provider, MD Lv Social History Tobacco Use [...] EDT) Blood Venous blood specimen / Unknown [facility] Provider LAB BLOOD ORDERABLES Lorna l Result * Zinc (03/02/2025 10:11 AM EDT) Blood Venous blood specimen / Unknown [facility] Provider LAB BLOOD ORDERABLES Lorna l Result documented in this encounter Visit Diagnoses Not on filedocumented in this encounter Additional Health Concerns Assessment Noted Time PHQ-9 Depression Total Score: 0 03/13/20 23 9:01 AM EDT documented as of this encounter Care Teams House Mover Helper Relationship Specialty Start Date End Date Betsy Naqvi MD [address] [place] [address] PCP - General Family Medicine 09/11/18 documented as of this encounter
== END 2025-05-19 12:26 | disposition home or self-care (01) ==
LOC: HO.HMGCX 12:25
PROVIDERS: PCP Pediatrics; Visit Provider Pediatrics
DX: N93.8 Other specified abnormal uterine and vaginal bleeding (principal)
CPT/HCPCS: 76830; 76856

== ENCOUNTER → 2025-05-19 12:40 | Outpatient (BNV) | payer MEDICAID, SELFPAY | PROVIDERS: PCP Pediatrics; Visit Provider Radiology Diagnostic Radiology | DX: D25.9 Leiomyoma of uterus, unspecified (principal); N93.8 Other specified abnormal uterine and vaginal bleeding | CPT/HCPCS: 76830; 76856 ==